=== PATIENT | male | born 1935 | race Caucasian/White ===

== ENCOUNTER 2020-06-03 07:11 | Outpatient (REF) | payer MEDICARE, OTHER, SELFPAY ==
[2020-06-03 08:22] LABS: MANUAL DIFF FLAG NO
[2020-06-03 08:35] LABS: Basophils Percent Auto 0.5 % (0-2); Eosinophils Absolute Auto 0.5 X10*3/uL (0.0-0.4); Eosinophils Percent Auto 6.8 % (0-4); Hematocrit 41.2 % (42-52); Hemoglobin 13.4 g/dl (14.0-18.0); Imm Gran Abs Auto 0.01 X10*3/uL (0.00-0.03); Imm Gran Pct Auto 0.1 % (0.0-0.4); Lymphocytes Absolute Auto 2.6 X10*3/uL (1.2-4.9); Mean Corpuscular HGB Conc 32.5 g/dl (31.0-36.0); Mean Corpuscular Hemoglobin 29.8 pg (27.0-33.0); Mean Corpuscular Volume 91.8 fL (80-98); Mean Platelet Volume 9.2 fL (9.4-12.4); Monocytes Absolute Auto 0.6 X10*3/uL (0.1-1.2); Monocytes Percent Auto 8.7 % (2-11); Neutrophils Absolute Auto 3.5 X10*3/uL (2.0-8.3); Neutrophils Percent Auto 47.9 % (45-73); Platelet Count 167 X10*3/uL (160-400); Red Blood Count 4.49 X10*6/uL (4.60-5.80); Red Cell Distribution Width 12.7 % (11.0-16.0); White Blood Count 7.3 X10*3/uL (4.8-10.8)
[2020-06-03 09:08] LABS: Alanine Aminotransferase 7 U/L (0-40); Albumin Level 3.3 g/dL (3.5-5.0); Alkaline Phosphatase 44 U/L (39-117); Anion Gap 12 (12-20); Aspartate Amino Transferase 10 U/L (5-37); Bilirubin Total 0.6 mg/dL (0.0-1.0); Blood Urea Nitrogen 14 mg/dL (9-16); Calcium 8.1 mg/dL (8.4-10.2); Carbon Dioxide 28 mmol/L (22-29); Chloride 106 mmol/L (96-108); Cholesterol 149 mg/dL; Estimated Glomerular Filt Rate > 60; Glucose Fasting 181 mg/dL (60-99); HDL Cholesterol 34 mg/dL; LDL Cholesterol Calculated 88 mg/dl; Potassium 4.2 mmol/l (3.3-5.1); Sodium 142 mmol/L (135-145); Total Protein 5.5 g/dL (6.5-8.0); Triglycerides 137 mg/dL
[2020-06-03 09:16] LABS: Prostate Specific Antigen 0.55 ng/mL (<0.05-4.0); Vitamin D 25-OH Total 19.9 ng/mL (>30)
== END 2020-06-03 07:12 | disposition home or self-care (01) ==
LOC: HO.HSH3E 07:11
PROVIDERS: Visit Provider Internal Medicine Medical Oncology
DX: E11.9 Type 2 diabetes mellitus without complications (principal); I50.9 Heart failure, unspecified; Z12.5 Encounter for screening for malignant neoplasm of prostate
CPT/HCPCS: 36415; 80053; 80061; 82306; 84153; 85025

== ENCOUNTER 2020-08-16 06:04 | Outpatient (REF) | payer MEDICARE, OTHER, SELFPAY ==
[2020-08-16 06:43] LABS: MANUAL DIFF FLAG NO
[2020-08-16 06:48] LABS: Basophils Percent Auto 0.6 % (0-2); Eosinophils Absolute Auto 0.4 X10*3/uL (0.0-0.4); Eosinophils Percent Auto 6.1 % (0-4); Hematocrit 39.3 % (42-52); Imm Gran Abs Auto 0.02 X10*3/uL (0.00-0.03); Imm Gran Pct Auto 0.3 % (0.0-0.4); Lymphocytes Absolute Auto 2.5 X10*3/uL (1.2-4.9); Lymphocytes Percent Auto 34.1 % (20-40); Mean Corpuscular HGB Conc 33.1 g/dl (31.0-36.0); Mean Corpuscular Hemoglobin 30.2 pg (27.0-33.0); Mean Corpuscular Volume 91.4 fL (80-98); Monocytes Absolute Auto 0.6 X10*3/uL (0.1-1.2); Monocytes Percent Auto 8.9 % (2-11); Neutrophils Absolute Auto 3.6 X10*3/uL (2.0-8.3); Platelet Count 153 X10*3/uL (160-400); Red Cell Distribution Width 13.2 % (11.0-16.0); White Blood Count 7.2 X10*3/uL (4.8-10.8)
[2020-08-16 06:55] LABS: Estimated Average Glucose 177 mg/dL; Hemoglobin A1c % 7.8 %
[2020-08-16 07:17] LABS: Alanine Aminotransferase 6 U/L (0-40); Albumin Level 3.3 g/dL (3.5-5.0); Alkaline Phosphatase 42 U/L (39-117); Anion Gap 10 (12-20); Aspartate Amino Transferase 11 U/L (5-37); Bilirubin Total 0.5 mg/dL (0.0-1.0); Blood Urea Nitrogen 10 mg/dL (9-16); Calcium 8.2 mg/dL (8.4-10.2); Carbon Dioxide 30 mmol/L (22-29); Chloride 104 mmol/L (96-108); Cholesterol 145 mg/dL; Estimated Glomerular Filt Rate > 60; Glucose Fasting 131 mg/dL (60-99); HDL Cholesterol 35 mg/dL; LDL Cholesterol Calculated 79 mg/dl; Sodium 140 mmol/L (135-145); Total Protein 5.2 g/dL (6.5-8.0); Triglycerides 158 mg/dL
[2020-08-16 07:37] LABS: Prostate Specific Antigen 0.41 ng/mL (<0.05-4.0)
== END 2020-08-16 06:05 | disposition home or self-care (01) ==
LOC: HO.HSH3E 06:04
PROVIDERS: Visit Provider Internal Medicine Medical Oncology
DX: E11.9 Type 2 diabetes mellitus without complications (principal); I21.9 Acute myocardial infarction, unspecified
CPT/HCPCS: 36415; 80053; 80061; 83036; 84153; 85025

== ENCOUNTER 2020-12-17 05:50 | Outpatient (REF) | payer MEDICARE, OTHER, SELFPAY ==
[2020-12-17 08:13] LABS: Estimated Average Glucose 192 mg/dL; Hemoglobin A1c % 8.3 %
[2020-12-17 08:15] LABS: Alanine Aminotransferase < 6 U/L (0-40); Albumin Level 3.5 g/dL (3.5-5.0); Alkaline Phosphatase 48 U/L (39-117); Anion Gap 9 (12-20); Aspartate Amino Transferase 12 U/L (5-37); Bilirubin Total 0.4 mg/dL (0.0-1.0); Blood Urea Nitrogen 12 mg/dL (9-16); Calcium 8.9 mg/dL (8.4-10.2); Carbon Dioxide 32 mmol/L (22-29); Chloride 103 mmol/L (96-108); Cholesterol 151 mg/dL; Estimated Glomerular Filt Rate > 60; Glucose Random 119 mg/dL (60-115); HDL Cholesterol 35 mg/dL; LDL Cholesterol Calculated 85 mg/dl; Potassium 4.4 mmol/L (3.3-5.1); Sodium 140 mmol/L (135-145); Total Protein 5.8 g/dL (6.5-8.0); Triglycerides 159 mg/dL
[2020-12-17 08:25] LABS: Prostate Specific Antigen Scr 0.44 ng/mL (<0.05-4.0)
== END 2020-12-17 05:51 | disposition home or self-care (01) ==
LOC: HO.HSH3E 05:50
PROVIDERS: Visit Provider Internal Medicine Medical Oncology
DX: E11.9 Type 2 diabetes mellitus without complications (principal); N40.0 Benign prostatic hyperplasia without lower urinary tract symptoms
CPT/HCPCS: 36415; 80053; 80061; 82306; 83036; 84153

== ENCOUNTER 2021-05-25 08:45 | Outpatient (REF) | payer MEDICARE, OTHER, SELFPAY | END 2021-05-25 08:46 | disposition home or self-care (01) | LOC: HO.HSH3E 08:45 | PROVIDERS: Visit Provider Internal Medicine Medical Oncology | DX: L98.8 Other specified disorders of the skin and subcutaneous tissue (principal) | CPT/HCPCS: 88305 ==

== ENCOUNTER 2021-06-01 10:51 | Outpatient (REF) | payer MEDICARE, OTHER, SELFPAY ==
[2021-06-01 11:20] LABS: Basophils Percent Auto 0.3 % (0-2); Eosinophils Absolute Auto 0.2 X10*3/uL (0.0-0.4); Eosinophils Percent Auto 1.3 % (0-4); Hematocrit 38.9 % (42.0-52.0); Hemoglobin 12.7 g/dl (14.0-18.0); Imm Gran Abs Auto 0.05 X10*3/uL (0.00-0.03); Imm Gran Pct Auto 0.4 % (0.0-0.4); Lymphocytes Absolute Auto 2.1 X10*3/uL (1.2-4.9); Lymphocytes Percent Auto 16.5 % (20-40); MANUAL DIFF FLAG NO; Mean Corpuscular HGB Conc 32.6 g/dl (31.0-36.0); Mean Corpuscular Hemoglobin 29.9 pg (27.0-33.0); Mean Corpuscular Volume 91.5 fL (80.0-98.0); Monocytes Percent Auto 7.9 % (2-11); Neutrophils Absolute Auto 9.4 x10*3/uL (2.0-8.3); Neutrophils Percent Auto 73.6 % (45-73); Platelet Count 158 X10*3/uL (160-400); Red Blood Count 4.25 X10*6/uL (4.60-5.80); Red Cell Distribution Width 13.5 % (11.0-16.0); White Blood Count 12.7 X10*3/uL (4.8-10.8)
[2021-06-01 11:58] LABS: Alanine Aminotransferase 9 U/L (0-40); Albumin Level 3.2 g/dL (3.5-5.0); Alkaline Phosphatase 53 U/L (39-117); Anion Gap 11 (12-20); Aspartate Amino Transferase 9 U/L (5-37); Bilirubin Total 0.5 mg/dL (0.0-1.0); Blood Urea Nitrogen 12 mg/dL (9-16); Calcium 8.7 mg/dL (8.4-10.2); Carbon Dioxide 28 mmol/L (22-29); Chloride 104 mmol/L (96-108); Estimated Glomerular Filt Rate > 60; Glucose Fasting 291 mg/dL (60-99); Potassium 4.3 mmol/L (3.3-5.1); Sodium 139 mmol/L (135-145); Total Protein 5.4 g/dL (6.5-8.0)
== END 2021-06-01 10:52 | disposition home or self-care (01) ==
LOC: HO.HSH3E 10:51
PROVIDERS: Visit Provider Internal Medicine Medical Oncology
DX: I95.9 Hypotension, unspecified (principal); R10.9 Unspecified abdominal pain
CPT/HCPCS: 36415; 80053; 85025

== ENCOUNTER 2021-06-16 09:51 | Outpatient (REF) | payer MEDICARE, OTHER, SELFPAY ==
[2021-06-16 10:07] LABS: MANUAL DIFF FLAG NO
[2021-06-16 10:15] LABS: Basophils Percent Auto 0.2 % (0-2); Eosinophils Percent Auto 0.2 % (0-4); Hematocrit 40.2 % (42.0-52.0); Hemoglobin 13.2 g/dl (14.0-18.0); Imm Gran Abs Auto 0.03 X10*3/uL (0.00-0.03); Imm Gran Pct Auto 0.3 % (0.0-0.4); Lymphocytes Absolute Auto 1.2 X10*3/uL (1.2-4.9); Lymphocytes Percent Auto 12.9 % (20-40); Mean Corpuscular HGB Conc 32.8 g/dl (31.0-36.0); Mean Corpuscular Hemoglobin 29.6 pg (27.0-33.0); Mean Corpuscular Volume 90.1 fL (80.0-98.0); Mean Platelet Volume 9.3 fL (9.4-12.4); Monocytes Absolute Auto 1.2 X10*3/uL (0.1-1.2); Monocytes Percent Auto 12.9 % (2-11); Neutrophils Absolute Auto 6.6 x10*3/uL (2.0-8.3); Neutrophils Percent Auto 73.5 % (45-73); Platelet Count 164 X10*3/uL (160-400); Red Blood Count 4.46 X10*6/uL (4.60-5.80); Red Cell Distribution Width 13.4 % (11.0-16.0)
[2021-06-16 11:07] LABS: Alanine Aminotransferase 8 U/L (0-40); Albumin Level 3.2 g/dL (3.5-5.0); Alkaline Phosphatase 51 U/L (39-117); Anion Gap 12 (12-20); Aspartate Amino Transferase 15 U/L (5-37); Bilirubin Total 0.6 mg/dL (0.0-1.0); Blood Urea Nitrogen 16 mg/dL (9-16); Calcium 8.6 mg/dL (8.4-10.2); Carbon Dioxide 28 mmol/L (22-29); Chloride 103 mmol/L (96-108); Estimated Glomerular Filt Rate > 60; Glucose Random 264 mg/dL (60-115); Potassium 4.5 mmol/L (3.3-5.1); Sodium 138 mmol/L (135-145); Total Protein 5.6 g/dL (6.5-8.0)
== END 2021-06-16 09:52 | disposition home or self-care (01) ==
LOC: HO.HSH2S 09:51
PROVIDERS: Visit Provider Internal Medicine Medical Oncology
DX: Z13.89 Encounter for screening for other disorder (principal)
CPT/HCPCS: 36415; 80053; 85025

== ENCOUNTER 2021-06-16 20:12 | Inpatient (IN) | payer MEDICARE, OTHER, SELFPAY ==
--- NOTE | ~2021-06-16 | MR_ITS ---
MRI OF THE BRAIN WITHOUT IV CONTRAST INDICATION: Weakness. COMPARISON: CT head 06/17/2021. TECHNIQUE: Multiplanar multisequence MR imaging of the brain was obtained without IV contrast. FINDINGS: There is no hydrocephalus, extra-axial surface collection, or herniation. 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 The major flow voids at the skull base are preserved. There is no acute infarct on diffusion-weighted imaging. There is no intracranial hemorrhage on the gradient recalled echo acquisition. Small focus of chronic hemosiderin staining within the posterior right putamen. Punctate focus of chronic hemosiderin staining within the left parietal lobe. Partially empty sella. The cerebellar tonsils are normally positioned. Chronic lacunar infarcts within the cerebellar hemispheres bilaterally and the deep sparks nuclei bilaterally. The craniocervical junction is normal. Osseous marrow signal intensity is homogenous. The visualized soft tissues are unremarkable. There are large bilateral mastoid effusions and the middle ear cavities are completely opacified bilaterally, unchanged. MR/MR head/brain wo con IMPRESSION: - No acute intracranial findings. No acute infarcts. 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 Chronic lacunar infarcts within the cerebellar hemispheres bilaterally and the deep sparks nuclei bilaterally. - There are large bilateral mastoid effusions and the middle ear cavities are completely opacified bilaterally, unchanged.
--- NOTE | ~2021-06-16 | XR_ITS ---
EXAMINATION: XR ABDOMEN KUB CLINICAL INDICATION: Pre-MRI. Altered mental status. COMPARISON: None TECHNIQUE: AP view of the abdomen. FINDINGS: There is a catheter projecting over the midline pelvis probably representing a Ibrahim catheter. There is a question of a small right pelvic vascular stent. No other soft tissue foreign body is seen. The bowel gas pattern is normal. No calcifications are seen. There are degenerative changes of the spine and hip joints. 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 There are old left posterior seventh rib fracture. XR/XR KUB IMPRESSION: Catheter in the pelvis probably representing a Ibrahim catheter. Question vascular stent in the right pelvis. Post-CABG changes.
--- NOTE | ~2021-06-16 | CT_ITS ---
EXAMINATION: CT HEAD WITHOUT CONTRAST CLINICAL INFORMATION: Acute mental status change COMPARISON: None TECHNIQUE: Contiguous axial imaging was performed from the skull base to vertex without intravenous administration of contrast. This CT examination was performed using dose optimization techniques as appropriate, variously including the following: *Automated exposure control *Adjustment of mA and/or kV according to patient size (this includes techniques or standardized protocols for targeted exams where dose is matched to indication/reason for exam; i.e. extremities or head) *Use of iterative reconstruction technique DLP: 739 mGy-cm FINDINGS: There is no evidence of an extra-axial collection. There is no evidence of intra-axial or extra-axial hemorrhage. Ventricles and extra-axial CSF spaces are prominent suggestive of generalized atrophy. There is nonspecific periventricular white matter disease. No mass, effect or acute infarct is seen. There is evidence of atherosclerotic disease. No skull fracture or bone lesion is seen. There is bilateral otomastoiditis. Visualized paranasal sinuses are clear. CT/CT head/brain wo con IMPRESSION: Generalized atrophy and nonspecific periventricular white matter disease. Bilateral otomastoiditis.
--- NOTE | ~2021-06-16 | XR_ITS ---
EXAMINATION: XR CHEST CLINICAL INFORMATION: Dyspnea COMPARISON: None TECHNIQUE: Frontal view of the chest was obtained. FINDINGS: Sternal wires and surgical clips overlie the chest. Cardiac and mediastinal contours are normal. Pulmonary vasculature is unremarkable. Borderline low lung volumes. Mild dependent atelectasis. No consolidation, pneumothorax, or pleural effusion. Old healed left-sided rib fractures. No acute osseous findings. XR/XR chest 1V IMPRESSION: No acute pulmonary findings.
--- NOTE | ~2021-06-16 | CT_ITS ---
EXAMINATION: CT ANGIOGRAM OF THE CHEST WITH AND WITHOUT CONTRAST (CT PULMONARY ANGIOGRAM FOR PE) CLINICAL INFORMATION: Reason for Exam acute sob covi d+ COMPARISON: Chest radiograph from 06/16/2021 TECHNIQUE: Prior to contrast administration, noncontrast localization images were obtained. Subsequently, multidetector volumetric imaging was performed from the thoracic inlet to below the diaphragms following the administration of 65 mL Omnipaque 350 intravenous contrast. No contrast reaction reported Sagittal, coronal, and MIP oblique sagittal reformatted images were obtained on the CT workstation, uploaded to PACS, and reviewed. This CT examination was performed using dose optimization techniques as appropriate, variously including the following: *Automated exposure control *Adjustment of mA and/or kV according to patient size (this includes techniques or standardized protocols for targeted exams where dose is matched to indication/reason for exam; i.e. extremities or head) *Use of iterative reconstruction technique Total exam dose-length product 457 mGy-cm FINDINGS: QUALITY OF STUDY/CONTRAST BOLUS: Satisfactory. PULMONARY ARTERIES: No central or segmental pulmonary emboli. THORACIC AORTA: No aneurysm or dissection. LUNG: Motion limits evaluation of the lung. The central airways are patent. Dependent right lung atelectasis. No consolidation otherwise. No definite pulmonary nodules. PLEURA: No pleural effusion or pneumothorax. MEDIASTINUM: Normal heart size. Coronary artery calcifications. No pericardial effusion. No hilar or mediastinal lymphadenopathy. No evidence of septal bowing or right heart strain. CHEST WALL/AXILLA: No axillary or internal mammary lymphadenopathy. OSSEOUS STRUCTURES: No acute or suspicious osseous abnormality. Degenerative change throughout the spine. Median sternotomy wires. UPPER ABDOMEN: High attenuation layering in the gallbladder suggestive of stones and sludge. No reflux of contrast into the hepatic veins to suggest elevated right heart pressures. CT/CT angio chest PE protocol IMPRESSION: No pulmonary embolism. Motion limits evaluation of the lungs with minimal atelectasis seen. They are otherwise grossly clear. Stones and sludge in the gallbladder. VTE: negative
[2021-06-16 20:29] VITALS: BP 149/88; PULSE 101; RESP 30; TEMP 39.3; O2SAT 94; BMI 24.4
--- NOTE | 2021-06-16 20:32 | ECG_ITS ---
Test Reason : SOB Blood Pressure : / mmHG Vent. Rate : 111 BPM Atrial Rate : 000 BPM P-R Int : 000 ms QRS Dur : 112 ms QT Int : 336 ms P-R-T Axes : 000 072 -13 degrees QTc Int : 456 ms Accelerated Junctional rhythm Right bundle branch block Inferior infarct , age undetermined Abnormal ECG No previous ECGs available Referred By: Generic ED Physician Electronically Signed By:Roosevelt Triplett
--- NOTE | 2021-06-16 20:44 | ED_ITS ---
HPI - SOB/Dyspnea General Chief Complaint: Dyspnea Stated Complaint: covid+ decreased o2 sat Time Seen by Provider: 06/16/21 20:44 Source: family and EMS History of Present Illness HPI Narrative: pt With history of coronary artery disease atrial fibrillation CHF vaccinated against COVID including the booster dose also had COVID last year was doing okay till morning insert and shortness of breath retested for COVID came out positive. Patient was saturating 70% on 2 L improved to 83% on 3 L a non-rebreather saturating 95%. Patient DNR DNI okay for CPAP patient is nonverbal with dementia Related Data Allergies Allergy/AdvReac Type Severity Reaction Status Date / Time No Known Allergies Allergy Verified 06/16/21 20:44 Review of Systems Review of Systems: Yes Unobtainable due to mental status PMFSH Social History Social History Advance Directives: No Advance Directives Information Provided: No Physical Exam Vital Signs: Vital Signs: Last Vital Signs Temp 99.6 F 06/16/21 22:17 Pulse 92 06/16/21 23:55 Resp 30 H 06/16/21 23:55 BP 106/53 L 06/16/21 23:55 Pulse Ox 99 06/16/21 23:55 BMI result Body Mass Index 24.4 Appearance: Lethargic aphasic in moderate respiratory distress Eyes: No pallor or icterus ENT: Pharynx normal. Oral Mucosa moist Neck: Normal inspection. Neck supple. CVS: Normal heart rate and rhythm. Pulses normal. Respiratory: No respiratory distress. Equal air entry bilateral, no wheezing/rales/rhonchi Abdomen: Soft and nontender. Bowel sounds are present, no mass palpable Skin: Skin warm and dry. Normal skin color. Normal skin turgor. Extremities: No lower extremity edema. No calf tenderness Neuro:lethargic, apahsic, residual motor weakness L side. MDM - SOB/Dyspnea MDM Narrative Medical decision making narrative: Patient COVID positive x-ray without any significant infiltrate workup showed elevated BNP to 305 patient responded to IV Lasix breathing better on 2 L 95% looks very comfortable patient's lactic acid level was 2.1 likely from hypoxia. Will admit patient for supportive treatment patient was given IV Rocephin for fever Lab Data Attestation: I reviewed the patient's lab results. Result diagrams: 06/16/21 20:41 06/16/21 20:41 Labs: Lab Results 06/16/21 06/16/21 06/16/21 Range/Units 20:41 20:41 20:41 WBC 10.9 H (4.8-10.8) X10*3/uL RBC 4.55 L (4.60-5.80) X10*6/uL Hgb 13.6 L (14.0-18.0) g/dl Hct 41.2 L (42.0-52.0) % MCV 90.5 (80.0-98.0) fL MCH 29.9 (27.0-33.0) pg MCHC 33.0 (31.0-36.0) g/dl RDW 13.7 (11.0-16.0) % Plt Count 166 (160-400) X10*3/uL MPV 9.0 L (9.4-12.4) fL Immature Gran % (Auto) 0.4 (0.0-0.4) % Neut % (Auto) 75.3 H (45-73) % Lymph % (Auto) 13.0 L (20-40) % [place] % (Auto) 10.9 (2-11) % Eos % (Auto) 0.1 (0-4) % Baso % (Auto) 0.3 (0-2) % Lymph # (Auto) 1.4 (1.2-4.9) X10*3/uL [place] # (Auto) 1.2 (0.1-1.2) X10*3/uL Eos # (Auto) 0.0 (0.0-0.4) X10*3/uL Baso # (Auto) 0.0 (0.0-0.2) X10*3/uL Abs Immat Gran (auto) 0.04 H (0.00-0.03) X10*3/uL Absolute Neuts (auto) 8.2 (2.0-8.3) x10*3/uL Absolute Nucleated RBC 0.000 (0.0-0.012) X10*3/uL Nucleated RBC % (auto) 0.0 (0.0-0.2) /100WBC VBG pH (7.32-7.43) VBG pCO2 mmHg VBG pO2 mmHg VBG HCO3 (22-26) mmol/L VBG O2 Saturation % VBG Base Excess mmol/L Sodium 139 (135-145) mmol/L Potassium 4.9 (3.3-5.1) mmol/L Chloride 104 (96-108) mmol/L Carbon Dioxide 27 (22-29) mmol/L Anion Gap 13 (12-20) BUN 16 (9-16) mg/dL Creatinine 0.69 (0.5-1.4) mg/dL Estim Creat Clear Calc 78.2 Estimated GFR > 60 Random Glucose 237 H (60-115) mg/dL Lactic Acid (0.5-2.0) mmol/L Calcium 8.7 (8.4-10.2) mg/dL Magnesium (1.6-2.6) mg/dL Troponin I High Sens 34.0 (<3.5-35.0) ng/L B-Natriuretic Peptide (<100) pg/mL Urine Color Urine Appearance Urine pH (5.0-8.0) Ur Specific [place] (1.005-1.025) Urine Protein (NEG-TRACE) MG/DL Urine Glucose (UA) (NEG) MG/DL Urine Ketones (NEG) MG/DL Urine Blood (NEG) Urine Nitrite (NEG) Ur Leukocyte Esterase (NEG) Urine RBC (0) /HPF Urine WBC (0-4) /HPF Ur Squamous Epith Cells /LPF Urine Bacteria /LPF Hyaline Casts /LPF Granular Casts /LPF Urine Mucus /LPF COVID-19 (JACQUI) (Negative) COVID-19 Clin Com 06/16/21 06/16/21 06/16/21 Range/Units 21:44 21:44 21:44 WBC (4.8-10.8) X10*3/uL RBC (4.60-5.80) X10*6/uL Hgb (14.0-18.0) g/dl Hct (42.0-52.0) % MCV (80.0-98.0) fL MCH (27.0-33.0) pg MCHC (31.0-36.0) g/dl RDW (11.0-16.0) % Plt Count (160-400) X10*3/uL MPV (9.4-12.4) fL Immature Gran % (Auto) (0.0-0.4) % Neut % (Auto) (45-73) % Lymph % (Auto) (20-40) % [place] % (Auto) (2-11) % Eos % (Auto) (0-4) % Baso % (Auto) (0-2) % Lymph # (Auto) (1.2-4.9) X10*3/uL [place] # (Auto) (0.1-1.2) X10*3/uL Eos # (Auto) (0.0-0.4) X10*3/uL Baso # (Auto) (0.0-0.2) X10*3/uL Abs Immat Gran (auto) (0.00-0.03) X10*3/uL Absolute Neuts (auto) (2.0-8.3) x10*3/uL Absolute Nucleated RBC (0.0-0.012) X10*3/uL Nucleated RBC % (auto) (0.0-0.2) /100WBC VBG pH (7.32-7.43) VBG pCO2 mmHg VBG pO2 mmHg VBG HCO3 (22-26) mmol/L VBG O2 Saturation % VBG Base Excess mmol/L Sodium (135-145) mmol/L Potassium (3.3-5.1) mmol/L Chloride (96-108) mmol/L Carbon Dioxide (22-29) mmol/L Anion Gap (12-20) BUN (9-16) mg/dL Creatinine (0.5-1.4) mg/dL Estim Creat Clear Calc Estimated GFR Random Glucose (60-115) mg/dL Lactic Acid 2.1 H* (0.5-2.0) mmol/L Calcium (8.4-10.2) mg/dL Magnesium (1.6-2.6) mg/dL Troponin I High Sens (<3.5-35.0) ng/L B-Natriuretic Peptide 305 H (<100) pg/mL Urine Color Urine Appearance Urine pH (5.0-8.0) Ur Specific [place] (1.005-1.025) Urine Protein (NEG-TRACE) MG/DL Urine Glucose (UA) (NEG) MG/DL Urine Ketones (NEG) MG/DL Urine Blood (NEG) Urine Nitrite (NEG) Ur Leukocyte Esterase (NEG) Urine RBC (0) /HPF Urine WBC (0-4) /HPF Ur Squamous Epith Cells /LPF Urine Bacteria /LPF Hyaline Casts /LPF Granular Casts /LPF Urine Mucus /LPF COVID-19 (JACQUI) Positive A (Negative) COVID-19 Clin Com See Note 06/16/21 06/16/21 06/16/21 Range/Units 21:44 21:51 22:01 WBC (4.8-10.8) X10*3/uL RBC (4.60-5.80) X10*6/uL Hgb (14.0-18.0) g/dl Hct (42.0-52.0) % MCV (80.0-98.0) fL MCH (27.0-33.0) pg MCHC (31.0-36.0) g/dl RDW (11.0-16.0) % Plt Count (160-400) X10*3/uL MPV (9.4-12.4) fL Immature Gran % (Auto) (0.0-0.4) % Neut % (Auto) (45-73) % Lymph % (Auto) (20-40) % [place] % (Auto) (2-11) % Eos % (Auto) (0-4) % Baso % (Auto) (0-2) % Lymph # (Auto) (1.2-4.9) X10*3/uL [place] # (Auto) (0.1-1.2) X10*3/uL Eos # (Auto) (0.0-0.4) X10*3/uL Baso # (Auto) (0.0-0.2) X10*3/uL Abs Immat Gran (auto) (0.00-0.03) X10*3/uL Absolute Neuts (auto) (2.0-8.3) x10*3/uL Absolute Nucleated RBC (0.0-0.012) X10*3/uL Nucleated RBC % (auto) (0.0-0.2) /100WBC VBG pH 7.42 (7.32-7.43) VBG pCO2 39 mmHg VBG pO2 115 mmHg VBG HCO3 25 (22-26) mmol/L VBG O2 Saturation 99.0 % VBG Base Excess 1.4 mmol/L Sodium (135-145) mmol/L Potassium (3.3-5.1) mmol/L Chloride (96-108) mmol/L Carbon Dioxide (22-29) mmol/L Anion Gap (12-20) BUN (9-16) mg/dL Creatinine (0.5-1.4) mg/dL Estim Creat Clear Calc Estimated GFR Random Glucose (60-115) mg/dL Lactic Acid (0.5-2.0) mmol/L Calcium (8.4-10.2) mg/dL Magnesium 1.7 (1.6-2.6) mg/dL Troponin I High Sens (<3.5-35.0) ng/L B-Natriuretic Peptide (<100) pg/mL Urine Color YELLOW Urine Appearance CLEAR Urine pH 5.5 (5.0-8.0) Ur Specific [place] >= 1.030 H (1.005-1.025) Urine Protein 1+ H (NEG-TRACE) MG/DL Urine Glucose (UA) 100 H (NEG) MG/DL Urine Ketones NEG (NEG) MG/DL Urine Blood TRACE (NEG) Urine Nitrite NEG (NEG) Ur Leukocyte Esterase NEG (NEG) Urine RBC 5-9 H (0) /HPF Urine WBC 1-4 (0-4) /HPF Ur Squamous Epith Cells 1+ /LPF Urine Bacteria 2+ /LPF Hyaline Casts 5-9 /LPF Granular Casts 0-2 /LPF Urine Mucus 2+ /LPF COVID-19 (JACQUI) (Negative) COVID-19 Clin Com Critical Care Time Critical Care Time Critical Care Time: Yes Total Critical Care Time: 45 Attestation: I spent 45 minutes of critical care, with interventions, assessments, speaking to patient, consultants, and family. Discharge Plan Discharge Clinical Impression: Acute respiratory disease due to COVID-19 virus Congestive heart failure Qualifiers: Heart failure type: systolic Heart failure chronicity: acute on chronic Qualified Code(s): I50.23 - Acute on chronic systolic (congestive) heart failure Patient Disposition: Admitted As Inpatient
[2021-06-16 20:46] LABS: MANUAL DIFF FLAG NO
[2021-06-16 20:47] LABS: Basophils Percent Auto 0.3 % (0-2); Eosinophils Percent Auto 0.1 % (0-4); Hematocrit 41.2 % (42.0-52.0); Hemoglobin 13.6 g/dl (14.0-18.0); Imm Gran Abs Auto 0.04 X10*3/uL (0.00-0.03); Imm Gran Pct Auto 0.4 % (0.0-0.4); Lymphocytes Absolute Auto 1.4 X10*3/uL (1.2-4.9); Mean Corpuscular Hemoglobin 29.9 pg (27.0-33.0); Mean Corpuscular Volume 90.5 fL (80.0-98.0); Monocytes Absolute Auto 1.2 X10*3/uL (0.1-1.2); Monocytes Percent Auto 10.9 % (2-11); Neutrophils Absolute Auto 8.2 x10*3/uL (2.0-8.3); Neutrophils Percent Auto 75.3 % (45-73); Platelet Count 166 X10*3/uL (160-400); Red Blood Count 4.55 X10*6/uL (4.60-5.80); Red Cell Distribution Width 13.7 % (11.0-16.0); White Blood Count 10.9 X10*3/uL (4.8-10.8)
[2021-06-16 21:01] LABS: Anion Gap 13 (12-20); Blood Urea Nitrogen 16 mg/dL (9-16); Calcium 8.7 mg/dL (8.4-10.2); Carbon Dioxide 27 mmol/L (22-29); Chloride 104 mmol/L (96-108); Creatinine Clr Calc Pharmacy 78.2; Estimated Glomerular Filt Rate > 60; Glucose Random 237 mg/dL (60-115); Potassium 4.9 mmol/L (3.3-5.1); Sodium 139 mmol/L (135-145)
[2021-06-16 22:00] LABS: Venous Blood Gas Refer to POC result
[2021-06-16 22:01] LABS: VBG Base Excess 1.4 mmol/L; VBG HCO3 25 mmol/L (22-26); VBG pCO2 39 mmHg; VBG pH 7.42 (7.32-7.43); VBG pO2 115 mmHg
[2021-06-16 22:07] LABS: COVID-19 Test Positive (Negative); IDNOW Serial# 55D5AD1C
[2021-06-16] MEDS: Furosemide 20 MG/2 ML VIAL IVPUSH (22:09)
[2021-06-16 22:10] LABS: Magnesium 1.7 mg/dL (1.6-2.6)
[2021-06-16] MEDS: Acetaminophen Supp 650 MG SUPP.RECT PR (22:11)
[2021-06-16] MEDS: cefTRIAXone sodium 1 GM in 0.9 % Sodium Chloride 50 ML IV (22:11)
[2021-06-16 22:16] LABS: Lactic Acid 2.1 mmol/L (0.5-2.0)
[2021-06-16 22:17] VITALS: BP 109/58; PULSE 104; RESP 31; TEMP 37.6; O2SAT 95
[2021-06-16 22:17] LABS: B Type Natriuretic Peptide 305 pg/mL (<100)
[2021-06-16 22:19] LABS: Appearance Urine CLEAR; Color Urine YELLOW; Glucose Urine UA 100 MG/DL (NEG); Leukocyte Esterase Urine NEG (NEG); Nitrite Urine NEG (NEG); PH 5.5 (5.0-8.0); Specific Gravity - Urine >= 1.030 (1.005-1.025); UACC Culture Trigger NO; Urine Blood TRACE (NEG); Urine Ketones NEG (NEG); Urine Protein 1+ MG/DL (NEG-TRACE)
[2021-06-16 22:28] LABS: Bacteria Urine 2+ /LPF; Mucus Urine 2+ /LPF; Squamous Epithelial Cell Urine 1+ /LPF
[2021-06-16 22:29] LABS: Granular Casts Urine 0-2 /LPF
--- NOTE | 2021-06-16 23:07 | P.HPHOSP_ITS ---
History of Present Illness Date of Service: 06/16/21 Chief Complaint: Altered mental status/hypoxia 85-year-old male with a past medical history of hypertension, hyperlipidemia, diabetes, CAD, CHF, AFib not on anticoagulation, prison resident, prior history of COVID-19 vaccination; presented to the hospital with a chief complaint of shortness of breath. Patient is altered; most of the history obtained from the records and ER staff. Reportedly patient has been not doing himself and oxygenation was noted to be 73% on 2 L of supplemental oxygen; increase patient's oxygen supplementation and subsequently sent him to the ER for further evaluation. Per ER team patient was noted to be drowsy, not responding to verbal commands; was hypoxic-placed on non-rebreather with improvement in oxygenation; coarse breath sounds. Blood pressure noted to be 106/53; also had low-grade temperature. Labs showed CBC within normal limits, chemistry normal except for lactate of 2.1 and proBNP slightly elevated; CTA chest showed no evidence of pulmonary embolism, limited evaluation but clear lungs. Patient was given Lasix 20 mg IV because of initial concerns for CHF. Admitted for further management PMFSH Pertinent family history: Patient unable to provide information Social History Advance Directives: No Advance Directives Information Provided: No Meds Allergies Allergy/AdvReac Type Severity Reaction Status Date / Time No Known Allergies Allergy Verified 06/16/21 20:44 Home Medications Medication Instructions Recorded Confirmed Last Taken Type apixaban 5 mg 5 mg PO BID 06/17/21 06/17/21 Unknown History tablet aspirin 81 mg 81 mg PO DAILY 06/17/21 06/17/21 Unknown History chewable tablet carvedilol 6.25 6.25 mg PO BID 06/17/21 06/17/21 Unknown History mg tablet cholecalciferol 50 mcg PO DAILY 06/17/21 06/17/21 Unknown History (vitamin D3) 50 mcg (2,000 unit) tablet insulin glargine 15 unit SUBCUT 06/17/21 06/17/21 Unknown History 100 unit/mL DAILY subcutaneous solution lisinopril 2.5 mg 2.5 mg PO DAILY 06/17/21 06/17/21 Unknown History tablet metformin 1,000 1,000 mg PO 06/17/21 06/17/21 Unknown History mg tablet DAILY metformin 500 mg 500 mg BEDTIME 06/17/21 06/17/21 Unknown History tablet sennosides 8.6 mg 17.2 mg PO 06/17/21 06/17/21 Unknown History tablet (senna) BEDTIME simvastatin 20 mg 20 mg PO BEDTIME 06/17/21 06/17/21 Unknown History tablet tamsulosin 0.4 mg 0.4 mg PO DAILY 06/17/21 06/17/21 Unknown History capsule Physical Exam Verdana 4l Vital Signs and Narrative: Verdana 4d Verdana 4d Vital Signs: Verdana 4d Verdana 4Bd Last Vital Signs Verdana 4d Resource Specialist New 4d Resource Specialist New 4d Temp 99.6 F 06/16/21 22:17 Resource Specialist New 4d Pulse 104 H 06/16/21 22:17 Resource Specialist NewNew 4d Resp 31 H 06/16/21 22:17 BP 109/58 L 06/16/21 22:17 Pulse Ox 95 06/16/21 22:17 BMI result Body Mass Index 24.4 Gen: Appears be in no acute distress HEENT: NCAT, Moist mucosa. Pulmonary: Coarse breath sounds. CVS: Normal S1-S2 Abdomen: BS+, Soft, Nontender Extremities: Warm well perfused Neuro: Drowsy, lethargic; moans to loud verbal commands. Results Labs CBC and Chem 7: 06/16/21 20:41 06/16/21 20:41 Labs: Laboratory Results - last 24 hr 06/16/21 06/16/21 06/16/21 20:41 20:41 20:41 MCV 90.5 MCH 29.9 MCHC 33.0 RDW 13.7 Plt Count 166 MPV 9.0 L Immature Gran % (Auto) 0.4 Neut % (Auto) 75.3 H Lymph % (Auto) 13.0 L [place] % (Auto) 10.9 Eos % (Auto) 0.1 Baso % (Auto) 0.3 Lymph # (Auto) 1.4 [place] # (Auto) 1.2 Eos # (Auto) 0.0 Baso # (Auto) 0.0 Abs Immat Gran (auto) 0.04 H Absolute Neuts (auto) 8.2 Absolute Nucleated RBC 0.000 Nucleated RBC % (auto) 0.0 VBG pH VBG pCO2 VBG pO2 VBG HCO3 VBG O2 Saturation VBG Base Excess Anion Gap 13 Estim Creat Clear Calc 78.2 Estimated GFR > 60 Random Glucose 237 H Lactic Acid Calcium 8.7 Magnesium Troponin I High Sens 34.0 B-Natriuretic Peptide Urine Color Urine Appearance Urine pH Ur Specific [place] Urine Protein Urine Glucose (UA) Urine Ketones Urine Blood Urine Nitrite Ur Leukocyte Esterase Urine RBC Urine WBC Ur Squamous Epith Cells Urine Bacteria Hyaline Casts Granular Casts Urine Mucus COVID-19 (JACQUI) COVID-19 Clin Com 06/16/21 06/16/21 06/16/21 21:44 21:44 21:44 MCV MCH MCHC RDW Plt Count MPV Immature Gran % (Auto) Neut % (Auto) Lymph % (Auto) [place] % (Auto) Eos % (Auto) Baso % (Auto) Lymph # (Auto) [place] # (Auto) Eos # (Auto) Baso # (Auto) Abs Immat Gran (auto) Absolute Neuts (auto) Absolute Nucleated RBC Nucleated RBC % (auto) VBG pH VBG pCO2 VBG pO2 VBG HCO3 VBG O2 Saturation VBG Base Excess Anion Gap Estim Creat Clear Calc Estimated GFR Random Glucose Lactic Acid 2.1 H* Calcium Magnesium Troponin I High Sens B-Natriuretic Peptide 305 H Urine Color Urine Appearance Urine pH Ur Specific [place] Urine Protein Urine Glucose (UA) Urine Ketones Urine Blood Urine Nitrite Ur Leukocyte Esterase Urine RBC Urine WBC Ur Squamous Epith Cells Urine Bacteria Hyaline Casts Granular Casts Urine Mucus COVID-19 (JACQUI) Positive A COVID-19 Clin Com See Note 06/16/21 06/16/21 06/16/21 21:44 21:51 22:01 MCV MCH MCHC RDW Plt Count MPV Immature Gran % (Auto) Neut % (Auto) Lymph % (Auto) [place] % (Auto) Eos % (Auto) Baso % (Auto) Lymph # (Auto) [place] # (Auto) Eos # (Auto) Baso # (Auto) Abs Immat Gran (auto) Absolute Neuts (auto) Absolute Nucleated RBC Nucleated RBC % (auto) VBG pH 7.42 VBG pCO2 39 VBG pO2 115 VBG HCO3 25 VBG O2 Saturation 99.0 VBG Base Excess 1.4 Anion Gap Estim Creat Clear Calc Estimated GFR Random Glucose Lactic Acid Calcium Magnesium 1.7 Troponin I High Sens B-Natriuretic Peptide Urine Color YELLOW Urine Appearance CLEAR Urine pH 5.5 Ur Specific [place] >= 1.030 H Urine Protein 1+ H Urine Glucose (UA) 100 H Urine Ketones NEG Urine Blood TRACE Urine Nitrite NEG Ur Leukocyte Esterase NEG Urine RBC 5-9 H Urine WBC 1-4 Ur Squamous Epith Cells 1+ Urine Bacteria 2+ Hyaline Casts 5-9 Granular Casts 0-2 Urine Mucus 2+ COVID-19 (JACQUI) COVID-19 Clin Com Imaging Radiologist's Impressions: Impressions Chest X-Ray 06/16/21 20:40 IMPRESSION: No acute pulmonary findings. Assessment and Plan (1) Acute respiratory disease due to COVID-19 virus: Status: Acute 85-year-old male with a past medical history of hypertension, hyperlipidemia, diabetes, CAD, CHF, AFib not on anticoagulation, prison resident, prior history of COVID-19 vaccination; presented to the hospital with a chief complaint of shortness of breath/hypoxia. Admitted for further management. Altered mental status: Likely toxic metabolic encephalopathy. Unable to do CT head as patient already received contrast in the ER. Supportive care. NPO Speech and swallow eval For patient's oxygenation improved patient become more alert. Acute hypoxic respiratory failure: Likely in the setting of COVID-19 infection. Initially on non-rebreather on presentation to the ER. Subsequently transitioned to nasal cannula 3 L. Will keep the patient on Decadron CT chest showed no evidence of pulmonary embolism and also noted to have clear lungs. Will hold of antibiotics. Id consult for further recommendations. History of hypertension: Hold home antihypertensives given blood pressure is currently on the soft side. History of CHF: Stable. Patient received Lasix IV x1 in the ER. History of AFib: Patient mildly tachycardic. Continue home metoprolol. Patient Eliquis on hold until CT head is done after 24 hours from the CTA chest to rule out any intracranial process. For all other chronic conditions, home medications will be continued, pending med rec. DVT prophylaxis: SCD boots for now; holding Eliquis,ASA is unable to do CT head for now. Code status: DNR/DNI Quality Stroke Does the patient have a stroke diagnosis?: No VTE Prior VTE?: No VTE Risk Level:: Medical - moderate - high VTE Device Contraindication: Treatment Not Indicated VTE Drug Contraindication: N/A - Med Ordered
[2021-06-16 23:51] LABS: Reflex Lactate? Lactic Acid Added
[2021-06-16 23:55] VITALS: BP 106/53; PULSE 92; RESP 30; O2SAT 99
[2021-06-17] VITALS (7 sets, daily range): BP systolic 115–145; BP diastolic 49–71; PULSE 64–112; RESP 20–32; TEMP 37.2–37.8; O2SAT 94–100
--- NOTE | 2021-06-17 02:41 | PC.NURSE ---
On arrival pt was lethargic, required NRB for adequate oxygenation. s/p lasix administration pt w/ decreased WOB, weaned to NC, increased LOC. Remains confused. Coude catheter placed, + urine output. Pt difficult stick, several attempts required in order to collect all bloodwork. Second IV placed w/ US for CTPE. Pt attached to monitor, vitals as charted. Satting 99% on 2.5L NC
[2021-06-17] MEDS: iohexoL 350 MG/ML 100 ML INFUS..BTL 65 ML IV (02:49)
[2021-06-17 03:40] LABS: ~Lactic Acid-LAB USE ONLY 1.7 mmol/L (0.5-2.0)
[2021-06-17 07:33] LABS: MANUAL DIFF FLAG NO
[2021-06-17 07:36] LABS: Basophils Percent Auto 0.2 % (0-2); Hematocrit 41.6 % (42.0-52.0); Hemoglobin 13.4 g/dl (14.0-18.0); Imm Gran Abs Auto 0.04 X10*3/uL (0.00-0.03); Imm Gran Pct Auto 0.3 % (0.0-0.4); Lymphocytes Absolute Auto 1.4 X10*3/uL (1.2-4.9); Mean Corpuscular HGB Conc 32.2 g/dl (31.0-36.0); Mean Corpuscular Hemoglobin 29.3 pg (27.0-33.0); Monocytes Absolute Auto 1.1 X10*3/uL (0.1-1.2); Monocytes Percent Auto 9.6 % (2-11); Neutrophils Percent Auto 77.9 % (45-73); Platelet Count 168 X10*3/uL (160-400); Red Blood Count 4.57 X10*6/uL (4.60-5.80); Red Cell Distribution Width 13.6 % (11.0-16.0); White Blood Count 11.5 X10*3/uL (4.8-10.8)
[2021-06-17 07:53] LABS: Anion Gap 13 (12-20); Blood Urea Nitrogen 15 mg/dL (9-16); Calcium 8.4 mg/dL (8.4-10.2); Carbon Dioxide 27 mmol/L (22-29); Chloride 102 mmol/L (96-108); Creatinine Clr Calc Pharmacy 93.1; Estimated Glomerular Filt Rate > 60; Glucose Random 187 mg/dL (60-115); Sodium 138 mmol/L (135-145)
[2021-06-17] MEDS: dexAMETHasone sod phosphate 4 MG/ML VIAL 6 MG IVPUSH (08:34)
--- NOTE | 2021-06-17 08:38 | PC.NURSE ---
Addendum entered by Raghu Mckeon 06/17/21 08:41: *mcdaniel cath. oral meds held secondary to level of consciousness Original Note: pt very drowsy. non responsive vocally but does open eyes, he remains tachypnic. O2 nc at 2l support. oley cath has approx 200ml urinary output in the mcdaniel cath.
[2021-06-17] MEDS: 0.9 % Sodium Chloride Flush 3 ML SYRINGE IVFLUSH (08:43)
--- NOTE | 2021-06-17 09:10 | PC.NURSE ---
SPOKE WITH DAUGHTER ARIELLE [phone], PROVIDED UPDATE
--- NOTE | 2021-06-17 12:16 | PC.NURSE ---
patient currently sleeping, gambling monitor intact, nsr on monitor, mcdaniel cath patient/draining vss, will continue to monitor
[2021-06-17 13:14] LABS: Glucose, Whole Blood 194 mg/dL (60-115)
--- NOTE | 2021-06-17 13:40 | P.PNIM_ITS ---
Subjective Subjective Date of Service: 06/17/21 Interval History: pt seen and examined at bedside. has been sleeping per nurse, all morning. opens eyes and grimaces to painful stimuli but does not stay awake. unable to obtain any hx or ROS Review of Systems Review of Systems: Yes Unobtainable due to mental condition and Unobtainable due to mental status Physical Exam Vital Signs: Vital Signs: Last Vital Signs Temp 98.9 F 06/17/21 08:30 Pulse 71 06/17/21 12:00 Resp 21 H 06/17/21 12:00 BP 138/70 06/17/21 12:00 Pulse Ox 99 06/17/21 12:00 BMI result Body Mass Index 24.4 Const: Other: obtunded, responds to painful stimuli Resp: Effort & Inspection: normal respiratory effort Cardio: Rate: regular rate Rhythm: regular rhythm GI: Palpation (GI): Soft to palpation Auscultation: normal bowel sounds Objective Data Active Medications Acetaminophen (Acetaminophen 325 Mg Tablet) 650 mg PO Q6H PRN PRN Reason: Pain, Mild (Pain Scale 1-3) Apixaban (Apixaban 5 Mg Tablet) 5 mg PO BID [facility] Aspirin (Aspirin 81 Mg Tab.Chew) 81 mg PO DAILY [facility] Atorvastatin Calcium (Atorvastatin Calcium 10 Mg Tablet) 10 mg PO BEDTIME [facility] Carvedilol (Carvedilol 3.125 Mg Tablet) 3.125 mg PO BID [facility]; Protocol Last Admin: 06/17/21 08:34 Dose: Not Given Documented by: JONATHAN Non-Admin Reason: NPO Dexamethasone Sodium Phosphate (Dexamethasone Sod Phosphate 4 Mg/Ml Vial) 6 mg IVPUSH DAILY [facility] Last Admin: 06/17/21 08:34 Dose: 6 mg Documented by: JONATHAN Dextrose (Dextrose 50 % 25 Gm/50 Ml Syringe) 25 gm IVPUSH Q15M PRN; Protocol PRN Reason: per Hypoglycemia Standing Ord. Glucose (Glucose Gel 15 Gm Gel..Gram.) 15 gm PO Q15M PRN; Protocol PRN Reason: per Hypoglycemia Standing Ord. Insulin Human Lispro (Insulin Lispro 100 Unit/Ml 3 Ml Vial) 0 unit SUBCUT QIDACHS [facility]; Protocol Last Admin: 06/17/21 08:35 Dose: Not Given Documented by: JONATHAN Non-Admin Reason: NPO Melatonin (Melatonin 3 Mg Tablet) 6 mg PO BEDTIME PRN PRN Reason: Insomnia Morphine Sulfate (Morphine Sulfate 4 Mg/Ml Cartridge) 1 mg IVPUSH Q4H PRN; Protocol PRN Reason: Pain, SOB Senna (Sennosides 8.6 Mg Tablet) 17.2 mg PO BEDTIME PRN PRN Reason: Constipation Senna (Sennosides 8.6 Mg Tablet) 17.2 mg PO BEDTIME [facility] Sodium Chloride (0.9 % Sodium Chloride Flush 3 Ml Syringe) 3 ml IVFLUSH QSHIFT [facility] Last Admin: 06/17/21 08:43 Dose: 3 ml Documented by: JONATHAN Tamsulosin HCl (Tamsulosin Hcl 0.4 Mg Capsule) 0.4 mg PO DAILY [facility] Last Admin: 06/17/21 08:34 Dose: Not Given Documented by: JONATHAN Non-Admin Reason: NPO Labs CBC & Chem 7: 06/17/21 07:11 06/17/21 07:11 Labs: Laboratory Results - last 24 hr 06/16/21 06/16/21 06/16/21 20:41 20:41 20:41 MCV 90.5 MCH 29.9 MCHC 33.0 RDW 13.7 Plt Count 166 MPV 9.0 L Immature Gran % (Auto) 0.4 Neut % (Auto) 75.3 H Lymph % (Auto) 13.0 L [place] % (Auto) 10.9 Eos % (Auto) 0.1 Baso % (Auto) 0.3 Lymph # (Auto) 1.4 [place] # (Auto) 1.2 Eos # (Auto) 0.0 Baso # (Auto) 0.0 Abs Immat Gran (auto) 0.04 H Absolute Neuts (auto) 8.2 Absolute Nucleated RBC 0.000 Nucleated RBC % (auto) 0.0 VBG pH VBG pCO2 VBG pO2 VBG HCO3 VBG O2 Saturation VBG Base Excess Anion Gap 13 Estim Creat Clear Calc 78.2 Estimated GFR > 60 POC Glucose Random Glucose 237 H Lactic Acid Lactic Acid F/U @ 2Hr Calcium 8.7 Magnesium Troponin I High Sens 34.0 B-Natriuretic Peptide Urine Color Urine Appearance Urine pH Ur Specific [place] Urine Protein Urine Glucose (UA) Urine Ketones Urine Blood Urine Nitrite Ur Leukocyte Esterase Urine RBC Urine WBC Ur Squamous Epith Cells Urine Bacteria Hyaline Casts Granular Casts Urine Mucus COVID-19 (JACQUI) COVID-19 Clin Com 06/16/21 06/16/21 06/16/21 21:44 21:44 21:44 MCV MCH MCHC RDW Plt Count MPV Immature Gran % (Auto) Neut % (Auto) Lymph % (Auto) [place] % (Auto) Eos % (Auto) Baso % (Auto) Lymph # (Auto) [place] # (Auto) Eos # (Auto) Baso # (Auto) Abs Immat Gran (auto) Absolute Neuts (auto) Absolute Nucleated RBC Nucleated RBC % (auto) VBG pH VBG pCO2 VBG pO2 VBG HCO3 VBG O2 Saturation VBG Base Excess Anion Gap Estim Creat Clear Calc Estimated GFR POC Glucose Random Glucose Lactic Acid 2.1 H* Lactic Acid F/U @ 2Hr Calcium Magnesium Troponin I High Sens B-Natriuretic Peptide 305 H Urine Color Urine Appearance Urine pH Ur Specific [place] Urine Protein Urine Glucose (UA) Urine Ketones Urine Blood Urine Nitrite Ur Leukocyte Esterase Urine RBC Urine WBC Ur Squamous Epith Cells Urine Bacteria Hyaline Casts Granular Casts Urine Mucus COVID-19 (JACQUI) Positive A COVID-19 rapt[employer] See Note 06/16/21 06/16/21 06/16/21 21:44 21:51 22:01 MCV MCH MCHC RDW Plt Count MPV Immature Gran % (Auto) Neut % (Auto) Lymph % (Auto) [place] % (Auto) Eos % (Auto) Baso % (Auto) Lymph # (Auto) [place] # (Auto) Eos # (Auto) Baso # (Auto) Abs Immat Gran (auto) Absolute Neuts (auto) Absolute Nucleated RBC Nucleated RBC % (auto) VBG pH 7.42 VBG pCO2 39 VBG pO2 115 VBG HCO3 25 VBG O2 Saturation 99.0 VBG Base Excess 1.4 Anion Gap Estim Creat Clear Calc Estimated GFR POC Glucose Random Glucose Lactic Acid Lactic Acid F/U @ 2Hr Calcium Magnesium 1.7 Troponin I High Sens B-Natriuretic Peptide Urine Color YELLOW Urine Appearance CLEAR Urine pH 5.5 Ur Specific [place] >= 1.030 H Urine Protein 1+ H Urine Glucose (UA) 100 H Urine Ketones NEG Urine Blood TRACE Urine Nitrite NEG Ur Leukocyte Esterase NEG Urine RBC 5-9 H Urine WBC 1-4 Ur Squamous Epith Cells 1+ Urine Bacteria 2+ Hyaline Casts 5-9 Granular Casts 0-2 Urine Mucus 2+ COVID-19 (JACQUI) COVID-19 Clin Com 06/17/21 06/17/21 06/17/21 03:21 07:11 07:11 MCV 91.0 MCH 29.3 MCHC 32.2 RDW 13.6 Plt Count 168 MPV 9.0 L Immature Gran % (Auto) 0.3 Neut % (Auto) 77.9 H Lymph % (Auto) 12.0 L [place] % (Auto) 9.6 Eos % (Auto) 0.0 Baso % (Auto) 0.2 Lymph # (Auto) 1.4 [place] # (Auto) 1.1 Eos # (Auto) 0.0 Baso # (Auto) 0.0 Abs Immat Gran (auto) 0.04 H Absolute Neuts (auto) 9.0 H Absolute Nucleated RBC 0.000 Nucleated RBC % (auto) 0.0 VBG pH VBG pCO2 VBG pO2 VBG HCO3 VBG O2 Saturation VBG Base Excess Anion Gap 13 Estim Creat Clear Calc 93.1 Estimated GFR > 60 POC Glucose Random Glucose 187 H Lactic Acid Lactic Acid F/U @ 2Hr 1.7 Calcium 8.4 Magnesium Troponin I High Sens B-Natriuretic Peptide Urine Color Urine Appearance Urine pH Ur Specific [place] Urine Protein Urine Glucose (UA) Urine Ketones Urine Blood Urine Nitrite Ur Leukocyte Esterase Urine RBC Urine WBC Ur Squamous Epith Cells Urine Bacteria Hyaline Casts Granular Casts Urine Mucus COVID-19 (JACQUI) COVID-19 Clin Com 06/17/21 13:09 MCV MCH MCHC RDW Plt Count MPV Immature Gran % (Auto) Neut % (Auto) Lymph % (Auto) [place] % (Auto) Eos % (Auto) Baso % (Auto) Lymph # (Auto) [place] # (Auto) Eos # (Auto) Baso # (Auto) Abs Immat Gran (auto) Absolute Neuts (auto) Absolute Nucleated RBC Nucleated RBC % (auto) VBG pH VBG pCO2 VBG pO2 VBG HCO3 VBG O2 Saturation VBG Base Excess Anion Gap Estim Creat Clear Calc Estimated GFR POC Glucose 194 H Random Glucose Lactic Acid Lactic Acid F/U @ 2Hr Calcium Magnesium Troponin I High Sens B-Natriuretic Peptide Urine Color Urine Appearance Urine pH Ur Specific [place] Urine Protein Urine Glucose (UA) Urine Ketones Urine Blood Urine Nitrite Ur Leukocyte Esterase Urine RBC Urine WBC Ur Squamous Epith Cells Urine Bacteria Hyaline Casts Granular Casts Urine Mucus COVID-19 (JACQUI) COVID-19 Clin Com Assessment and Plan (1) Acute respiratory disease due to COVID-19 virus: Status: Acute (2) Encephalopathy: Status: Acute Assessment and Plan: 85-year-old male with a past medical history of hypertension, hyperlipidemia, diabetes, CAD, CHF, AFib not on anticoagulation, halfway resident, prior hi story of COVID-19 vaccination; presented to the hospital with a chief complaint of shortness of breath/hypoxia found to have covid 19 and AMS. # Acute hypoxic respiratory failure - likely secondary to COVID-19 infection - was noted to be hypoxic in the 70s at halfway - CT chest showed no evidence of pulmonary embolism and also noted to have clear lungs.? - will continue Decadron - no antibiotics at this time - Infectious Disease consulted # encephalopathy - most likely secondary to COVID-19 as well as hypoxia - has CT showed nonspecific changes with no acute infarct or mass effect - will treat COVID as above - continue to monitor mental status - if patient continues to be altered consider MRI History of hypertension: resume home antihypertensives History of CHF:? Stable.? Patient received Lasix IV x1 in the ER. no evidence of CHF exacerbation- History of chronic AFib:? stable, Continue home metoprolol.? will continue eliquis dvt ppx: eliquis Quality Stroke Does the patient have a stroke diagnosis?: No VTE Prior VTE?: No VTE Risk Level:: Medical - moderate - high VTE Device Contraindication: Treatment Not Indicated VTE Drug Contraindication: N/A - Med Ordered
[2021-06-17] MEDS: Insulin Lispro 100 UNIT/ML 3 ML VIAL SUBCUT (14:04)
--- NOTE | 2021-06-17 14:37 | PC.NURSE ---
Pt received from main ER: Pt alert but unable to assess orientation as pt is non-verbal. Sinus arrythmia noted on monitor with type I heart block. Lungs dimished with mild exp wheeze. Pt remains on 3L N/C. Pt abd round, soft and non-tender. Ibrahim catheter noted and draining yellow, clear fluid.
--- NOTE | 2021-06-17 16:12 | MHC.CM.PN ---
PT IS A LTC RESIDENT OF THE [facility] CM CONTACTED PTS DAUGHTER, DEANNA ([phone]) VIA T/C AND REVIEWED PTS MEDICARE RIGHTS. DEANNA ASKS THAT THEY BE EMAILED TO HER AT [email or web address] EMAIL SENT CURRENT DC PLAN IS RETURN TO [facility] VIA BLS
--- NOTE | 2021-06-17 16:18 | P.CNID_ITS ---
History of Present Illness Data of Consult Service Date: 06/17/21 Requesting physician: Maryann Parker Primary Care Provider: Unknown Physician HPI Reason for consult: shortness of breath,COVID He presents with shortness of breath day of admission He has fatigue as well He is on 2 liters oxygen He has been vaccinated and had booster Review of Systems Verdana 4l Review of Systems: Yes Unobtainable due to mental Verdana 4d condition PMFSH Past Medical History Medical History (Updated 06/24/21 @ 00:02 by Mitul Singh) Acute respiratory disease due to COVID-19 virus Congestive heart failure Family History Family history: reviewed and not pertinent Social History Social History service: Yes Current occupational status: retired [employer] Allergies Allergy/AdvReac Type Severity Reaction Status Date / Time No Known Allergies Allergy Verified 06/16/21 20:44 Active Medications: Current Medications Acetaminophen (Acetaminophen 325 Mg Tablet) 650 mg PO Q6H PRN PRN Reason: Pain, Mild (Pain Scale 1-3) Apixaban (Apixaban 5 Mg Tablet) 5 mg PO BID [facility] Aspirin (Aspirin 81 Mg Tab.Chew) 81 mg PO DAILY [facility] Atorvastatin Calcium (Atorvastatin Calcium 10 Mg Tablet) 10 mg PO BEDTIME [facility] Carvedilol (Carvedilol 3.125 Mg Tablet) 3.125 mg PO BID [facility]; Protocol Last Admin: 06/17/21 08:34 Dose: Not Given Documented by: Dexamethasone Sodium Phosphate (Dexamethasone Sod Phosphate 4 Mg/Ml Vial) 6 mg IVPUSH DAILY [facility] Last Admin: 06/17/21 08:34 Dose: 6 mg Documented by: Dextrose (Dextrose 50 % 25 Gm/50 Ml Syringe) 25 gm IVPUSH Q15M PRN; Protocol PRN Reason: per Hypoglycemia Standing Ord. Glucose (Glucose Gel 15 Gm Gel..Gram.) 15 gm PO Q15M PRN; Protocol PRN Reason: per Hypoglycemia Standing Ord. Insulin Glargine (Insulin Glargine,Hum.Rec.Anlog 100 Unit/Ml 10 Ml Vial) 15 unit SUBCUT DAILY [facility] Insulin Human Lispro (Insulin Lispro 100 Unit/Ml 3 Ml Vial) 0 unit SUBCUT QIDACHS [facility]; Protocol Last Admin: 06/17/21 14:04 Dose: 2 unit Documented by: Melatonin (Melatonin 3 Mg Tablet) 6 mg PO BEDTIME PRN PRN Reason: Insomnia Morphine Sulfate (Morphine Sulfate 4 Mg/Ml Cartridge) 1 mg IVPUSH Q4H PRN; Protocol PRN Reason: Pain, SOB Senna (Sennosides 8.6 Mg Tablet) 17.2 mg PO BEDTIME PRN PRN Reason: Constipation Senna (Sennosides 8.6 Mg Tablet) 17.2 mg PO BEDTIME [facility] Sodium Chloride (0.9 % Sodium Chloride Flush 3 Ml Syringe) 3 ml IVFLUSH QSHIFT [facility] Last Admin: 06/17/21 14:42 Dose: Not Given Documented by: Tamsulosin HCl (Tamsulosin Hcl 0.4 Mg Capsule) 0.4 mg PO DAILY [facility] Last Admin: 06/17/21 08:34 Dose: Not Given Documented by: Home Medications Medication Instructions Recorded Confirmed Last Taken Type apixaban 5 mg 5 mg PO BID 06/17/21 06/17/21 Unknown History tablet aspirin 81 mg 81 mg PO DAILY 06/17/21 06/17/21 Unknown History chewable tablet carvedilol 6.25 6.25 mg PO BID 06/17/21 06/17/21 Unknown History mg tablet cholecalciferol 50 mcg PO DAILY 06/17/21 06/17/21 Unknown History (vitamin D3) 50 mcg (2,000 unit) tablet insulin glargine 15 unit SUBCUT 06/17/21 06/17/21 Unknown History 100 unit/mL DAILY subcutaneous solution lisinopril 2.5 mg 2.5 mg PO DAILY 06/17/21 06/17/21 Unknown History tablet metformin 1,000 1,000 mg PO 06/17/21 06/17/21 Unknown History mg tablet DAILY metformin 500 mg 500 mg BEDTIME 06/17/21 06/17/21 Unknown History tablet sennosides 8.6 mg 17.2 mg PO 06/17/21 06/17/21 Unknown History tablet (senna) BEDTIME simvastatin 20 mg 20 mg PO BEDTIME 06/17/21 06/17/21 Unknown History tablet tamsulosin 0.4 mg 0.4 mg PO DAILY 06/17/21 06/17/21 Unknown History capsule Physical Exam Verdana 4l Vital Signs: Verdana 4d Verdana 4d Vital Signs: Verdana 4d Verdana 4Bd Last Vital Signs Verdana 4d Correction Officer Head New 4d Correction Officer Head New 4d Temp 98.9 F 06/17/21 08:30 Correction Officer Head New 4d Pulse 76 06/17/21 14:36 Correction Officer Head New 4d Resp 24 H 06/17/21 14:36 BP 145/67 H 06/17/21 14:36 Pulse Ox 100 06/17/21 14:36 BMI result Body Mass Index 24.4 Const: General: cooperative Eyes: General: appearance normal, both eyes and all related structures Resp: Effort & Inspection: normal respiratory effort Cardio: Rate: regular rate Rhythm: regular rhythm GI: Palpation (GI): nontender Results Labs CBC & Chem 7: 06/18/21 11:08 06/17/21 07:11 Labs: Short CBC 06/16/21 06/17/21 Range/Units 20:41 07:11 WBC 10.9 H 11.5 H (4.8-10.8) X10*3/uL Hgb 13.6 L 13.4 L (14.0-18.0) g/dl Hct 41.2 L 41.6 L (42.0-52.0) % Plt Count 166 168 (160-400) X10*3/uL BMP 06/16/21 06/17/21 20:41 07:11 Sodium 139 138 Potassium 4.9 4.0 Chloride 104 102 Carbon Dioxide 27 27 BUN 16 15 Creatinine 0.69 0.58 Calcium 8.7 8.4 Urine 06/16/21 Range/Units 22:01 Urine Color YELLOW Urine Appearance CLEAR Urine pH 5.5 (5.0-8.0) Ur Specific [place] >= 1.030 H (1.005-1.025) Urine Protein 1+ H (NEG-TRACE) MG/DL Urine Glucose (UA) 100 H (NEG) MG/DL Assessment and Plan (1) Encephalopathy: Status: Resolved (2) Acute respiratory disease due to COVID-19 virus: COVID with low level oxygen dependency He has symptoms two days He has been vaccinated and boosted Plan Would give Remdesivir Dexamethasone Oxygen as needed
--- NOTE | 2021-06-17 16:18 | W.PM.IDCN ---
History of Present Illness Data of Consult Service Date: 06/17/21 Requesting physician: Maraynn Parker Primary Care Provider: Unknown Physician HPI Reason for consult: shortness of breath,COVID He presents with shortness of breath day of admission He has fatigue as well He is on 2 liters oxygen He has been vaccinated and had booster Review of Systems Review of Systems: Yes Unobtainable due to mental condition [facility] Past Medical History Medical History (Updated 06/24/21 @ 00:02 by Mitul Singh) Acute respiratory disease due to COVID-19 virus Congestive heart failure Family History Family history: reviewed and not pertinent Social History Social History service: Yes Current occupational status: retired [employer] Allergies Allergy/AdvReac Type Severity Reaction Status Date / Time No Known Allergies Allergy Verified 06/16/21 20:44 Active Medications: Current Medications Acetaminophen (Acetaminophen 325 Mg Tablet) 650 mg PO Q6H PRN PRN Reason: Pain, Mild (Pain Scale 1-3) Apixaban (Apixaban 5 Mg Tablet) 5 mg PO BID [facility] Aspirin (Aspirin 81 Mg Tab.Chew) 81 mg PO DAILY [facility] Atorvastatin Calcium (Atorvastatin Calcium 10 Mg Tablet) 10 mg PO BEDTIME [facility] Carvedilol (Carvedilol 3.125 Mg Tablet) 3.125 mg PO BID [facility]; Protocol Last Admin: 06/17/21 08:34 Dose: Not Given Documented by: Dexamethasone Sodium Phosphate (Dexamethasone Sod Phosphate 4 Mg/Ml Vial) 6 mg IVPUSH DAILY [facility] Last Admin: 06/17/21 08:34 Dose: 6 mg Documented by: Dextrose (Dextrose 50 % 25 Gm/50 Ml Syringe) 25 gm IVPUSH Q15M PRN; Protocol PRN Reason: per Hypoglycemia Standing Ord. Glucose (Glucose Gel 15 Gm Gel..Gram.) 15 gm PO Q15M PRN; Protocol PRN Reason: per Hypoglycemia Standing Ord. Insulin Glargine (Insulin Glargine,Hum.Rec.Anlog 100 Unit/Ml 10 Ml Vial) 15 unit SUBCUT DAILY [facility] Insulin Human Lispro (Insulin Lispro 100 Unit/Ml 3 Ml Vial) 0 unit SUBCUT QIDACHS [facility]; Protocol Last Admin: 06/17/21 14:04 Dose: 2 unit Documented by: Melatonin (Melatonin 3 Mg Tablet) 6 mg PO BEDTIME PRN PRN Reason: Insomnia Morphine Sulfate (Morphine Sulfate 4 Mg/Ml Cartridge) 1 mg IVPUSH Q4H PRN; Protocol PRN Reason: Pain, SOB Senna (Sennosides 8.6 Mg Tablet) 17.2 mg PO BEDTIME PRN PRN Reason: Constipation Senna (Sennosides 8.6 Mg Tablet) 17.2 mg PO BEDTIME [facility] Sodium Chloride (0.9 % Sodium Chloride Flush 3 Ml Syringe) 3 ml IVFLUSH QSHIFT [facility] Last Admin: 06/17/21 14:42 Dose: Not Given Documented by: Tamsulosin HCl (Tamsulosin Hcl 0.4 Mg Capsule) 0.4 mg PO DAILY [facility] Last Admin: 06/17/21 08:34 Dose: Not Given Documented by: Home Medications Medication Instructions Recorded Confirmed Last Taken Type apixaban 5 mg tablet 5 mg PO BID 06/17/21 06/17/21 Unknown History aspirin 81 mg chewable tablet 81 mg PO DAILY 06/17/21 06/17/21 Unknown History carvedilol 6.25 mg tablet 6.25 mg PO BID 06/17/21 06/17/21 Unknown History cholecalciferol (vitamin D3) 50 50 mcg PO DAILY 06/17/21 06/17/21 Unknown History mcg (2,000 unit) tablet insulin glargine 100 unit/mL 15 unit SUBCUT DAILY 06/17/21 06/17/21 Unknown History subcutaneous solution lisinopril 2.5 mg tablet 2.5 mg PO DAILY 06/17/21 06/17/21 Unknown History metformin 1,000 mg tablet 1,000 mg PO DAILY 06/17/21 06/17/21 Unknown History metformin 500 mg tablet 500 mg BEDTIME 06/17/21 06/17/21 Unknown History sennosides 8.6 mg tablet (senna) 17.2 mg PO BEDTIME 06/17/21 06/17/21 Unknown History simvastatin 20 mg tablet 20 mg PO BEDTIME 06/17/21 06/17/21 Unknown History tamsulosin 0.4 mg capsule 0.4 mg PO DAILY 06/17/21 06/17/21 Unknown History Physical Exam Vital Signs: Vital Signs: Last Vital Signs Temp 98.9 F 06/17/21 08:30 Pulse 76 06/17/21 14:36 Resp 24 H 06/17/21 14:36 BP 145/67 H 06/17/21 14:36 Pulse Ox 100 06/17/21 14:36 BMI result Body Mass Index 24.4 Const: General: cooperative Eyes: General: appearance normal, both eyes and all related structures Resp: Effort & Inspection: normal respiratory effort Cardio: Rate: regular rate Rhythm: regular rhythm GI: Palpation (GI): nontender Results Labs CBC & Chem 7: 06/18/21 11:08 06/17/21 07:11 Labs: Short CBC 06/16/21 06/17/21 Range/Units 20:41 07:11 WBC 10.9 H 11.5 H (4.8-10.8) X10*3/uL Hgb 13.6 L 13.4 L (14.0-18.0) g/dl Hct 41.2 L 41.6 L (42.0-52.0) % Plt Count 166 168 (160-400) X10*3/uL BMP 06/16/21 06/17/21 20:41 07:11 Sodium 139 138 Potassium 4.9 4.0 Chloride 104 102 Carbon Dioxide 27 27 BUN 16 15 Creatinine 0.69 0.58 Calcium 8.7 8.4 Urine 06/16/21 Range/Units 22:01 Urine Color YELLOW Urine Appearance CLEAR Urine pH 5.5 (5.0-8.0) Ur Specific [place] >= 1.030 H (1.005-1.025) Urine Protein 1+ H (NEG-TRACE) MG/DL Urine Glucose (UA) 100 H (NEG) MG/DL Assessment and Plan (1) Encephalopathy: Status: Resolved (2) Acute respiratory disease due to COVID-19 virus: COVID with low level oxygen dependency He has symptoms two days He has been vaccinated and boosted Plan Would give Remdesivir Dexamethasone Oxygen as needed
[2021-06-17 18:11] LABS: Glucose, Whole Blood 202 mg/dL (60-115)
--- NOTE | 2021-06-17 20:00 | PC.NURSE ---
Assumed care of pt Pt resting on stretcher with eyes closed Arousable by verbal and tactile stimuli Pt tracks with eyes but does not follow commands Non-verbal Will continue to monitor
[2021-06-17] MEDS: Remdesivir 200 MG in 0.9 % Sodium Chloride 210 ML 105 MG IV (20:40)
[2021-06-17 21:56] LABS: Glucose, Whole Blood 197 mg/dL (60-115)
[2021-06-18 00:13] VITALS: PULSE 56; RESP 17; O2SAT 100
[2021-06-18 05:30] VITALS: BP 149/48; PULSE 67; RESP 18; TEMP 37; O2SAT 97
--- NOTE | 2021-06-18 05:31 | PC.NURSE ---
Pt turned to RT side Pt tolerated well Pt arouses to verbal and tactile stimuli Pt tracks with eyes Pt non-verbal 95% O2 on 3L NC Will continue to monitor
[2021-06-18 07:32] LABS: Glucose, Whole Blood 180 mg/dL (60-115)
[2021-06-18 09:25] VITALS: BP 131/62; PULSE 62; RESP 17; O2SAT 100
[2021-06-18] MEDS: dexAMETHasone sod phosphate 4 MG/ML VIAL 6 MG IVPUSH (09:56)
[2021-06-18] MEDS: 0.9 % Sodium Chloride Flush 3 ML SYRINGE IVFLUSH ×2 (09:57→16:32)
[2021-06-18 11:16] LABS: MANUAL DIFF FLAG NO
[2021-06-18 11:20] LABS: Basophils Percent Auto 0.1 % (0-2); Hematocrit 42.2 % (42.0-52.0); Hemoglobin 13.7 g/dl (14.0-18.0); Imm Gran Abs Auto 0.03 X10*3/uL (0.00-0.03); Imm Gran Pct Auto 0.4 % (0.0-0.4); Lymphocytes Absolute Auto 1.7 X10*3/uL (1.2-4.9); Mean Corpuscular HGB Conc 32.5 g/dl (31.0-36.0); Mean Corpuscular Hemoglobin 29.9 pg (27.0-33.0); Mean Corpuscular Volume 92.1 fL (80.0-98.0); Mean Platelet Volume 8.8 fL (9.4-12.4); Monocytes Absolute Auto 0.7 X10*3/uL (0.1-1.2); Monocytes Percent Auto 10.2 % (2-11); Neutrophils Absolute Auto 4.7 x10*3/uL (2.0-8.3); Neutrophils Percent Auto 66.3 % (45-73); Platelet Count 176 X10*3/uL (160-400); Red Blood Count 4.58 X10*6/uL (4.60-5.80); Red Cell Distribution Width 13.5 % (11.0-16.0); White Blood Count 7.2 X10*3/uL (4.8-10.8)
--- NOTE | 2021-06-18 13:37 | P.PNIM_ITS ---
Subjective Subjective Date of Service: 06/18/21 Interval History: pt is sleeping but woke up on calling his name. he is more alert, and awake. difficult to asses orientation as pt not answering questions. spoke to his daughter, who reported that pt is almost deaf and only communicates if you are literally in his ear or writing on a white board. he uses few words but is not conversive. he does have baseline dementia. Review of Systems Review of Systems: Yes Unobtainable due to mental condition Physical Exam Vital Signs: Vital Signs: Last Vital Signs Temp 98.6 F 06/18/21 05:30 Pulse 62 06/18/21 09:25 Resp 17 06/18/21 09:25 BP 131/62 06/18/21 09:25 Pulse Ox 100 06/18/21 09:25 BMI result Body Mass Index 24.4 Const: Other: wakes up and remains alert, General: cooperative and no acute distress HENMT: Other: deaf Resp: Effort & Inspection: normal respiratory effort Cardio: Rate: regular rate Rhythm: regular rhythm GI: Palpation (GI): Soft to palpation Auscultation: normal bowel sounds Neuro: Other: unable to assess neurological function. when ask to squeeze hand- appears to have weak spent grain dryer. pt appears to attempt to talk but unable? Extrem: General: Yes normal to inspection and Yes no pedal edema Objective Data Active Medications Acetaminophen (Acetaminophen 325 Mg Tablet) 650 mg PO Q6H PRN PRN Reason: Pain, Mild (Pain Scale 1-3) Apixaban (Apixaban 5 Mg Tablet) 5 mg PO BID [facility] Aspirin (Aspirin 81 Mg Tab.Chew) 81 mg PO DAILY [facility] Atorvastatin Calcium (Atorvastatin Calcium 10 Mg Tablet) 10 mg PO BEDTIME [facility] Last Admin: 06/17/21 21:53 Dose: Not Given Documented by: NIC Non-Admin Reason: NPO Carvedilol (Carvedilol 3.125 Mg Tablet) 3.125 mg PO BID [facility]; Protocol Last Admin: 06/18/21 09:51 Dose: Not Given Documented by: DANIEL Non-Admin Reason: NPO Dexamethasone Sodium Phosphate (Dexamethasone Sod Phosphate 4 Mg/Ml Vial) 6 mg IVPUSH DAILY [facility] Last Admin: 06/18/21 09:56 Dose: 6 mg Documented by: DANIEL Dextrose (Dextrose 50 % 25 Gm/50 Ml Syringe) 25 gm IVPUSH Q15M PRN; Protocol PRN Reason: per Hypoglycemia Standing Ord. Glucose (Glucose Gel 15 Gm Gel..Gram.) 15 gm PO Q15M PRN; Protocol PRN Reason: per Hypoglycemia Standing Ord. Remdesivir 100 mg/ Sodium (Chloride) 230 mls @ 115 mls/hr IV Q24H [facility] Stop: 06/21/21 21:59 Insulin Glargine (Insulin Glargine,Hum.Rec.Anlog 100 Unit/Ml 10 Ml Vial) 15 unit SUBCUT DAILY [facility] Last Admin: 06/18/21 09:51 Dose: Not Given Documented by: DANIEL Non-Admin Reason: NPO Insulin Human Lispro (Insulin Lispro 100 Unit/Ml 3 Ml Vial) 0 unit SUBCUT QIDACHS [facility]; Protocol Last Admin: 06/18/21 11:58 Dose: Not Given Documented by: DANIEL Non-Admin Reason: NPO Melatonin (Melatonin 3 Mg Tablet) 6 mg PO BEDTIME PRN PRN Reason: Insomnia Morphine Sulfate (Morphine Sulfate 4 Mg/Ml Cartridge) 1 mg IVPUSH Q4H PRN; Protocol PRN Reason: Pain, SOB Senna (Sennosides 8.6 Mg Tablet) 17.2 mg PO BEDTIME PRN PRN Reason: Constipation Senna (Sennosides 8.6 Mg Tablet) 17.2 mg PO BEDTIME [facility] Last Admin: 06/17/21 21:53 Dose: Not Given Documented by: NIC Non-Admin Reason: NPO Sodium Chloride (0.9 % Sodium Chloride Flush 3 Ml Syringe) 3 ml IVFLUSH QSHIFT [facility] Last Admin: 06/18/21 09:57 Dose: 3 ml Documented by: DANIEL Tamsulosin HCl (Tamsulosin Hcl 0.4 Mg Capsule) 0.4 mg PO DAILY [facility] Last Admin: 06/18/21 09:51 Dose: Not Given Documented by: DANIEL Non-Admin Reason: NPO Labs CBC & Chem 7: 06/18/21 11:08 06/17/21 07:11 Labs: Laboratory Results - last 24 hr 06/17/21 06/17/21 06/18/21 18:01 21:50 07:21 MCV MCH MCHC RDW Plt Count MPV Immature Gran % (Auto) Neut % (Auto) Lymph % (Auto) [place] % (Auto) Eos % (Auto) Baso % (Auto) Lymph # (Auto) [place] # (Auto) Eos # (Auto) Baso # (Auto) Abs Immat Gran (auto) Absolute Neuts (auto) Absolute Nucleated RBC Nucleated RBC % (auto) POC Glucose 202 H 197 H 180 H 06/18/21 11:08 MCV 92.1 MCH 29.9 MCHC 32.5 RDW 13.5 Plt Count 176 MPV 8.8 L Immature Gran % (Auto) 0.4 Neut % (Auto) 66.3 Lymph % (Auto) 23.0 [place] % (Auto) 10.2 Eos % (Auto) 0.0 Baso % (Auto) 0.1 Lymph # (Auto) 1.7 [place] # (Auto) 0.7 Eos # (Auto) 0.0 Baso # (Auto) 0.0 Abs Immat Gran (auto) 0.03 Absolute Neuts (auto) 4.7 Absolute Nucleated RBC 0.000 Nucleated RBC % (auto) 0.0 POC Glucose Microbiology Microbiology Results: Microbiology 06/16/21 21:44 Blood Culture - Preliminary Blood - Venous No growth after 24 hours. 06/16/21 21:44 Blood Culture - Preliminary Blood - Venous No growth after 24 hours. Assessment and Plan (1) Encephalopathy: Status: Acute (2) Acute respiratory disease due to COVID-19 virus: Status: Acute Assessment and Plan: 85-year-old male with a past medical history of hypertension, hyperlipidemia, diabetes, CAD, CHF, AFib not on anticoagulation, care home resident, prior history of COVID-19 vaccination; presented to the hospital with a chief complaint of shortness of breath/hypoxia found to have covid 19 and AMS. # Acute hypoxic respiratory failure - likely secondary to COVID-19 infection - was noted to be hypoxic in the 70s at care home - CT chest showed no evidence of pulmonary embolism and also noted to have clear lungs.? - Decadron day 2 - no antibiotics at this time - seen by ID- started on remdesivir d1 # encephalopathy - apears to be resolving - pt is awake, alert, unable to assess neurological fx - spoke to daughter who states pt is deaf and may be contributing to him not being able to cooperate with exam - has CT showed nonspecific changes with no acute infarct or mass effect - given his inability to talk and weak hand spent grain dryer witll obtain MRI of head - continue to monitor mental status History of hypertension: resume home antihypertensives History of CHF:? Stable.? Patient received Lasix IV x1 in the ER. no evidence of CHF exacerbation- History of chronic AFib:? stable, Continue home metoprolol.? will continue eliquis dvt ppx: eliquis Quality Stroke Does the patient have a stroke diagnosis?: No VTE Prior VTE?: No VTE Risk Level:: Medical - moderate - high VTE Device Contraindication: Treatment Not Indicated VTE Drug Contraindication: N/A - Med Ordered
[2021-06-18 16:00] VITALS: BP 146/72; PULSE 61; RESP 16; TEMP 36.6; O2SAT 99
[2021-06-18 18:04] LABS: Glucose, Whole Blood 193 mg/dL (60-115)
--- NOTE | 2021-06-18 20:07 | PC.NURSE ---
Assumed care of pt at 1900. Pt resting in bed, awake, not responding to questions or following commands. Ibrahim intact and draining effectively. Attached to cardiac monitor technician and pulse ox. 3L O2 via NC, respirations non-labored. Awaiting inpatient bed assignment
[2021-06-18] MEDS: Remdesivir 100 MG in 0.9 % Sodium Chloride 230 ML 115 MG IV (20:43)
[2021-06-18 20:46] VITALS: BP 149/48; PULSE 93; RESP 19; O2SAT 98
[2021-06-19 00:22] VITALS: BP 151/69; PULSE 61; RESP 17; O2SAT 99
[2021-06-19 06:30] VITALS: BP 148/70; PULSE 78; RESP 14; TEMP 36.6; O2SAT 99
[2021-06-19 07:03] VITALS: BP 168/69; PULSE 61; RESP 18; O2SAT 97
[2021-06-19 08:01] LABS: Glucose, Whole Blood 201 mg/dL (60-115)
[2021-06-19 08:01] LABS: Glucose, Whole Blood 174 mg/dL (60-115)
[2021-06-19 08:40] VITALS: BP 175/70; PULSE 62; RESP 12; TEMP 36.3; O2SAT 96
[2021-06-19] MEDS: Insulin Glargine,Hum.rec.anlog 100 UNIT/ML 10 ML VIAL 15 UNIT SUBCUT (09:26)
[2021-06-19] MEDS: carvediloL 3.125 MG TABLET PO (09:27)
[2021-06-19] MEDS: Insulin Lispro 100 UNIT/ML 3 ML VIAL SUBCUT (09:27)
[2021-06-19] MEDS: dexAMETHasone sod phosphate 4 MG/ML VIAL 6 MG IVPUSH (09:28)
[2021-06-19] MEDS: Tamsulosin HCL 0.4 MG CAPSULE PO (09:28)
[2021-06-19] MEDS: 0.9 % Sodium Chloride Flush 3 ML SYRINGE IVFLUSH (09:29)
--- NOTE | 2021-06-19 10:06 | P.DS_ITS ---
DS: Providers Provider Date of Service: 06/19/21 Date of admission: 06/16/21 23:04 Primary care physician: Unknown Physician Consults: 06/16/21 23:04 Consult to Infectious Diseases Routine Consulting Provider: Bella Woods Reason for consultation: covid positive DS: Diagnosis Discharge Diagnosis (1) Encephalopathy: Status: Acute (2) Acute respiratory disease due to COVID-19 virus: Status: Acute DS: Summary Hospital Course Hospital Course: This is an 85-year-old male with past medical history of hypertension, hyperlipidemia, diabetes, CAD, CHF, AFib not on anticoagulation, [facility] with [facility]. At the [facility] patient was found to be 73% on 2 L of supplemental oxygen. Patient was found to have encephalopathy possibly secondary to hypoxia which resolved completely. 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 Patient's hypoxia also resolved and is now on room air satting 95%. Patient was treated with 2 days of remdesivir as well as IV dexamethasone. Patient is being discharged back to [facility] with Solu-Medrol x7 days. Family was updated. Patient is now back to baseline. 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 Attention stable, encephalopathy resolved, hypoxia resolved, discharged to [facility]. Time Spent with Patient Time attestation: Total time spent providing and/or coordinating discharge services: Discharge coordination time: Greater than 30 minutes Quality: Stroke Does the patient have a stroke diagnosis?: No Physical Exam Vital Signs: Vital Signs: Last Vital Signs Temp 97.4 F 06/19/21 08:40 Pulse 62 06/19/21 08:40 Resp 12 06/19/21 08:40 BP 175/70 H 06/19/21 08:40 Pulse Ox 96 06/19/21 08:40 BMI result Body Mass Index 24.4 Const: General: cooperative and no acute distress Resp: Effort & Inspection: normal respiratory effort Auscultation: clear to auscultation bilaterally Cardio: Rate: regular rate Rhythm: regular rhythm GI: Palpation (GI): Soft to palpation Auscultation: normal bowel sounds Extrem: General: Yes normal to inspection and Yes no pedal edema DS: Data Data Completed and Pending Labs on day of discharge: Laboratory Results - last 24 hr 01/06/18/21 06/18/21 11:08 17:57 21:30 WBC 7.2 RBC 4.58 L Hgb 13.7 L Hct 42.2 MCV 92.1 MCH 29.9 MCHC 32.5 RDW 13.5 Plt Count 176 MPV 8.8 L Immature Gran % (Auto) 0.4 Neut % (Auto) 66.3 Lymph % (Auto) 23.0 [place] % (Auto) 10.2 Eos % (Auto) 0.0 Baso % (Auto) 0.1 Lymph # (Auto) 1.7 [place] # (Auto) 0.7 Eos # (Auto) 0.0 Baso # (Auto) 0.0 Abs Immat Gran (auto) 0.03 Absolute Neuts (auto) 4.7 Absolute Nucleated RBC 0.000 Nucleated RBC % (auto) 0.0 POC Glucose 193 H 201 H 06/19/21 07:28 WBC RBC Hgb Hct MCV MCH MCHC RDW Plt Count MPV Immature Gran % (Auto) Neut % (Auto) Lymph % (Auto) [place] % (Auto) Eos % (Auto) Baso % (Auto) Lymph # (Auto) [place] # (Auto) Eos # (Auto) Baso # (Auto) Abs Immat Gran (auto) Absolute Neuts (auto) Absolute Nucleated RBC Nucleated RBC % (auto) POC Glucose 174 H Preliminary micro results at discharge 06/16/21 21:44 Blood Culture - Preliminary Blood - Venous No growth after 48 hours. 06/16/21 21:44 Blood Culture - Preliminary Blood - Venous No growth after 48 hours. Discharge Plan Discharge Patient Disposition: [facility] Discharge Diagnosis: Hypoxic resp failure 2/2 COVID 19 Referrals: Physician,Unknown J [Primary Care Provider] - 1 Week Discharge Medications: New dexamethasone 6 mg tablet 6 mg PO DAILY Qty: 7 RF: 0 Continued tamsulosin 0.4 mg Capsule 0.4 mg PO DAILY RF: 0 apixaban 5 mg Tablet 5 mg PO BID RF: 0 aspirin 81 mg Tablet,Chewable 81 mg PO DAILY RF: 0 carvedilol 6.25 mg Tablet 6.25 mg PO BID RF: 0 cholecalciferol (vitamin D3) 50 mcg (2,000 unit) Tablet 50 mcg PO DAILY RF: 0 lisinopril 2.5 mg Tablet 2.5 mg PO DAILY RF: 0 simvastatin 20 mg Tablet 20 mg PO BEDTIME RF: 0 sennosides [senna] 8.6 mg Tablet 17.2 mg PO BEDTIME RF: 0 metformin 500 mg Tablet 500 mg BEDTIME RF: 0 metformin 1,000 mg Tablet 1,000 mg PO DAILY RF: 0 insulin glargine 100 unit/mL Solution 15 unit SUBCUT DAILY RF: 0 Discharge Orders: Discharge Order (Routine); Ordered 06/19/21 Ordered By: Maryann Parker Diet: diabetic diet Activity on Discharge: As tolerated Stand Alone Forms: Patient Portal Discharge page Care Plan Goals: You were admitted to the hospital for treatment of low oxygen due to covid 19. You were treated with dexamethasone and Remdesivir and have improved significantly. you are now have resolution of the hypoxia. [facility] 7 more days Health Concerns: hypoxia Plan of Treatment: continue dexamethasone for more 7 days Assessment: see above
--- NOTE | 2021-06-19 11:09 | PC.NURSE ---
telephone report given to yovany at [facility]
[2021-06-19 11:22] VITALS: BP 146/59; PULSE 63; RESP 16; TEMP 36.4; O2SAT 95
--- NOTE | 2021-06-19 11:50 | MHC.CM.PN ---
PT WILL DC BACK TO THE [facility] TODAY VIA BLS CM CALLED THE SLUDGE MILL OPERATOR AT [facility] WHO REPORTED THEY HAD ALREADY BEEN ALERTED BY PTS FLOOR NURSE THAT HE WOULD BE RETURNING ONCE AN AMBULANCE WAS AVAILABLE SHE ALSO REPORTED THE NURSE HAD FAXED THE DC SUMMARY TO THEM CM WILL ENSURE FAMILY HAS BEEN NOTIFIED OF DC
== END 2021-06-19 15:37 | disposition skilled nursing facility (03) | DRG 177 ==
LOC: HO.ED 23:54 → HO.EDOVER 06-17 06:20
PROVIDERS: Admitting Provider Hospitalist; Emergency Provider Internal Medicine; Visit Provider Internal Medicine
DX: U07.1 COVID-19 (principal); J96.01 Acute respiratory failure with hypoxia; G93.49 Other encephalopathy; I48.20 Chronic atrial fibrillation, unspecified; F03.90 Unspecified dementia, unspecified severity, without behavioral disturbance, psychotic disturbance, mood disturbance, and anxiety; E78.5 Hyperlipidemia, unspecified; I11.0 Hypertensive heart disease with heart failure; I50.9 Heart failure, unspecified; I25.10 Atherosclerotic heart disease of native coronary artery without angina pectoris; Z79.4 Long term (current) use of insulin; Z79.84 Long term (current) use of oral hypoglycemic drugs; Z79.01 Long term (current) use of anticoagulants; Z79.899 Other long term (current) drug therapy; Z66 Do not resuscitate
CPT/HCPCS: 36415; 70450; 70551; 71045; 71275; 74018; 80048; 80053; 81001; 82803; 82947; 83605; 83735; 83880; 84484; 85025; 87040; 87635; 93005; 96365; 96375; 99285; 99291; J0248; J0696; J1100; J1940; Q9967

== ENCOUNTER 2021-11-07 05:42 | Outpatient (REF) | payer MEDICARE, SELFPAY ==
[2021-11-07 07:48] LABS: MANUAL DIFF FLAG NO
[2021-11-07 07:55] LABS: Basophils Percent Auto 0.5 % (0-2); Eosinophils Absolute Auto 0.4 X10*3/uL (0.0-0.4); Eosinophils Percent Auto 4.9 % (0-4); Hematocrit 35.6 % (42.0-52.0); Hemoglobin 11.2 g/dl (14.0-18.0); Imm Gran Abs Auto 0.01 X10*3/uL (0.00-0.03); Imm Gran Pct Auto 0.1 % (0.0-0.4); Lymphocytes Absolute Auto 2.6 X10*3/uL (1.2-4.9); Lymphocytes Percent Auto 34.8 % (20-40); Mean Corpuscular HGB Conc 31.5 g/dl (31.0-36.0); Mean Corpuscular Hemoglobin 27.7 pg (27.0-33.0); Mean Corpuscular Volume 88.1 fL (80.0-98.0); Mean Platelet Volume 9.3 fL (9.4-12.4); Monocytes Absolute Auto 0.9 X10*3/uL (0.1-1.2); Monocytes Percent Auto 12.7 % (2-11); Neutrophils Absolute Auto 3.5 x10*3/uL (2.0-8.3); Platelet Count 189 X10*3/uL (160-400); Red Blood Count 4.04 X10*6/uL (4.60-5.80); Red Cell Distribution Width 13.2 % (11.0-16.0); White Blood Count 7.4 X10*3/uL (4.8-10.8)
[2021-11-07 08:13] LABS: Alanine Aminotransferase 7 U/L (0-40); Albumin Level 3.2 g/dL (3.5-5.0); Alkaline Phosphatase 48 U/L (39-117); Anion Gap 10 (12-20); Aspartate Amino Transferase 10 U/L (5-37); Bilirubin Total 0.5 mg/dL (0.0-1.0); Blood Urea Nitrogen 12 mg/dL (9-16); Calcium 8.4 mg/dL (8.4-10.2); Carbon Dioxide 29 mmol/L (22-29); Chloride 102 mmol/L (96-108); Estimated Glomerular Filt Rate > 60; Glucose Fasting 180 mg/dL (60-99); Potassium 4.3 mmol/L (3.3-5.1); Sodium 137 mmol/L (135-145); Total Protein 5.2 g/dL (6.5-8.0)
[2021-11-07 08:32] LABS: Estimated Average Glucose 197 mg/dL; Hemoglobin A1c % 8.5 %
== END 2021-11-07 05:43 | disposition home or self-care (01) ==
LOC: HO.HSH3E 05:42
PROVIDERS: Visit Provider Internal Medicine Medical Oncology
DX: E11.9 Type 2 diabetes mellitus without complications (principal)
CPT/HCPCS: 36415; 80053; 83036; 85025

== ENCOUNTER 2022-07-10 06:23 | Outpatient (REF) | payer MEDICARE, SELFPAY ==
[2022-07-10 06:31] LABS: MANUAL DIFF FLAG NO
[2022-07-10 06:49] LABS: Basophils Percent Auto 0.5 % (0-2); Eosinophils Absolute Auto 0.4 X10*3/uL (0.0-0.4); Hematocrit 38.4 % (42.0-52.0); Hemoglobin 12.4 g/dl (14.0-18.0); Imm Gran Abs Auto 0.03 X10*3/uL (0.00-0.03); Imm Gran Pct Auto 0.3 % (0.0-0.4); Lymphocytes Absolute Auto 2.7 X10*3/uL (1.2-4.9); Lymphocytes Percent Auto 31.2 % (20-40); Mean Corpuscular HGB Conc 32.3 g/dl (31.0-36.0); Mean Corpuscular Hemoglobin 28.2 pg (27.0-33.0); Mean Corpuscular Volume 87.5 fL (80.0-98.0); Mean Platelet Volume 9.4 fL (9.4-12.4); Monocytes Absolute Auto 0.9 X10*3/uL (0.1-1.2); Monocytes Percent Auto 10.8 % (2-11); Neutrophils Absolute Auto 4.6 x10*3/uL (2.0-8.3); Neutrophils Percent Auto 52.2 % (45-73); Platelet Count 203 X10*3/uL (160-400); Red Blood Count 4.39 X10*6/uL (4.60-5.80); Red Cell Distribution Width 15.2 % (11.0-16.0); White Blood Count 8.7 X10*3/uL (4.8-10.8)
[2022-07-10 07:10] LABS: Anion Gap 12 (12-20); Blood Urea Nitrogen 19 mg/dL (9-16); Carbon Dioxide 28 mmol/L (22-29); Chloride 103 mmol/L (96-108); Estimated Glomerular Filt Rate > 60; Potassium 4.1 mmol/L (3.3-5.1); Sodium 139 mmol/L (135-145)
== END 2022-07-10 06:24 | disposition home or self-care (01) ==
LOC: HO.HSH3E 06:23
PROVIDERS: Visit Provider Internal Medicine Endocrinology, Diabetes & Metabolism
DX: R06.02 Shortness of breath (principal)
CPT/HCPCS: 36415; 80051; 82565; 84520; 85025

== ENCOUNTER 2022-08-08 10:54 | Outpatient (REF) | payer MEDICARE, SELFPAY | END 2022-08-08 10:55 | disposition home or self-care (01) | LOC: HO.HSH3E 10:54 | PROVIDERS: Visit Provider Internal Medicine Medical Oncology | DX: H10.9 Unspecified conjunctivitis (principal) | CPT/HCPCS: 87070; 87205 ==

== ENCOUNTER 2022-09-12 06:48 | Outpatient (REF) | payer MEDICARE, SELFPAY ==
[2022-09-12 07:19] LABS: MANUAL DIFF FLAG NO
[2022-09-12 07:29] LABS: Basophils Absolute Auto 0.1 X10*3/uL (0.0-0.2); Basophils Percent Auto 0.8 % (0-2); Eosinophils Absolute Auto 0.3 X10*3/uL (0.0-0.4); Eosinophils Percent Auto 4.7 % (0-4); Hematocrit 41.5 % (42.0-52.0); Hemoglobin 13.4 g/dl (14.0-18.0); Imm Gran Abs Auto 0.02 X10*3/uL (0.00-0.03); Imm Gran Pct Auto 0.3 % (0.0-0.4); Lymphocytes Absolute Auto 2.3 X10*3/uL (1.2-4.9); Lymphocytes Percent Auto 31.1 % (20-40); Mean Corpuscular HGB Conc 32.3 g/dl (31.0-36.0); Mean Corpuscular Hemoglobin 28.9 pg (27.0-33.0); Mean Corpuscular Volume 89.4 fL (80.0-98.0); Monocytes Absolute Auto 0.7 X10*3/uL (0.1-1.2); Neutrophils Absolute Auto 3.9 x10*3/uL (2.0-8.3); Neutrophils Percent Auto 53.1 % (45-73); Platelet Count 205 X10*3/uL (160-400); Red Blood Count 4.64 X10*6/uL (4.60-5.80); White Blood Count 7.3 X10*3/uL (4.8-10.8)
[2022-09-12 07:56] LABS: Alanine Aminotransferase 8 U/L (0-40); Albumin Level 3.4 g/dL (3.5-5.0); Alkaline Phosphatase 54 U/L (39-117); Anion Gap 11 (12-20); Aspartate Amino Transferase 12 U/L (5-37); Bilirubin Total 0.6 mg/dL (0.0-1.0); Blood Urea Nitrogen 9 mg/dL (9-16); Calcium 8.5 mg/dL (8.4-10.2); Carbon Dioxide 28 mmol/L (22-29); Chloride 106 mmol/L (96-108); Cholesterol 149 mg/dL; Estimated Glomerular Filt Rate > 60; Glucose Fasting 124 mg/dL (60-99); HDL Cholesterol 32 mg/dL; LDL Cholesterol Calculated 92 mg/dl; Potassium 4.1 mmol/L (3.3-5.1); Sodium 141 mmol/L (135-145); Total Protein 5.4 g/dL (6.5-8.0); Triglycerides 125 mg/dL
[2022-09-12 08:14] LABS: Prostate Specific Antigen 0.58 ng/mL (<0.05-4.0)
[2022-09-12 08:24] LABS: Estimated Average Glucose 146 mg/dL; Hemoglobin A1c % 6.7 %
== END 2022-09-12 06:49 | disposition home or self-care (01) ==
LOC: HO.HSH3E 06:48
PROVIDERS: Visit Provider Internal Medicine Medical Oncology
DX: Z12.5 Encounter for screening for malignant neoplasm of prostate (principal); E11.9 Type 2 diabetes mellitus without complications; I50.9 Heart failure, unspecified; I48.91 Unspecified atrial fibrillation
CPT/HCPCS: 36415; 80053; 80061; 83036; 84153; 85025

== ENCOUNTER 2022-12-24 15:18 | Outpatient (REF) | payer MEDICARE, SELFPAY | END 2022-12-24 15:19 | disposition home or self-care (01) | LOC: HO.LNP 15:18 | PROVIDERS: PCP Internal Medicine Medical Oncology; Visit Provider Internal Medicine Medical Oncology | DX: Z13.89 Encounter for screening for other disorder (principal) ==

== ENCOUNTER 2022-12-24 15:54 | Outpatient (REF) | payer MEDICARE, SELFPAY | END 2022-12-24 15:55 | disposition home or self-care (01) | LOC: HO.HSH3W 15:54 | PROVIDERS: Visit Provider Internal Medicine Medical Oncology | DX: H57.9 Unspecified disorder of eye and adnexa (principal) | CPT/HCPCS: 87070; 87205 ==

== ENCOUNTER 2023-02-22 22:25 | Inpatient (IN) | payer MEDICARE, OTHER, SELFPAY ==
--- NOTE | ~2023-02-22 | CT_ITS ---
EXAMINATION: CT ANGIOGRAM OF THE CHEST WITH AND WITHOUT CONTRAST (CT PULMONARY ANGIOGRAM FOR PE) CLINICAL INFORMATION: Reason for Exam hypoxia, history of PE COMPARISON: 06/17/2021 TECHNIQUE: Prior to contrast administration, noncontrast localization images were obtained. Subsequently, multidetector volumetric imaging was performed from the thoracic inlet to below the diaphragms following the administration of 65 mL Omnipaque 350 intravenous contrast. No contrast reaction reported Sagittal, coronal, and MIP oblique sagittal reformatted images were obtained on the CT workstation, uploaded to PACS, and reviewed. This CT examination was performed using dose optimization techniques as appropriate, variously including the following: *Automated exposure control *Adjustment of mA and/or kV according to patient size (this includes techniques or standardized protocols for targeted exams where dose is matched to indication/reason for exam; i.e. extremities or head) *Use of iterative reconstruction technique Total exam dose-length product 363 mGy-cm FINDINGS: QUALITY OF STUDY/CONTRAST BOLUS: Suboptimal in some regions PULMONARY ARTERIES: Limited evaluation of the segmental and subsegmental vessels in the mid to lower lungs due to respiratory motion artifact. No pulmonary embolus is seen elsewhere. THORACIC AORTA: No evidence of aortic aneurysm or dissection. There is atherosclerotic calcification along the aorta. LUNG: Limited detailed evaluation due to respiratory motion artifact. There is collapse of the posterior wall the trachea, raising suspicion for tracheomalacia. Mild subsegmental atelectasis towards the lung bases. PLEURA: No pleural effusion or pneumothorax. MEDIASTINUM: Thyroid gland is not adequately assessed due to streak artifact. There are subcentimeter mediastinal lymph nodes within the range of normal variation. Borderline cardiomegaly without pericardial effusion. No evidence of septal bowing or right heart strain. CORONARY ARTERY CALCIFICATION: Present. 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 CHEST WALL/AXILLA: No axillary or internal mammary lymphadenopathy. OSSEOUS STRUCTURES: Multilevel degenerative changes in the spine. Status post sternotomy. UPPER ABDOMEN: Cholelithiasis is noted. CT/CT angio chest PE protocol IMPRESSION: 1. Inadequate assessment of the segmental and subsegmental vessels in the mid to lower lungs due to to extensive respiratory motion artifact. No evidence of pulmonary embolus elsewhere. 2. Collapse of the posterior wall of the trachea, suspicious for tracheomalacia. 3. Cholelithiasis. VTE: Indeterminate
--- NOTE | ~2023-02-22 | XR_ITS ---
EXAMINATION: XR CHEST CLINICAL INFORMATION: Shortness of breath. COMPARISON: Chest radiograph 06/16/2021. TECHNIQUE: Frontal view of the chest was obtained. FINDINGS: Stable prominence of the cardiomediastinal silhouette with redemonstration of sternal wires and multiple mediastinal surgical clips. Unchanged central bronchial wall thickening as well as mild diffuse interstitial prominence. No new focal airspace density. No pleural effusion or pneumothorax. Chronic left-sided rib deformities. No acute osseous findings. Nonspecific gaseous distention of the stomach. XR/XR chest 1V IMPRESSION: 1. No acute cardiopulmonary findings. 2. Nonspecific gaseous distention of the stomach.
[2023-02-22 22:31] VITALS: BP 99/66; PULSE 115; O2SAT 97
--- NOTE | 2023-02-22 22:34 | ECG_ITS ---
Test Reason : sepsis Blood Pressure : / mmHG Vent. Rate : 090 BPM Atrial Rate : 000 BPM P-R Int : 000 ms QRS Dur : 124 ms QT Int : 390 ms P-R-T Axes : 000 023 -17 degrees QTc Int : 477 ms Junctional Rhythm Right bundle branch block Inferior infarct , age undetermined Abnormal ECG When compared with ECG of 16-JUN-2021 20:31, Heart rate has decreased Referred By: Generic ED Physician Electronically Signed By:NANETTE BRUNNER
[2023-02-22 22:45] VITALS: BP 116/53; PULSE 90; RESP 22; TEMP 38.3; O2SAT 99; BMI 26.5
--- NOTE | 2023-02-22 22:58 | ED.GENADULT ---
HPI - General Adult General Chief complaint: Altered Mental Status Stated complaint: sob,coughing,bilateral wheezing per ems Time Seen by Provider: 02/22/23 22:55 Source: EMS Mode of arrival: EMS Limitations: altered mental status History of Present Illness HPI narrative: 87-year-old male [facility]. Has past history of type 2 diabetes, atherosclerotic heart disease, peripheral vascular disease, history of thromboembolism, Alzheimer's disease since, BPH, atrial fibrillation, hypertension, depression, CVA. Patient is a DNR DNI. Patient is on blood thinning medications. Patient is typically nonverbal. He tested recently negative for COVID.. He has had a change in his respiratory status this evening with reportedly low oxygen saturation. Is recommended that he be transferred for further evaluation his oxygen saturation earlier was 88% on room air. He refused to eat. His blood pressure was stable. Heart rate was 94. He was afebrile his fingerstick was 270 in that was at 9:00 p.m.. Related Data Home Medications Medication Instructions Recorded Confirmed apixaban 5 mg tablet 5 mg PO BID 06/17/21 06/17/21 aspirin 81 mg chewable tablet 81 mg PO DAILY 06/17/21 06/17/21 carvedilol 6.25 mg tablet 6.25 mg PO BID 06/17/21 06/17/21 cholecalciferol (vitamin D3) 50 50 mcg PO DAILY 06/17/21 06/17/21 mcg (2,000 unit) tablet insulin glargine 100 unit/mL 15 unit subcut DAILY 06/17/21 06/17/21 subcutaneous solution lisinopril 2.5 mg tablet 2.5 mg PO DAILY 06/17/21 06/17/21 metformin 1,000 mg tablet 1,000 mg PO DAILY 06/17/21 06/17/21 metformin 500 mg tablet 500 mg BEDTIME 06/17/21 06/17/21 sennosides 8.6 mg tablet (senna) 17.2 mg PO BEDTIME 06/17/21 06/17/21 simvastatin 20 mg tablet 20 mg PO BEDTIME 06/17/21 06/17/21 tamsulosin 0.4 mg capsule 0.4 mg PO DAILY 06/17/21 06/17/21 Previous Rx's Medication Instructions Recorded dexamethasone 6 mg tablet 6 mg PO DAILY #7 tabs 06/19/21 Allergies Allergy/AdvReac Type Severity Reaction Status Date / Time No Known Allergies Allergy Verified 06/16/21 20:44 Review of Systems Review of Systems: Yes Unobtainable due to mental status [facility] Past Medical History Medical History (Updated 02/22/23 @ 23:06 by Ventura Bah MD) Congestive heart failure Acute respiratory disease due to COVID-19 virus Social History Social History Advance Directives: No Advance Directives Information Provided: Yes service: Yes Current occupational status: retired Physical Exam ED Vital Signs: Vital Signs - 24 hr 02/22/23 22:45 Temperature 100.9 F H Pulse Rate 90 Respiratory Rate 22 H Blood Pressure 116/53 L Pulse Oximetry 99 Oxygen Delivery Method Nasal Cannula BMI result Body Mass Index 26.5 GEN: Well developed, no acute distress, alert, nonverbal HEENT: Normocephalic, atraumatic, normal external ears, nose appears normal, no oropharyngeal edema or exudates Eyes: Normal to appearance Neck: Supple, no lymphadenopathy Respiratory: Coarse breath sounds bilaterally, coughing Cardiovascular: Regular rate and rhythm, no murmurs rubs or gallops Abdomen: Soft, nontender, nondistended, no guarding, no rebound Back: No CVA tenderness Extremities: No clubbing cyanosis or edema Neurologic: No focal neurologic deficits, cranial nerves 2-12 intact, strength is 5/5 bilaterally Skin: No rash Course Reevaluation(s) Reevaluation #1: Patient likely meet sepsis criteria. Broad-spectrum antibiotics been ordered. At 30 cc/kilogram IV fluid boluses also been ordered. Patient will be admitted to the hospital following the completion of his workup. Time: 23:24 Reevaluation #2: Patient has elevated troponin. The presence of sepsis, this is likely demand ischemia as opposed to acute unstable plaque. EKG shows no acute ST elevations. Patient is already on oral anticoagulation. There is no indication at this point to consider acute coronary syndrome given the current clinical scenario. Time: 23:37 Reevaluation #3: Focused sepsis examination at this time reveals, improved heart rate, blood pressure remained stable. He remains on oxygen supplementation. Patient is apparently at his baseline mental status. Medications Administered Generic Name Dose Route Start Last Admin Trade Name Freq PRN Reason Stop Dose Admin Vancomycin HCl 2,000 mg in 500 mls @ 250 mls/hr 02/22/23 23:30 02/23/23 00:46 Vancomycin/Ns IV 02/23/23 01:29 250 mls/hr ONCE ONE Administration Discontinued Medications Generic Name Dose Route Start Last Admin Trade Name Jerilyn PRN Reason Stop Dose Admin Acetaminophen 650 mg 02/23/23 00:42 02/23/23 00:51 Acetaminophen Supp 650 Mg Supp.Rect DC 02/23/23 00:43 650 mg ONCE ONE Administration Ceftriaxone Sodium 1 gm/ 50 mls @ 100 mls/hr 02/22/23 23:07 02/22/23 23:50 Sodium Chloride IV 02/22/23 23:36 100 mls/hr ONCE ONE Administration Vancomycin HCl 1,000 mg/ 270 mls @ 270 mls/hr 02/22/23 23:07 02/23/23 00:37 Sodium Chloride IV 02/23/23 00:06 Not Given ONCE ONE Iohexol 65 ml 02/23/23 00:22 02/23/23 00:23 Iohexol 350 Mg/Ml 100 Ml Infus..Btl IV 02/23/23 00:23 65 ml ONCE ONE Administration Medical Decision Making Medical Decision Making MDM Narrative: Patient presents with cough, change in mental status, hypoxia. He has a fever. Patient is unable to participate in history and physical. His belly is benign. Suspect pneumonia. He does come from an extended care facility. Will treat with broad-spectrum antibiotics and anticipate hospitalization. He is on blood thinning medications doubt PE. Differential diagnosis includes pneumonia, bronchitis, COVID, influenza, CHF. Plan will be to obtain chest x-ray, blood cultures, CBC, chemistry. Will order lactic acid. Differential Diagnosis Differential Diagnoses: The differential diagnosis associated with the presentation includes (See above) Consult Healthcare Provider Management of the patient was discussed with: Hospitalist Lab Data [facility] Lab Attestation statement: I reviewed the patient's lab results. 02/22/23 22:55 02/22/23 22:55 Labs: Lab Results 02/22/23 02/23/23 Range/Units 22:55 00:47 WBC 16.5 H (4.8-10.8) X10*3/uL RBC 4.41 L (4.60-5.80) X10*6/uL Hgb 12.5 L (14.0-18.0) g/dl Hct 39.1 L (42.0-52.0) % MCV 88.7 (80.0-98.0) fL MCH 28.3 (27.0-33.0) pg MCHC 32.0 (31.0-36.0) g/dl RDW 14.6 (11.0-16.0) % Plt Count 191 (160-400) X10*3/uL MPV 9.2 L (9.4-12.4) fL Immature Gran % (Auto) 0.6 H (0.0-0.4) % Neut % (Auto) 87.6 H (45-73) % Lymph % (Auto) 4.8 L (20-40) % [place] % (Auto) 6.5 (2-11) % Eos % (Auto) 0.1 (0-4) % Baso % (Auto) 0.4 (0-2) % Lymph # (Auto) 0.8 L (1.2-4.9) X10*3/uL [place] # (Auto) 1.1 (0.1-1.2) X10*3/uL Eos # (Auto) 0.0 (0.0-0.4) X10*3/uL Baso # (Auto) 0.1 (0.0-0.2) X10*3/uL Abs Immat Gran (auto) 0.10 H (0.00-0.03) X10*3/uL Absolute Neuts (auto) 14.5 H (2.0-8.3) x10*3/uL Absolute Nucleated RBC 0.000 (0.0-0.012) X10*3/uL Nucleated RBC % (auto) 0.0 (0.0-0.2) /100WBC VBG pH 7.41 (7.32-7.43) VBG pCO2 39 mmHg VBG pO2 51 mmHg VBG HCO3 25 (22-26) mmol/L VBG O2 Saturation 82.0 % VBG Base Excess 1.5 mmol/L Sodium 137 (135-145) mmol/L Potassium 5.1 D (3.3-5.1) mmol/L Chloride 101 (96-108) mmol/L Carbon Dioxide 22 (22-29) mmol/L Anion Gap 19 (12-20) BUN 21 H (9-16) mg/dL Creatinine 0.65 (0.5-1.4) mg/dL Estim Creat Clear Calc 72.2 Estimated GFR > 60 Random Glucose 229 H (60-115) mg/dL Lactic Acid 3.5 H* (0.5-2.0) mmol/L Calcium 8.9 (8.4-10.2) mg/dL Troponin I High Sens 47.1 H (<3.5-35.0) ng/L B-Natriuretic Peptide 899 H (<100) pg/mL COVID-19 (JACQUI) Negative (Negative) COVID-19 Clin Com See Note Influenza Type A (DON) Negative (Negative) Influenza Type B (DON) Negative (Negative) Influenza A & B Note See Note Independent Interpretation I performed an independent interpretation of an: EKG (Normal sinus rhythm heart rate 90, right bundle-branch block, no acute ST elevations depressions.), Plain X-Ray (Chest: No discrete infiltrates) and CT Scan (Angio of the chest: No definite pulmonary embolus) Radiology Impression Discussion of test interpretation with radiology: I have reviewed the radiologist's reading. Radiologist Impression: No PE Independent Historian Clinical information obtained from an independent historian. History obtained from or confirmed by: EMS Prescription Management I considered prescription management with: Antiviral and Antibiotic Chronic Conditions Patient?s care impacted by: Diabetes Discharge Plan Discharge Clinical Impression: Hypoxia Patient Disposition: Admitted As Inpatient
[2023-02-22 23:09] LABS: MANUAL DIFF FLAG NO
[2023-02-22 23:11] LABS: Basophils Absolute Auto 0.1 X10*3/uL (0.0-0.2); Basophils Percent Auto 0.4 % (0-2); Eosinophils Percent Auto 0.1 % (0-4); Hematocrit 39.1 % (42.0-52.0); Hemoglobin 12.5 g/dl (14.0-18.0); Imm Gran Pct Auto 0.6 % (0.0-0.4); Lymphocytes Absolute Auto 0.8 X10*3/uL (1.2-4.9); Lymphocytes Percent Auto 4.8 % (20-40); Mean Corpuscular Hemoglobin 28.3 pg (27.0-33.0); Mean Corpuscular Volume 88.7 fL (80.0-98.0); Mean Platelet Volume 9.2 fL (9.4-12.4); Monocytes Absolute Auto 1.1 X10*3/uL (0.1-1.2); Monocytes Percent Auto 6.5 % (2-11); Neutrophils Absolute Auto 14.5 x10*3/uL (2.0-8.3); Neutrophils Percent Auto 87.6 % (45-73); Platelet Count 191 X10*3/uL (160-400); Red Blood Count 4.41 X10*6/uL (4.60-5.80); Red Cell Distribution Width 14.6 % (11.0-16.0); White Blood Count 16.5 X10*3/uL (4.8-10.8)
[2023-02-22 23:21] LABS: COVID-19 Test Negative (Negative); IDNOW Serial# 08D9AD1C; IDNOW Serial# BCCEAD1C; Influenza A Negative (Negative); Influenza B2 Negative (Negative); Lactic Acid 3.5 mmol/L (0.5-2.0)
[2023-02-22 23:26] LABS: Anion Gap 19 (12-20); Blood Urea Nitrogen 21 mg/dL (9-16); Calcium 8.9 mg/dL (8.4-10.2); Carbon Dioxide 22 mmol/L (22-29); Chloride 101 mmol/L (96-108); Creatinine Clr Calc Pharmacy 72.2; Estimated Glomerular Filt Rate > 60; Glucose Random 229 mg/dL (60-115); Potassium 5.1 mmol/L (3.3-5.1); Sodium 137 mmol/L (135-145)
[2023-02-22 23:30] LABS: Troponin-I High Sensitivity 47.1 ng/L (<3.5-35.0)
[2023-02-22] MEDS: cefTRIAXone sodium 1 GM in 0.9 % Sodium Chloride 50 ML IV (23:50)
[2023-02-23] VITALS (7 sets, daily range): BP systolic 94–141; BP diastolic 41–69; PULSE 69–88; RESP 18–26; TEMP 36.3–37.1; O2SAT 91–100
[2023-02-23 00:20] LABS: B Type Natriuretic Peptide 899 pg/mL (<100)
[2023-02-23] MEDS: iohexoL 350 MG/ML 100 ML INFUS..BTL 65 ML IV (00:23)
[2023-02-23] MEDS: vancomycin/NS 2,000 MG/500 ML PLAST..BAG 250 MG IV (00:46)
[2023-02-23] MEDS: Acetaminophen Supp 650 MG SUPP.RECT PR (00:51)
[2023-02-23 00:52] LABS: Venous Blood Gas Refer to POC result
[2023-02-23 00:53] LABS: VBG Base Excess 1.5 mmol/L; VBG HCO3 25 mmol/L (22-26); VBG pCO2 39 mmHg; VBG pH 7.41 (7.32-7.43); VBG pO2 51 mmHg
[2023-02-23 01:02] LABS: Reflex Lactate? Lactic Acid Added
[2023-02-23 04:45] LABS: Reflex Lactate? 2 Y
[2023-02-23 06:17] LABS: ~Lactic Acid-LAB USE ONLY 2.3 mmol/L (0.5-2.0)
[2023-02-23 06:19] LABS: Alanine Aminotransferase 10 U/L (0-40); Albumin Level 3.2 g/dL (3.5-5.0); Alkaline Phosphatase 49 U/L (39-117); Anion Gap 15 (12-20); Aspartate Amino Transferase 18 U/L (5-37); Bilirubin Total 0.4 mg/dL (0.0-1.0); Blood Urea Nitrogen 18 mg/dL (9-16); Calcium 8.6 mg/dL (8.4-10.2); Carbon Dioxide 22 mmol/L (22-29); Chloride 105 mmol/L (96-108); Creatinine Clr Calc Pharmacy 88.6; Estimated Glomerular Filt Rate > 60; Glucose Random 165 mg/dL (60-115); Potassium 4.7 mmol/L (3.3-5.1); Sodium 137 mmol/L (135-145); Total Protein 5.7 g/dL (6.5-8.0)
[2023-02-23 06:21] LABS: Basophils Absolute Auto 0.1 X10*3/uL (0.0-0.2); Basophils Percent Auto 0.4 % (0-2); Eosinophils Absolute Auto 0.1 X10*3/uL (0.0-0.4); Eosinophils Percent Auto 0.4 % (0-4); Hematocrit 36.9 % (42.0-52.0); Hemoglobin 11.8 g/dl (14.0-18.0); Imm Gran Abs Auto 0.08 X10*3/uL (0.00-0.03); Imm Gran Pct Auto 0.5 % (0.0-0.4); Lymphocytes Absolute Auto 1.6 X10*3/uL (1.2-4.9); Lymphocytes Percent Auto 9.3 % (20-40); MANUAL DIFF FLAG SCAN; Mean Corpuscular Hemoglobin 28.2 pg (27.0-33.0); Mean Corpuscular Volume 88.1 fL (80.0-98.0); Mean Platelet Volume 9.6 fL (9.4-12.4); Monocytes Absolute Auto 1.6 X10*3/uL (0.1-1.2); Monocytes Percent Auto 9.1 % (2-11); Neutrophils Absolute Auto 13.7 x10*3/uL (2.0-8.3); Neutrophils Percent Auto 80.3 % (45-73); Platelet Count 165 X10*3/uL (160-400); Red Blood Count 4.19 X10*6/uL (4.60-5.80); Red Cell Distribution Width 14.8 % (11.0-16.0); SCAN SMEAR FLAG 1; White Blood Count 17.1 X10*3/uL (4.8-10.8)
--- NOTE | 2023-02-23 06:42 | P.HPHOSP_ITS ---
History of Present Illness Date of Service: 02/23/23 Chief Complaint: hypoxic 87-year-old male with past medical history of type 2 diabetes, CAD, peripheral vascular disease, history of thromboembolism, Alzheimer's disease, BPH, AFib, HTN, depression, CVA, nonverbal at baseline, a custodial resident comes into the hospital after patient found to be hypoxic and having low oxygen saturation. He was noted to be short of breath, they checked his O2 and was 80% on room air. He also has had low appetite and has not been eating. Unable to get his other review of systems as patient is nonverbal and has dementia at baseline and not able to communicate. On arrival to the ED patient has a temp of a 100.9 degrees, heart rate of 90, respiratory of 22, blood pressure 116/53 . Placed on 4 L of oxygen Labs are significant for WBC count of 16.5, hemoglobin of 12.5, hematocrit 39.1, BUN of 21, lactic acid of 3.5, BNP of 899 with previously 300. VBG showed a pH of 7.4, troponin of 47 COVID, influenza, negative CTA inadequate in assessment of the lungs due to motion Patient will be admitted for further management PMHX hx obtained from chart Review of Systems 2 Review of Systems: Yes Unobtainable due to mental condition and Unobtainable due to mental status [facility] Medical History (Updated 02/23/23 @ 07:05 by Maryann Parker MD) CVA (cerebral vascular accident) Depression HTN (hypertension), benign BPH (benign prostatic hyperplasia) A-fib CAD (coronary artery disease) Peripheral vascular disease AD (Alzheimer's disease) Congestive heart failure Social History Patient Tobacco Use Status: Tobacco use Unknown Advance Directives: No Advance Directives Information Provided: Yes service: Yes Current occupational status: retired Meds Allergies Allergy/AdvReac Type Severity Reaction Status Date / Time No Known Allergies Allergy Verified 06/16/21 20:44 Active Medications: Current Medications Acetaminophen (Acetaminophen 325 Mg Tablet) 650 mg PO Q6H PRN PRN Reason: Pain, Mild (Pain Scale 1-3) Docusate Sodium (Docusate Sodium 100 Mg Capsule) 100 mg PO DAILY PRN PRN Reason: Constipation Furosemide (Furosemide 40 Mg/4 Ml Vial) 40 mg IVPUSH BID@0900,1800 QUINCY; Protocol Ondansetron HCl (Ondansetron Hcl 4 Mg/2 Ml Vial) 4 mg IVPUSH Q8H PRN PRN Reason: Nausea and Vomiting Pharmacy Consult (Consult Rx Vancomycin Dosing) 1 each MISCELLANE DAILY PRN PRN Reason: Consult order Home Medications Medication Instructions Recorded Confirmed Last Taken Type apixaban 5 mg tablet 5 mg PO BID 06/17/21 02/23/23 Unknown History aspirin 81 mg chewable tablet 81 mg PO DAILY 06/17/21 02/23/23 Unknown History carvedilol 6.25 mg tablet 6.25 mg PO BID 06/17/21 02/23/23 Unknown History cholecalciferol (vitamin D3) 50 50 mcg PO DAILY 06/17/21 02/23/23 Unknown History mcg (2,000 unit) tablet insulin glargine 100 unit/mL 18 unit subcut DAILY 06/17/21 02/23/23 Unknown History subcutaneous solution lisinopril 2.5 mg tablet 2.5 mg PO DAILY 06/17/21 02/23/23 Unknown History metformin 1,000 mg tablet 1,000 mg PO DAILY 06/17/21 02/23/23 Unknown History metformin 500 mg tablet 500 mg BEDTIME 06/17/21 02/23/23 Unknown History sennosides 8.6 mg tablet (senna) 17.2 mg PO BEDTIME 06/17/21 02/23/23 Unknown History simvastatin 20 mg tablet 20 mg PO BEDTIME 06/17/21 02/23/23 Unknown History tamsulosin 0.4 mg capsule 0.4 mg PO DAILY 06/17/21 02/23/23 Unknown History Physical Exam 2 Vital Signs and Narrative: Vital Signs: Last Vital Signs Temp 98.8 F 02/23/23 02:34 Pulse 85 02/23/23 02:34 Resp 26 H 02/23/23 02:34 BP 94/49 L 02/23/23 02:34 Pulse Ox 98 02/23/23 02:34 O2 Del Method Nasal Cannula 02/23/23 02:34 O2 Flow Rate 1.5 02/23/23 02:34 Oxygen Flow Rate 4 02/22/23 22:45 BMI result Body Mass Index 26.5 Const: Other: Unable to obtain accurate physical exam as patient is noncooperative, nonverbal General: no acute distress Eyes: General: appearance normal, both eyes and all related structures Resp: Other: Crackles bilaterally Effort & Inspection: normal respiratory effort Cardio: Rate: regular rate Rhythm: regular rhythm GI: Palpation (GI): Soft to palpation Auscultation: normal bowel sounds Skin: General skin exam: no rashes or lesions noted Extrem: Other: 2+ lower extremity edema Results Labs 02/23/23 05:58 02/23/23 05:58 Labs: Laboratory Results - last 24 hr 02/22/23 02/23/23 02/23/23 22:55 00:47 02:24 MCV 88.7 MCH 28.3 MCHC 32.0 RDW 14.6 Plt Count 191 MPV 9.2 L Immature Gran % (Auto) 0.6 H Neut % (Auto) 87.6 H Lymph % (Auto) 4.8 L Hamblen % (Auto) 6.5 Eos % (Auto) 0.1 Baso % (Auto) 0.4 Lymph # (Auto) 0.8 L Hamblen # (Auto) 1.1 Eos # (Auto) 0.0 Baso # (Auto) 0.1 Abs Immat Gran (auto) 0.10 H Absolute Neuts (auto) 14.5 H Absolute Nucleated RBC 0.000 Nucleated RBC % (auto) 0.0 Hold Purple Top SEE NOTE VBG pH 7.41 VBG pCO2 39 VBG pO2 51 VBG HCO3 25 VBG O2 Saturation 82.0 VBG Base Excess 1.5 Anion Gap 19 Estim Creat Clear Calc 72.2 Estimated GFR > 60 Random Glucose 229 H Lactic Acid 3.5 H* Lactic Acid F/U @ 2Hr 3.0 H* Lactic Acid F/U @ 4Hr Calcium 8.9 Total Bilirubin AST ALT Alkaline Phosphatase B-Natriuretic Peptide 899 H Total Protein Albumin Hold Green Top See Note COVID-19 (JACQUI) Negative COVID-19 Clin Com See Note Influenza Type A (DON) Negative Influenza Type B (DON) Negative Influenza A & B Note See Note 02/23/23 05:58 MCV MCH MCHC RDW Plt Count MPV Immature Gran % (Auto) Neut % (Auto) Lymph % (Auto) Hamblen % (Auto) Eos % (Auto) Baso % (Auto) Lymph # (Auto) Hamblen # (Auto) Eos # (Auto) Baso # (Auto) Abs Immat Gran (auto) Absolute Neuts (auto) Absolute Nucleated RBC Nucleated RBC % (auto) Hold Purple Top VBG pH VBG pCO2 VBG pO2 VBG HCO3 VBG O2 Saturation VBG Base Excess Anion Gap 15 Estim Creat Clear Calc 88.6 Estimated GFR > 60 Random Glucose 165 H Lactic Acid Lactic Acid F/U @ 2Hr Lactic Acid F/U @ 4Hr 2.3 H* Calcium 8.6 Total Bilirubin 0.4 AST 18 ALT 10 Alkaline Phosphatase 49 B-Natriuretic Peptide Total Protein 5.7 L Albumin 3.2 L Hold Green Top COVID-19 (JACQUI) COVID-19 Clin Com Influenza Type A (DON) Influenza Type B (DON) Influenza A & B Note Imaging Radiologist's Impressions: Impressions Chest X-Ray 02/22/23 22:41 IMPRESSION: 1. No acute cardiopulmonary findings. 2. Nonspecific gaseous distention of the stomach. Chest CTA 02/23/23 00:33 IMPRESSION: 1. Inadequate assessment of the segmental and subsegmental vessels in the mid to lower lungs due to to extensive respiratory motion artifact. No evidence of pulmonary embolus elsewhere. 2. Collapse of the posterior wall of the trachea, suspicious for tracheomalacia. 3. Cholelithiasis. VTE: Indeterminate Assessment and Plan (1) Acute respiratory failure with hypoxia: Status: Acute (2) Acute exacerbation of CHF (congestive heart failure): Qualifiers: Heart failure type: systolic Qualified Code(s): I50.23 - Acute on chronic systolic (congestive) heart failure Status: Acute (3) HAP (hospital-acquired pneumonia): Status: Acute Plan 87-year-old male who comes into the hospital from custodial with hypoxia # acute hypoxic respiratory failure - secondary to CHF versus pneumonia - has elevated BNP, leukocytosis, hypoxia - will treat with IV antibiotics, IV Lasix - chest x-ray shows no acute pulmonary findings, CT of the chest nondiagnostic due to motion - follow procalcitonin, follow cultures - will evaluate patient for aspiration - speech eval consulted # CHF exacerbation - has elevated BNP, lower extremity edema - patient will be treated with IV Lasix - daily weight, strict I&O, low-sodium diet - echocardiogram # Healthcare acquired pneumonia versus aspiration - has leukocytosis, hypoxia, evidence of infiltrate on imaging - will treat with IV antibiotics - Procalcitonin pending - respiratory pathogen, Legionella, strep antigen pending - follow respiratory status # hypertension - stable - continue antihypertensives # diabetes - hold metformin - start low-dose sliding scale insulin # Afib - continue Eliquis, and carvedilol DVT ppx: Eliquis Given patient's hypoxia, for needing oxygen patient require minimum 2 nights inpatient hospital stay for further management and monitoring Time Spent With Patient Time: Total time managing care of this patient today ____ minutes. Quality Stroke Does the patient have a stroke diagnosis?: No VTE Prior VTE?: No VTE Risk Level:: Medical - moderate - high VTE Device Contraindication: Treatment Not Indicated VTE Drug Contraindication: N/A - Med Ordered
[2023-02-23 06:55] LABS: SLIDE REVIEW VERIFIED
--- NOTE | 2023-02-23 07:00 | CA_ITS ---
Transthoracic Echocardiogram Patient (Last, First, Middle): Enmanuel Stephenson K Gender: Male Date of : 1935 Age: 87 Procedure Date: 02/23/2023 Procedure Type: Transthoracic Echocardiogram Location: [facility] [place] Height: 167.64 cm Weight: 74.39 kg BSA: 1.84 m2 Heart Rate: 72 bpm BP: 94 / 49 mmHg Core Blower: SB Referring MD: Maryann Parker MD Symptoms: CHF? Study Quality: Adequate w contrast ECG Rhythm: Sinus Conclusions: - 1. Normal LV ejection fraction with LVEF of 60- 65% with mild LVH with grade 2 diastolic dysfunction 2. Severe valvular calcific aortic stenosis 3. Calcific mitral valve disease with mild mitral regurgitation 4. Upper limits of normal ascending aortic size 5. Normal RV systolic pressure 6. No gross pericardial effusion Findings Procedure Information Contrast agent, definity, is being given per protocol without apparent complications. Left Ventricle Normal left ventricular size and systolic function. There is mildly increased left ventricular wall thickness. The visually estimated ejection fraction is between 60-65%. Spectral Doppler is indicative of a pseudonormal filling pattern. Elevated filling pressures. E/E prime ratio is >15, consistent with elevated filling pressures. Evidence suggests grade II (moderate) diastolic dysfunction. Right Ventricle Normal right ventricular cavity size. There is moderately decreased right ventricular systolic function. Atria The left atrium is mildly dilated. Interatrial shunt cannot be excluded. The right atrium was not well visualized. Aortic Valve There is moderate calcification of the aortic valve. There is severe aortic valve stenosis. The peak aortic gradient is 74 mmHg.The mean gradient is 46 mmHg. There is no aortic valve regurgitation. Mitral Valve There is mild anterior and posterior mitral leaflet thickening. There is mild anterior and moderate posterior mitral annular calcification. There is moderate mitral annular calcification. There is mild mitral valve regurgitation. There is no mitral valve stenosis. Pulmonic Valve The pulmonic valve is likely normal. There is trace pulmonic valve regurgitation. Tricuspid Valve Normal tricuspid valve structure. There is mild tricuspid valve regurgitation. The right ventricular systolic pressure is normal. The right ventricular systolic pressure is 26 mmHg. Normal right atrial pressure. There is no evidence of pulmonary hypertension. Great Vessels The pulmonary artery was not well visualized. Venous The inferior vena cava is normal in size and collapses greater than 50% with inspiration. Pericardium/Pleural There is no evidence of pericardial effusion. Prior Study Comparison No prior study available for comparison. Measurements 2D Linear Measurements IVSd: 1.42 0.6-0.9/0.6-1.0 cm LVIDd: 4.24 3.9-5.3/4.2-5.9 cm LVIDd Index: 2.30 2.4-3.2/2.2-3.1 cm/m2 LVIDs: 3.20 2.0-3.6 cm LVPWd: 1.29 0.7-1.1 cm LA Diam: 4.10 2.7-3.8/3.0-4.0 cm LAIDs Index: 2.23 1.5-2.3 cm/m2 LVOT Diam: 2.20 3.0+(-)1.3 cm 2D Systolic Function EF 4C: 57.50 >55% EF 2C: 64.50 >55% EF BiP: 60.70 >55% Mitral Valve MV VTI: 0.26 MV Pk Fredi: 1.11 MV Mn Fredi: 0.91 MV Pk Grad: 5.00 MV Mn Grad: 3.00 MV Pk E: 1.06 MV PK A: 1.04 MV Decel Time: 199.00 E/A: 1.00 E'Lateral: 6.00 E'Medial: 4.20 E/E' Med: 25.20 E/E' Lat: 17.70 PHT: 58.00 MVA PHT: 3.79 MVA Continuity: 2.06 Decel Hernando: 5.35 Aortic Valve AoV Pk Fredi: 4.29 AoV Mn Fredi: 3.26 AoV VTI: 1.01 AoV Pk Grad: 74.00 Aov Mn Grad: 46.00 THU Cont.VTI: 0.53 LVOT LVOT Pk Fredi: 0.66 LVOT Mn Fredi: 0.47 LVOT VTI: 0.14 LVOT Pk Grad: 2.00 LVOT Mn Grad: 1.00 LVOT Diam: 2.20 LVOT Area: 3.80 Diastolic Function MV Pk E: 1.06 MV Pk A: 1.04 E/A: 1.00 E'Medial: 4.20 E/E' Med: 25.20 E' Laterial: 6.00 E/E' Lat: 17.70 Right Ventricle TAPSE (mm): 11.70 TVS' Fredi: 5.56 Tricuspid Valve TR Pk Fredi: 2.38 TR Pk Grad: 23.00 RA Press: 3.00 RVSP: 26.00 Great Vessels Aorta Sinus of Valsalva: 3.30 2.0-3.5 cm Ao Asc: 3.60 2.1-3.4 cm Pulmonary Valve PV Pk Fredi: 0.93 Peak PV Grad: 3.00 Updated in Other Vendor System with Status of Final Jacques Henry MD electronically signed on 02/23/2023 3:41:42 PM with status of Final
[2023-02-23 07:28] LABS: Cancel Lactic Acid Canceled
--- NOTE | 2023-02-23 07:46 | PC.NURSE ---
Assumed care of pt at 0700. Pt is resting quietly in bed. Pt was incontinent and a total bed change was completed. Pt was cleaned up and a [place] cath was placed. Currently on 2L NC, wheezing in bilat lungs w/ auscultation. Sats remain at 100% w/ oxygen. VSS. Abd soft/non tender.
[2023-02-23 08:19] LABS: Glucose, Whole Blood 125 mg/dL (60-115)
--- NOTE | 2023-02-23 08:28 | PC.NURSE ---
complete bed change and incontinent care done, pt repositioned. remains on 2L n/c satting 99-100%.
--- NOTE | 2023-02-23 09:15 | PHA.MEDREC ---
Pharmacy Consult ? Medication Reconciliation MED REC REVIEW W FACILITY LIST Pharmacy has completed the medication reconciliation.
--- NOTE | 2023-02-23 09:18 | MHC.CM.PN ---
IMM 02/23, addressed with pts daughter Zulema Cavazos [phone]. Pt admitted with dx CHF. Pt with Alzheimer's disease and non-verbal at baseline. Pt resides at [facility], D/C plan is for him to return there when medically cleared. Transport via [email or web address]. Copy of HCP requested.
--- NOTE | 2023-02-23 09:29 | PM.EVENT ---
Event Note Date of Service: 02/23/23 Event Note: Pt seen and exameined, labs, meds, imaging reviewed. A/P per h and p from this morning and continue to follow clinically Time Spent With Patient Time: Total time managing care of this patient today ____ minutes.
[2023-02-23] MEDS: Furosemide 40 MG/4 ML VIAL IVPUSH ×2 (10:19→17:59)
[2023-02-23] MEDS: Insulin Glargine,Hum.rec.anlog 100 UNIT/ML 10 ML VIAL 18 UNIT SUBCUT (10:19)
[2023-02-23] MEDS: Tamsulosin HCL 0.4 MG CAPSULE PO (10:20)
[2023-02-23] MEDS: Cholecalciferol (Vitamin D3) 25 MCG TABLET 50 MCG PO (10:20)
[2023-02-23] MEDS: Apixaban 5 MG TABLET PO (10:20)
[2023-02-23] MEDS: carvediloL 6.25 MG TABLET PO (10:20)
[2023-02-23] MEDS: Aspirin 81 MG TAB.CHEW PO (10:21)
[2023-02-23 11:00] LABS: Glucose, Whole Blood 123 mg/dL (60-115)
[2023-02-23 11:12] LABS: Procalcitonin 0.03 ng/mL
[2023-02-23 12:11] LABS: Adenovirus PCR Not Detected (Not Detect.); Bordetella parapertussis PCR Not Detected (Not Detect.); Bordetella pertussis PCR Not Detected (Not Detect.); Chlamydia pneumoniae PCR Not Detected (Not Detect.); Coronavirus 229E PCR Not Detected (Not Detect.); Coronavirus HKU1 PCR Not Detected (Not Detect.); Coronavirus NL63 PCR Not Detected (Not Detect.); Coronavirus OC43 PCR Not Detected (Not Detect.); Human metapneumovirus PCR Not Detected (Not Detect.); Influenza A PCR Not Detected (Not Detect.); Influenza B PCR Not Detected (Not Detect.); Mycoplasma pneumoniae PCR Not Detected (Not Detect.); Parainfluenza 1 PCR Not Detected (Not Detect.); Parainfluenza 2 PCR Not Detected (Not Detect.); Parainfluenza 3 PCR Not Detected (Not Detect.); Parainfluenza 4 PCR Not Detected (Not Detect.); RSV PCR Not Detected (Not Detect.); Rhino/Enterovirus PCR Detected (Not Detect.)
--- NOTE | 2023-02-23 12:20 | MHC.SLORD ---
Speech Language Pathology Order Status: Order received for bedside swallow eval. ADA ACCOMMODATION CONSULTANT attempted @ 10:41am. Pt not waking to sternal rub. Not appropriate for PO trials d/t lethargic state. Will re-attempt later. MD & RN notified.
[2023-02-23] MEDS: vancomycin HCL 1,000 MG in 0.9 % Sodium Chloride 250 ML 270 MG IV (12:38)
[2023-02-23 12:40] LABS: SARS-CoV-2 PCR Not Detected (Not Detect.)
[2023-02-23 15:47] LABS: Glucose, Whole Blood 112 mg/dL (60-115)
--- NOTE | 2023-02-23 18:19 | MHC.SL.SWA ---
Speech Pathologist Impression: Risk of aspiration, oropharyngeal dysphagia Risk of Aspiration Due to: Lethargy Neurological Condition History of Pneumonia Reduced Cognition Dysphasia Diet Status: No change at this time Liquid Consistency and Strategies for Safe Swallow: Liquid Intake Recommendation: NPO Solid Food Consistency: Dietary Recommendations: NPO Additional Modifications to Solid Foods: Pt seen for bedside dysphagia evaluation. Pt trialed puree, thin liquid, honey thick liquid. He demonstrated overt clinical signs of aspiration throughout trials (wet, gurgly cough; increased work of breathing). Recommend continue NPO status at this time. Recommend precautions to reduce risk of microaspiration- elevate head of bed at least 30 degrees and ensure frequent oral care. PLATE GLASS GRINDER to re-evaluate when appropriate. Oral Medication Intake: NPO Please contact the pharmacy regarding appropriate crushable or liquid drug formulations that are available whenever modified delivery is recommended. Supervision While Eating and Drinking for Safe Swallow: PO with PLATE GLASS GRINDER Recommendation for Speech: Inpatient Speech Therapy Journeyman Carpenter Clinican/Clinical Fellow: No Supervisory Statement: I have reviewed and agree with the student/clinical fellow's documentation: N/A Speech Language Pathologist: Ericka Marie M.A., CCC-PLATE GLASS GRINDER
[2023-02-23 19:55] LABS: Glucose, Whole Blood 112 mg/dL (60-115)
[2023-02-24] VITALS: BP 144/73; PULSE 87; RESP 15; TEMP 36.6; O2SAT 93
[2023-02-24] MEDS: vancomycin HCL 1,000 MG in 0.9 % Sodium Chloride 250 ML 270 MG IV ×2 (00:18→12:55)
[2023-02-24 04:00] VITALS: BP 148/71; PULSE 83; RESP 17; TEMP 36.9; O2SAT 99
[2023-02-24 06:40] LABS: Creatinine Clr Calc Pharmacy 95.8; Estimated Glomerular Filt Rate > 60
[2023-02-24 07:53] VITALS: BP 122/66; PULSE 84; RESP 18; TEMP 36.8; O2SAT 98
[2023-02-24 08:31] LABS: Glucose, Whole Blood 68 mg/dL (60-115)
[2023-02-24] MEDS: Dextrose 50 % 25 GM/50 ML SYRINGE IVPUSH (09:27)
[2023-02-24] MEDS: Furosemide 40 MG/4 ML VIAL IVPUSH ×2 (09:39→17:35)
[2023-02-24 09:55] LABS: Glucose, Whole Blood 165 mg/dL (60-115)
[2023-02-24] MEDS: Dextrose 5 % and 0.45 % NaCl 1,000 ML 100 ML IVCONT ×2 (10:48→21:35)
[2023-02-24 11:28] LABS: Vancomycin Random 16.3 mcg/mL (15-20)
--- NOTE | 2023-02-24 11:34 | HO.PM.IMPN ---
Subjective Subjective Date of Service: 02/24/23 Interval History: f/u on respiratory failure likely pneumonia overall better, more awake, alert, no hypoxia Physical Exam Vital Signs: Vital Signs: Last Vital Signs Temp 98.2 F 02/24/23 07:53 Pulse 84 02/24/23 07:53 Resp 18 02/24/23 07:53 BP 122/66 02/24/23 07:53 Pulse Ox 98 02/24/23 07:53 O2 Del Method Nasal Cannula 02/24/23 07:53 O2 Flow Rate 2 02/24/23 07:53 Oxygen Flow Rate 4 02/22/23 22:45 BMI result Body Mass Index 26.5 Const: Other: General: Alert, not oriented Resp: No rhonchi, no wheeze, no rales CVS: S1,S2,RRR GI: +BS, NT, no distention Skin: No rash Neuro: motor grossly intact Psych: appropriate affect Objective Data Active Medications Acetaminophen (Acetaminophen 325 Mg Tablet) 650 mg PO Q6H PRN PRN Reason: Pain, Mild (Pain Scale 1-3) Acetaminophen (Acetaminophen 325 Mg Tablet) 650 mg PO Q4H PRN PRN Reason: Fever Or Pain Apixaban (Apixaban 5 Mg Tablet) 5 mg PO BID [facility] Last Admin: 02/24/23 09:33 Dose: Not Given Documented By: HEIDE Non-Admin Reason: NPO Aspirin (Aspirin 81 Mg Tab.Chew) 81 mg PO DAILY [facility] Last Admin: 02/24/23 09:33 Dose: Not Given Documented By: HEIDE Non-Admin Reason: NPO Atorvastatin Calcium (Atorvastatin Calcium 10 Mg Tablet) 10 mg PO DAILY [facility] Last Admin: 02/24/23 09:33 Dose: Not Given Documented By: HEIDE Non-Admin Reason: NPO Bisacodyl (Bisacodyl 10 Mg Supp.Rect) 10 mg [place] DAILY PRN PRN Reason: FOR NO BM IN 3 DAYS Carvedilol (Carvedilol 6.25 Mg Tablet) 6.25 mg PO BID [facility]; Protocol Last Admin: 02/24/23 09:33 Dose: Not Given Documented By: HEIDE Non-Admin Reason: NPO Dextrose (Dextrose 50 % 25 Gm/50 Ml Syringe) 25 gm IVPUSH Q15M PRN; Protocol PRN Reason: per Hypoglycemia Standing Ord. Last Admin: 02/24/23 09:27 Dose: 25 gm Documented By: HEIDE Docusate Sodium (Docusate Sodium 100 Mg Capsule) 100 mg PO DAILY PRN PRN Reason: Constipation Furosemide (Furosemide 40 Mg/4 Ml Vial) 40 mg IVPUSH BID@0900,1800 [facility]; Protocol Last Admin: 02/24/23 09:39 Dose: 40 mg Documented By: HEIDE Glucose (Glucose Gel 15 Gm Gel..Gram.) 15 gm PO Q15M PRN; Protocol PRN Reason: per Hypoglycemia Standing Ord. Vancomycin HCl 1,000 mg/ (Sodium Chloride) 270 mls @ 270 mls/hr IV Q12H [facility] Last Infusion: 02/24/23 01:34 Dose: Infused Documented By: PIETER Dextrose/Sodium Chloride (D51/2ns) 1,000 mls @ 100 mls/hr IVCONT .Q10H [facility] Last Admin: 02/24/23 10:48 Dose: 100 mls/hr Documented By: FRANKIE Insulin Glargine (Insulin Glargine,Hum.Rec.Anlog 100 Unit/Ml 10 Ml Vial) 18 unit SUBCUT DAILY [facility] Last Admin: 02/24/23 09:33 Dose: Not Given Documented By: HEIDE Non-Admin Reason: NPO Insulin Human Lispro (Insulin Lispro 100 Unit/Ml 3 Ml Vial) 0 unit SUBCUT QIDACHS [facility]; Protocol Last Admin: 02/24/23 09:03 Dose: Not Given Documented By: FRANKIE Non-Admin Reason: No Insulin Coverage Loperamide HCl (Loperamide Hcl 2 Mg Capsule) 2 mg PO Q3H PRN PRN Reason: Loose Stool Magnesium Hydroxide (Milk Of Magnesia 30 Ml Oral.Susp) 30 ml PO BEDTIME PRN PRN Reason: FOR NO BM IN 3 DAYS Multivitamins/Vitamin C (Multivitamin Tablet) 1 tab PO DAILY [facility] Last Admin: 02/24/23 09:33 Dose: Not Given Documented By: HEIDE Non-Admin Reason: NPO Ondansetron HCl (Ondansetron Hcl 4 Mg/2 Ml Vial) 4 mg IVPUSH Q8H PRN PRN Reason: Nausea and Vomiting Pharmacy Consult (Consult Rx Vancomycin Dosing) 1 each MISCELLANE DAILY PRN PRN Reason: Consult order Polyethylene Glycol (Polyethylene Glycol 3350 17 Gm Powd.Pack) 17 gm PO Q2D [facility] Last Admin: 02/23/23 10:21 Dose: Not Given Documented By: MICHAEL Non-Admin Reason: NPO Senna (Sennosides 8.6 Mg Tablet) 17.2 mg PO BEDTIME [facility] Last Admin: 02/23/23 20:27 Dose: Not Given Documented By: VICK Non-Admin Reason: NPO Sodium Biphosphate/Sodium Phosphate (Sodium Phosphate,[place]-Dibasic 133 Ml Enema) 118 ml [place] BEDTIME PRN PRN Reason: FOR NO BM IN 3 DAYS Tamsulosin HCl (Tamsulosin Hcl 0.4 Mg Capsule) 0.4 mg PO DAILY [facility] Last Admin: 02/24/23 09:33 Dose: Not Given Documented By: HEIDE Non-Admin Reason: NPO Vitamin D (Cholecalciferol (Vitamin D3) 25 Mcg Tablet) 50 mcg PO DAILY [facility] Last Admin: 02/24/23 09:33 Dose: Not Given Documented By: HEIDE Non-Admin Reason: NPO Labs 02/23/23 05:58 02/24/23 06:04 Labs: Laboratory Results - last 24 hr 02/23/23 02/23/23 02/23/23 07:45 15:39 19:50 Hold Purple Top Estim Creat Clear Calc Estimated GFR POC Glucose 112 112 Random Vancomycin Respiratory Panel [place] See Note Adenovirus (Rapid PCR) Not Detected B.pert (TEM-PCR) Not Detected B.parapertussis DNA PCR Not Detected C. pneumoniae DNA (PCR) Not Detected Coronavirus OC43 (PCR) Not Detected Coronavirus HKU1 (PCR) Not Detected Coronavirus 229E (PCR) Not Detected Coronavirus NL63 (PCR) Not Detected Human Metapneumovir PCR Not Detected Influenza A (RT-PCR) Not Detected Influenza B (RT-PCR) Not Detected M. pneumoniae (PCR) Not Detected Parainfluenza 1 (PCR) Not Detected Parainfluenza 2 (PCR) Not Detected Parainfluenza 3 (PCR) Not Detected Parainfluenza 4 (PCR) Not Detected RSV (PCR) Not Detected Entero/Rhino (PCR) Detected A SARS-CoV-2 RNA (RT-PCR) Not Detected 02/24/23 02/24/23 02/24/23 06:04 07:51 09:48 Hold Purple Top SEE NOTE Estim Creat Clear Calc 95.8 Estimated GFR > 60 POC Glucose 68 165 H Random Vancomycin Respiratory Panel [place] Adenovirus (Rapid PCR) B.pert (TEM-PCR) B.parapertussis DNA PCR C. pneumoniae DNA (PCR) Coronavirus OC43 (PCR) Coronavirus HKU1 (PCR) Coronavirus 229E (PCR) Coronavirus NL63 (PCR) Human Metapneumovir PCR Influenza A (RT-PCR) Influenza B (RT-PCR) M. pneumoniae (PCR) Parainfluenza 1 (PCR) Parainfluenza 2 (PCR) Parainfluenza 3 (PCR) Parainfluenza 4 (PCR) RSV (PCR) Entero/Rhino (PCR) SARS-CoV-2 RNA (RT-PCR) 02/24/23 10:53 Hold Purple Top Estim Creat Clear Calc Estimated GFR POC Glucose Random Vancomycin 16.3 Respiratory Panel [place] Adenovirus (Rapid PCR) B.pert (TEM-PCR) B.parapertussis DNA PCR C. pneumoniae DNA (PCR) Coronavirus OC43 (PCR) Coronavirus HKU1 (PCR) Coronavirus 229E (PCR) Coronavirus NL63 (PCR) Human Metapneumovir PCR Influenza A (RT-PCR) Influenza B (RT-PCR) M. pneumoniae (PCR) Parainfluenza 1 (PCR) Parainfluenza 2 (PCR) Parainfluenza 3 (PCR) Parainfluenza 4 (PCR) RSV (PCR) Entero/Rhino (PCR) SARS-CoV-2 RNA (RT-PCR) Microbiology Microbiology Results: Microbiology 02/22/23 22:55 Blood Culture - Preliminary Blood - Venous No growth after 24 hours. 02/22/23 22:55 Blood Culture - Preliminary Blood - Venous No growth after 24 hours. Assessment and Plan (1) HAP (hospital-acquired pneumonia): Status: Acute Plan 87-year-old male who comes into the hospital from long term with hypoxia # acute hypoxic respiratory failure d/t and pna, treat underlying issues # acute diastolic CHF exacerbation, treated with IV diuretics, imrpved, echo EF 60%, clinically compensated, stop Lasix. # Healthcare acquired pneumonia, likely aspiration type, continue IV Abx (Ceftriaxone + Vancomycin), follow culture, repeat WBC in the morning. NPO until passes swallow eval # hypertension, BP normal without meds # diabetes - hold metformin - start low-dose sliding scale insulin # Chronic Afib - continue Eliquis, and carvedilol DVT ppx: Eliquis need for inpatient: PNA on IV Abx Time Spent With Patient Time: Total time managing care of this patient today ____ minutes. Quality Stroke Does the patient have a stroke diagnosis?: No VTE Prior VTE?: No VTE Risk Level:: Medical - moderate - high VTE Device Contraindication: Treatment Not Indicated VTE Drug Contraindication: N/A - Med Ordered
[2023-02-24 11:48] VITALS: BP 133/60; PULSE 77; RESP 18; TEMP 36.3; O2SAT 99
[2023-02-24 12:03] LABS: Glucose, Whole Blood 153 mg/dL (60-115)
[2023-02-24] MEDS: cefTRIAXone sodium 1 GM in 0.9 % Sodium Chloride 50 ML IV (12:17)
[2023-02-24 15:52] VITALS: BP 159/63; PULSE 84; RESP 17; TEMP 36.5; O2SAT 99
[2023-02-24 16:41] LABS: Glucose, Whole Blood 127 mg/dL (60-115)
[2023-02-24 19:13] VITALS: BP 140/65; PULSE 73; RESP 17; TEMP 36.2; O2SAT 98
[2023-02-24 20:48] LABS: Glucose, Whole Blood 147 mg/dL (60-115)
[2023-02-25] VITALS (7 sets, daily range): BP systolic 116–141; BP diastolic 56–80; PULSE 75–89; RESP 18–20; TEMP 36.1–36.4; O2SAT 93–100
[2023-02-25] MEDS: vancomycin HCL 1,000 MG in 0.9 % Sodium Chloride 250 ML 270 MG IV (01:21)
[2023-02-25] MEDS: Dextrose 5 % and 0.45 % NaCl 1,000 ML 100 ML IVCONT (05:39)
[2023-02-25 07:38] LABS: Creatinine Clr Calc Pharmacy 60.2; Estimated Glomerular Filt Rate > 60
[2023-02-25 07:53] LABS: Glucose, Whole Blood 147 mg/dL (60-115)
[2023-02-25] MEDS: Furosemide 40 MG/4 ML VIAL IVPUSH (08:14)
--- NOTE | 2023-02-25 09:05 | HO.PM.IMPN ---
Subjective Subjective Date of Service: 02/25/23 Interval History: f/u on respiratory failure likely entero/rhino virus better, hypoxia resolved. Physical Exam Vital Signs: Vital Signs: Last Vital Signs Temp 97.3 F 02/25/23 07:41 Pulse 75 02/25/23 07:41 Resp 18 02/25/23 07:41 BP 129/65 02/25/23 07:41 Pulse Ox 100 02/25/23 07:41 O2 Del Method Nasal Cannula 02/25/23 07:41 O2 Flow Rate 2 02/25/23 07:41 Oxygen Flow Rate 4 02/22/23 22:45 BMI result Body Mass Index 26.5 Const: Other: General: Alert, not oriented Resp: No rhonchi, no wheeze, no rales CVS: S1,S2,RRR GI: +BS, NT, no distention Skin: No rash Neuro: motor grossly intact Psych: appropriate affect Objective Data Active Medications Acetaminophen (Acetaminophen 325 Mg Tablet) 650 mg PO Q6H PRN PRN Reason: Pain, Mild (Pain Scale 1-3) Acetaminophen (Acetaminophen 325 Mg Tablet) 650 mg PO Q4H PRN PRN Reason: Fever Or Pain Apixaban (Apixaban 5 Mg Tablet) 5 mg PO BID [facility] Last Admin: 02/25/23 08:09 Dose: Not Given Documented By: HEIDE Non-Admin Reason: NPO Aspirin (Aspirin 81 Mg Tab.Chew) 81 mg PO DAILY [facility] Last Admin: 02/25/23 08:09 Dose: Not Given Documented By: HEIDE Non-Admin Reason: NPO Atorvastatin Calcium (Atorvastatin Calcium 10 Mg Tablet) 10 mg PO DAILY [facility] Last Admin: 02/25/23 08:09 Dose: Not Given Documented By: HEIDE Non-Admin Reason: NPO Bisacodyl (Bisacodyl 10 Mg Supp.Rect) 10 mg [place] DAILY PRN PRN Reason: FOR NO BM IN 3 DAYS Carvedilol (Carvedilol 6.25 Mg Tablet) 6.25 mg PO BID [facility]; Protocol Last Admin: 02/25/23 08:09 Dose: Not Given Documented By: HEIDE Non-Admin Reason: NPO Dextrose (Dextrose 50 % 25 Gm/50 Ml Syringe) 25 gm IVPUSH Q15M PRN; Protocol PRN Reason: per Hypoglycemia Standing Ord. Last Admin: 02/24/23 09:27 Dose: 25 gm Documented By: HEIDE Docusate Sodium (Docusate Sodium 100 Mg Capsule) 100 mg PO DAILY PRN PRN Reason: Constipation Furosemide (Furosemide 40 Mg/4 Ml Vial) 40 mg IVPUSH BID@0900,1800 [facility]; Protocol Last Admin: 02/25/23 08:14 Dose: 40 mg Documented By: HEIDE Glucose (Glucose Gel 15 Gm Gel..Gram.) 15 gm PO Q15M PRN; Protocol PRN Reason: per Hypoglycemia Standing Ord. Vancomycin HCl 1,000 mg/ (Sodium Chloride) 270 mls @ 270 mls/hr IV Q12H [facility] Last Infusion: 02/25/23 02:36 Dose: Infused Documented By: MISTY Dextrose/Sodium Chloride (D51/2ns) 1,000 mls @ 100 mls/hr IVCONT .Q10H [facility] Last Admin: 02/25/23 05:39 Dose: 100 mls/hr Documented By: MISTY Ceftriaxone Sodium 1 gm/ (Sodium Chloride) 50 mls @ 100 mls/hr IV Q24H [facility] Last Infusion: 02/24/23 12:47 Dose: Infused Documented By: FRANKIE Insulin Glargine (Insulin Glargine,Hum.Rec.Anlog 100 Unit/Ml 10 Ml Vial) 18 unit SUBCUT DAILY [facility] Last Admin: 02/25/23 08:09 Dose: Not Given Documented By: HEIDE Non-Admin Reason: NPO Insulin Human Lispro (Insulin Lispro 100 Unit/Ml 3 Ml Vial) 0 unit SUBCUT QIDACHS [facility]; Protocol Last Admin: 02/25/23 08:08 Dose: Not Given Documented By: HEIDE Non-Admin Reason: NPO Loperamide HCl (Loperamide Hcl 2 Mg Capsule) 2 mg PO Q3H PRN PRN Reason: Loose Stool Magnesium Hydroxide (Milk Of Magnesia 30 Ml Oral.Susp) 30 ml PO BEDTIME PRN PRN Reason: FOR NO BM IN 3 DAYS Multivitamins/Vitamin C (Multivitamin Tablet) 1 tab PO DAILY [facility] Last Admin: 02/25/23 08:09 Dose: Not Given Documented By: HEIDE Non-Admin Reason: NPO Ondansetron HCl (Ondansetron Hcl 4 Mg/2 Ml Vial) 4 mg IVPUSH Q8H PRN PRN Reason: Nausea and Vomiting Pharmacy Consult (Consult Rx Vancomycin Dosing) 1 each MISCELLANE DAILY PRN PRN Reason: Consult order Polyethylene Glycol (Polyethylene Glycol 3350 17 Gm Powd.Pack) 17 gm PO Q2D [facility] Last Admin: 02/25/23 08:09 Dose: Not Given Documented By: HEIDE Non-Admin Reason: NPO Senna (Sennosides 8.6 Mg Tablet) 17.2 mg PO BEDTIME [facility] Last Admin: 02/24/23 21:29 Dose: Not Given Documented By: MISTY Non-Admin Reason: NPO Sodium Biphosphate/Sodium Phosphate (Sodium Phosphate,[place]-Dibasic 133 Ml Enema) 118 ml [place] BEDTIME PRN PRN Reason: FOR NO BM IN 3 DAYS Tamsulosin HCl (Tamsulosin Hcl 0.4 Mg Capsule) 0.4 mg PO DAILY [facility] Last Admin: 02/25/23 08:09 Dose: Not Given Documented By: HEIDE Non-Admin Reason: NPO Vitamin D (Cholecalciferol (Vitamin D3) 25 Mcg Tablet) 50 mcg PO DAILY [facility] Last Admin: 02/25/23 08:09 Dose: Not Given Documented By: HEIDE Non-Admin Reason: NPO Labs 02/23/23 05:58 02/25/23 06:01 Labs: Laboratory Results - last 24 hr 02/24/23 02/24/23 02/24/23 09:48 10:53 11:50 Hold Purple Top Estim Creat Clear Calc Estimated GFR POC Glucose 165 H 153 H Random Vancomycin 16.3 02/24/23 02/24/23 02/25/23 16:28 20:22 06:01 Hold Purple Top SEE NOTE Estim Creat Clear Calc 60.2 Estimated GFR > 60 POC Glucose 127 H 147 H Random Vancomycin 02/25/23 07:40 Hold Purple Top Estim Creat Clear Calc Estimated GFR POC Glucose 147 H Random Vancomycin Microbiology Microbiology Results: Microbiology 02/22/23 22:55 Blood Culture - Preliminary Blood - Venous No growth after 48 hours. 02/22/23 22:55 Blood Culture - Preliminary Blood - Venous No growth after 48 hours. Assessment and Plan (1) HAP (hospital-acquired pneumonia): Status: Acute Plan 87-year-old male who comes into the hospital from [place] with hypoxia # acute hypoxic respiratory failure d/t and pna, from likely entero/rhino virus, hypoxia resovled, wean off O2 # acute diastolic CHF exacerbation, treated with IV diuretics, imrpved, echo EF 60%, clinically compensated, stop Lasix. # Healthcare acquired pneumonia, likely aspiration type on top of rhino/entero virus continue IV Abx (Ceftriaxone + Vancomycin), negative cultures. Stop Vanco, continue Ceftriaxone. # hypertension, BP normal without meds # diabetes - hold metformin - start low-dose sliding scale insulin # Chronic Afib--lovenox while off eliquis DVT ppx: Lovenox while off eliquis need for inpatient: PNA on IV Abx Time Spent With Patient Time: Total time managing care of this patient today ____ minutes. Quality Stroke Does the patient have a stroke diagnosis?: No VTE Prior VTE?: No VTE Risk Level:: Medical - moderate - high VTE Device Contraindication: Treatment Not Indicated VTE Drug Contraindication: N/A - Med Ordered
[2023-02-25] MEDS: Enoxaparin Sodium 80 MG/0.8 ML SYRINGE 70 MG SUBCUT (09:50)
--- NOTE | 2023-02-25 11:43 | MHC.SL.SWA ---
Speech Pathologist Impression: Risk of Aspiration Due to: Lethargy Neurological Condition History of Pneumonia Reduced Cognition Dysphasia Diet Status: Recommend START diet of Puree (NDD1) with HONEY THICK liquid by tsp only, pills Crushed in Puree. Liquid Consistency and Strategies for Safe Swallow: Liquid Intake Recommendation: Honey Thick Liquid Intake Strategies: Small Sips No Straws Liquids by Teaspoon Only Solid Food Consistency: Dietary Recommendations: Pureed (NDD1) Additional Modifications to Solid Foods: Patient must have head of bed at 90 degrees during all PO administration. Patient will need to be carefully positioned for meals as he currently lists to one side (R). DO NOT ATTEMPT if patient is lethargic or not engaged in meal. Liquids by TSP only, NO STRAWS. Discontinue if patient evidences clinical signs of aspiration (coughing, throat clearing, wet voice, increased upper airway noise, drop in 02 sats without rebound). Oral Medication Intake: NPO Please contact the pharmacy regarding appropriate crushable or liquid drug formulations that are available whenever modified delivery is recommended. Compensatory Strategies and Precautions to be Taken for Safe Swallow: Sitting Upright (90 deg) No Straw Liquids from Spoon Small Bites and Sips Alternate Liquids/Solids Rate of Ingestion Change Supervision While Eating and Drinking for Safe Swallow: Total Assistance (1:1) Foods to Avoid: Mixed consistencies Swallowing Recommended Treatments: Compens. Strategy Educat. Recommendation for Speech: Inpatient Speech Therapy Comment: Called in to do repeat assessment on patient who did not pass swallow evaluation 02/23, has been NPO for multiple days. Patient during assessment had waxing/waning alertness, did not follow directions or cooperate with oral [facility] assessment ( Get away from me! and swatted at [employer]), but accepted trials of liquid and food. Patient took tsp amount of water by tsp, with water deposited in mouth as patient did not close/strip spoon, but then managed to contain bolus orally, produced a timely oral phase and mild delay initiating swallow with decreased laryngeal elevation palpated, no clinical signs of aspiration. Patient then given tsp of thickened apple juice by spoon, with mild delay of oral phase, mild delay of swallow, no clinical signs of aspiration. Patient given pudding, with disorganized lingual pattern noted, mildly prolonged oral phase, mild delay of swallow, good oral clearance. Puree is reportedly patient's baseline, with Thin Liquids. Given noted delay of swallow, maladaptive oral pattern, likely aspiration, recommend START diet of Puree (NDD1) with HONEY THICK liquid by tsp only, pills Crushed in Puree. Patient will need to be carefully positioned for meals as he currently lists to one side (R). DO NOT ATTEMPT if patient is lethargic, not engaged in meal, strict aspiration precautions apply. SULMA ALFONSO notified of recommendations by secure text, RN in person. [employer] will continue to follow. Frequency/Duration: Date Range for Service Req: Timeline to reassess: Tobacco Grader Clinican/Clinical Fellow: No Supervisory Statement: I have reviewed and agree with the student/clinical fellow's documentation: N/A Speech Language Pathologist: Fior Mays M.A., CCC-[employer]
[2023-02-25 11:46] LABS: Glucose, Whole Blood 179 mg/dL (60-115)
[2023-02-25] MEDS: Insulin Lispro 100 UNIT/ML 3 ML VIAL SUBCUT ×2 (12:09→17:15)
[2023-02-25] MEDS: cefTRIAXone sodium 1 GM in 0.9 % Sodium Chloride 50 ML IV (12:10)
[2023-02-25 13:00] LABS: Vancomycin Random 19.3 mcg/mL (15-20)
[2023-02-25 16:50] LABS: Glucose, Whole Blood 195 mg/dL (60-115)
[2023-02-25 20:35] LABS: Glucose, Whole Blood 132 mg/dL (60-115)
[2023-02-25] MEDS: carvediloL 6.25 MG TABLET PO (21:58)
[2023-02-25] MEDS: Apixaban 5 MG TABLET PO (21:58)
[2023-02-25] MEDS: Sennosides 8.6 MG TABLET 17.2 MG PO (21:58)
[2023-02-26 03:50] VITALS: BP 119/55; PULSE 79; RESP 18; TEMP 36.6; O2SAT 95
[2023-02-26 07:24] VITALS: BP 122/56; PULSE 81; RESP 20; TEMP 36.6; O2SAT 98
[2023-02-26 07:37] LABS: Glucose, Whole Blood 132 mg/dL (60-115)
[2023-02-26] MEDS: Cholecalciferol (Vitamin D3) 25 MCG TABLET 50 MCG PO (09:14)
[2023-02-26] MEDS: carvediloL 6.25 MG TABLET PO (09:14)
[2023-02-26] MEDS: Insulin Glargine,Hum.rec.anlog 100 UNIT/ML 10 ML VIAL 18 UNIT SUBCUT (09:14)
[2023-02-26] MEDS: Apixaban 5 MG TABLET PO (09:15)
[2023-02-26] MEDS: Tamsulosin HCL 0.4 MG CAPSULE PO (09:15)
[2023-02-26] MEDS: Atorvastatin Calcium 10 MG TABLET PO (09:15)
[2023-02-26] MEDS: Aspirin 81 MG TAB.CHEW PO (09:15)
[2023-02-26] MEDS: Multivitamin TABLET 1 TAB PO (09:15)
[2023-02-26 10:05] LABS: Hematocrit 41.9 % (42.0-52.0); Hemoglobin 12.9 g/dl (14.0-18.0); Mean Corpuscular HGB Conc 30.8 g/dl (31.0-36.0); Mean Corpuscular Hemoglobin 27.7 pg (27.0-33.0); Mean Corpuscular Volume 89.9 fL (80.0-98.0); Platelet Count 188 X10*3/uL (160-400); Red Blood Count 4.66 X10*6/uL (4.60-5.80); Red Cell Distribution Width 14.3 % (11.0-16.0); White Blood Count 7.2 X10*3/uL (4.8-10.8)
[2023-02-26 10:16] LABS: Creatinine Clr Calc Pharmacy 83.8; Estimated Glomerular Filt Rate > 60
[2023-02-26 10:17] LABS: Anion Gap 16 (12-20); Blood Urea Nitrogen 12 mg/dL (9-16); Calcium 8.3 mg/dL (8.4-10.2); Carbon Dioxide 27 mmol/L (22-29); Chloride 99 mmol/L (96-108); Creatinine Clr Calc Pharmacy 86.9; Estimated Glomerular Filt Rate > 60; Glucose Random 193 mg/dL (60-115); Potassium 3.6 mmol/L (3.3-5.1); Sodium 138 mmol/L (135-145)
--- NOTE | 2023-02-26 10:34 | MHC.CM.PN ---
EMR reviewed and per MD rounds, pt is medically cleared for D/C due to needing a speech therapy follow up, and continued treatment for pneumonia requiring IV abx. Pt will likely D/C back to [facility] in the next day or 2. CM will continue to follow.
[2023-02-26 11:32] LABS: Glucose, Whole Blood 229 mg/dL (60-115)
[2023-02-26 12:00] VITALS: BP 106/51; PULSE 69; RESP 20; TEMP 36.5; O2SAT 100
--- NOTE | 2023-02-26 12:29 | MHC.SL.SWA ---
Speech Pathologist Impression: Risk of aspiration, oropharyngeal dysphagia Risk of Aspiration Due to: Lethargy Neurological Condition History of Pneumonia Reduced Cognition Dysphasia Diet Status: Recommend continue diet of Puree (NDD1) with HONEY THICK liquid by tsp only, pills Crushed in Puree. Liquid Consistency and Strategies for Safe Swallow: Liquid Intake Recommendation: Honey Thick Liquid Intake Strategies: Small Sips No Straws Liquids by Teaspoon Only Solid Food Consistency: Dietary Recommendations: Pureed (NDD1) Additional Modifications to Solid Foods: Patient must have head of bed at 90 degrees during all PO administration. Patient will need to be carefully positioned for meals as he currently lists to one side (R). DO NOT ATTEMPT if patient is lethargic or not engaged in meal. Liquids by TSP only, NO STRAWS. Discontinue if patient evidences clinical signs of aspiration (coughing, throat clearing, wet voice, increased upper airway noise, drop in 02 sats without rebound). HOUSEMAN will continue to follow to monitor tolerance and re-assess potential for upgrade (liquid consistency) if appropriate. Oral Medication Intake: Crushed with Puree Please contact the pharmacy regarding appropriate crushable or liquid drug formulations that are available whenever modified delivery is recommended. Compensatory Strategies and Precautions to be Taken for Safe Swallow: Sitting Upright (90 deg) No Straw Liquids from Spoon Small Bites and Sips Alternate Liquids/Solids Rate of Ingestion Change Supervision While Eating and Drinking for Safe Swallow: Total Assistance (1:1) Foods to Avoid: Mixed consistencies Swallowing Recommended Treatments: Compens. Strategy Educat. Recommendation for Speech: Inpatient Speech Therapy Signs And Displays Salesperson Clinican/Clinical Fellow: No Supervisory Statement: I have reviewed and agree with the student/clinical fellow's documentation: N/A Speech Language Pathologist: Ericka Marie M.A., [facility]
[2023-02-26] MEDS: cefTRIAXone sodium 1 GM in 0.9 % Sodium Chloride 50 ML IV (12:50)
[2023-02-26] MEDS: Insulin Lispro 100 UNIT/ML 3 ML VIAL SUBCUT (12:50)
--- NOTE | 2023-02-26 13:32 | PM.DS ---
DS: Providers Provider Date of Service: 02/26/23 Date of admission: 02/23/23 01:19 Primary care physician: David Mckeon MD DS: Diagnosis Discharge Diagnosis (1) HAP (hospital-acquired pneumonia): Status: Acute DS: Summary Hospital Course Hospital Course: Chief Complaint: hypoxic 87-year-old male with past medical history of type 2 diabetes, CAD, peripheral vascular disease, history of thromboembolism, Alzheimer's disease, BPH, AFib, HTN, depression, CVA, nonverbal at baseline, a long term resident comes into the hospital after patient found to be hypoxic and having low oxygen saturation. He was noted to be short of breath, they checked his O2 and was 80% on room air. He also has had low appetite and has not been eating. Unable to get his other review of systems as patient is nonverbal and has dementia at baseline and not able to communicate. On arrival to the ED patient has a temp of a 100.9 degrees, heart rate of 90, respiratory of 22, blood pressure 116/53 . Placed on 4 L of oxygen Labs are significant for WBC count of 16.5, hemoglobin of 12.5, hematocrit 39.1, BUN of 21, lactic acid of 3.5, BNP of 899 with previously 300. VBG showed a pH of 7.4, troponin of 47 COVID, influenza, negative CTA inadequate in assessment of the lungs due to motion Patient will be admitted for further management Hospital course: Patient presented with acute hypoxic respiratory failure and was failure and work up revealed pneumonia, and question of heart failure. He was intiated on broad spectrum antibiotics for the pneumonia, oxgyen was use to treat hypoxia. His initial WBC was 17 and has since come down to 7 as of today. His oxygen level has improved marked and presently satting 100 on 2 liters, he is brething comfortably. It is of note that respiratory panel was positive Rhino/enterovirus which likely contributed to hypoxia and at this point doesn't need any specific treatment. As for possibility of heart failure, he likely has chronic diastolic heart failure, he was treated briefly with IV Lasix, which he doesn't need at this time. Echocardiogram showed EF of 60 to 65. Patient will retunr to the [facility]. He will be prescribed Ceftin 500 mg twice daily for 3 more days to complete treatment for pneumonia. Also patient has some dysphagia and was evaluated by Speech pathology with recommendation as follow: Recommend continue diet of Puree (NDD1) with HONEY THICK liquid by tsp only, pills Crushed in Puree. Liquid Consistency and Strategies for Safe Swallow: Liquid Intake Recommendation: Honey Thick Liquid Intake Strategies: Small SipsNo Straws Liquids by Teaspoon Only Solid Food Consistency: Dietary Recommendations: Pureed (NDD1) Additional Modifications to Solid Foods: Patient must have head of bed at 90 degrees during all PO administration. Patient will need to be carefully positioned for meals as he currently lists to one side (R). DO NOT ATTEMPT if patient is lethargic or not engaged in meal. Liquids by TSP only, NO STRAWS. Discontinue if patient evidences clinical signs of aspiration (coughing, throat clearing, wet voice, increased upper airway noise, drop in 02 sats without rebound). Time Spent with Patient Time attestation: Total time managing care of this patient today ____ minutes. Discharge coordination time: Greater than 30 minutes Quality: Safe Use of Opioids Does Pt have an Active Cancer Diagnosis on the Problem List?: No Quality: Stroke Does the patient have a stroke diagnosis?: No Physical Exam Vital Signs: Vital Signs: Last Vital Signs Temp 97.7 F 02/26/23 12:00 Pulse 69 02/26/23 12:00 Resp 20 02/26/23 12:00 BP 106/51 L 02/26/23 12:00 Pulse Ox 100 02/26/23 12:00 O2 Del Method Nasal Cannula 02/26/23 12:00 O2 Flow Rate 2 02/26/23 12:00 Oxygen Flow Rate 4 02/22/23 22:45 BMI result Body Mass Index 26.5 DS: Data Data Completed and Pending Completed studies during hospitalization [Text1]: Procedures Introduction of Remdesivir Anti-infective into Peripheral Vein, Percutaneous Approach, [employer] 5 (06/16/21) Labs on day of discharge: Laboratory Results - last 24 hr 02/25/23 02/25/23 02/26/23 16:42 20:29 07:30 WBC RBC Hgb Hct MCV MCH MCHC RDW Plt Count MPV Absolute Nucleated RBC Nucleated RBC % (auto) Sodium Potassium Chloride Carbon Dioxide Anion Gap BUN Creatinine Estim Creat Clear Calc Estimated GFR POC Glucose 195 H 132 H 132 H Random Glucose Calcium 02/26/23 02/26/23 02/26/23 09:28 09:29 11:28 WBC 7.2 RBC 4.66 Hgb 12.9 L Hct 41.9 L MCV 89.9 MCH 27.7 MCHC 30.8 L RDW 14.3 Plt Count 188 MPV 9.0 L Absolute Nucleated RBC 0.000 Nucleated RBC % (auto) 0.0 Sodium 138 Potassium 3.6 D Chloride 99 Carbon Dioxide 27 Anion Gap 16 BUN 12 Creatinine 0.54 0.56 Estim Creat Clear Calc 86.9 83.8 Estimated GFR > 60 > 60 POC Glucose 229 H Random Glucose 193 H Calcium 8.3 L Preliminary micro results at discharge 02/22/23 22:55 Blood Culture - Preliminary Blood - Venous No growth after 48 hours. 02/22/23 22:55 Blood Culture - Preliminary Blood - Venous No growth after 48 hours. Discharge Plan Discharge Anticipated Discharge Date/Time: 02/26/23 13:12 Patient Disposition: Xfer SNF Discharge Diagnosis: Acute respiratory failure, pneumonia and Rhinovirus Referrals: David Mckeon MD [Primary Care Provider] - 1 Week Discharge Medications: New cefuroxime axetil 500 mg tablet 500 mg PO BID 3 Days Qty: 6 0RF Continued tamsulosin 0.4 mg Capsule 0.4 mg PO DAILY apixaban 5 mg Tablet 5 mg PO BID aspirin 81 mg Tablet,Chewable 81 mg PO DAILY carvedilol 6.25 mg Tablet 6.25 mg PO BID cholecalciferol (vitamin D3) 50 mcg (2,000 unit) Tablet 50 mcg PO DAILY lisinopril 2.5 mg Tablet 2.5 mg PO DAILY simvastatin 20 mg Tablet 20 mg PO BEDTIME sennosides [senna] 8.6 mg Tablet 17.2 mg PO BEDTIME metformin 500 mg Tablet 500 mg BEDTIME metformin 1,000 mg Tablet 1,000 mg PO DAILY insulin glargine 100 unit/mL Solution 18 unit SUBCUT DAILY dexamethasone 6 mg tablet 6 mg PO DAILY Qty: 7 0RF multivitamin Tablet 1 tab PO DAILY acetaminophen 325 mg Tablet 650 mg PO BID PRN (Reason: Fever Or Pain) acetaminophen 325 mg Tablet 650 mg PO Q4H PRN (Reason: Fever Or Pain) loperamide 2 mg Tablet 2 mg PO Q3H PRN (Reason: Loose Stool) Rx Instructions: administer after each loose stool until symptoms controlled; do not exceed 8 mg per 24 hrs magnesium hydroxide 400 mg/5 mL Suspension 30 ml PO BEDTIME PRN (Reason: FOR NO BM IN 3 DAYS) bisacodyl 10 mg Suppository 10 mg HI DAILY PRN (Reason: FOR NO BM IN 3 DAYS) Fleet Enema 19-7 gram/118 mL Enema 118 ml HI BEDTIME PRN (Reason: FOR NO BM IN 3 DAYS) polyethylene glycol 3350 17 gram/dose Powder 17 g PO Q2D Discharge Orders: Discharge Order (Routine); Ordered 02/26/23 Ordered By: Tyrel Headley Diet: Advance to usual diet Activity on Discharge: As tolerated Stand Alone Forms: Patient Portal Discharge page Care Plan Goals: Full recovery from pneumonia and rhinov/entero virus Health Concerns: pneumonia rhinovirus and enterovirus Plan of Treatment: You were treated for pneumonia and respiratory failure that needed oxygen supplementation. respiratory failure has resolved. You were also found to have entero/rhino virus and this doesn't need any specific treatment. You are to take Ceftin 500 mg to complete treatment for pneumonia. You no longer need treatment for heart failure Diet recommendation by Speech Pathology: Recommend continue diet of Puree (NDD1) with HONEY THICK liquid by tsp only, pills Crushed in Puree. Liquid Consistency and Strategies for Safe Swallow: Liquid Intake Recommendation: Honey Thick Liquid Intake Strategies: Small SipsNo Straws Liquids by Teaspoon Only Solid Food Consistency: Dietary Recommendations: Pureed (NDD1) Additional Modifications to Solid Foods: Patient must have head of bed at 90 degrees during all PO administration. Patient will need to be carefully positioned for meals as he currently lists to one side (R). DO NOT ATTEMPT if patient is lethargic or not engaged in meal. Liquids by TSP only, NO STRAWS. Discontinue if patient evidences clinical signs of aspiration (coughing, throat clearing, wet voice, increased upper airway noise, drop in 02 sats without rebound). Assessment: as abov
--- NOTE | 2023-02-26 13:54 | MHC.CM.PN ---
Second IMM given 02/26. Pts daughter/HCP Kajal notified. Pt is medically cleared for D/C back to the [facility]. D/C summary faxed to [facility] at # [phone]. Transport set up via BLS/[facility] at 3:30pm.
[2023-02-26 14:00] VITALS: O2SAT 96
[2023-02-27 16:03] LABS: Strep Pneumo Ag urine Not Detected (Not Detected)
--- NOTE | 2023-02-28 00:35 | P.CDIM_ITS ---
PROVIDER RESPONSE TEXT: To clarify, the appropriate diagnosis supported by the clinical indicators: Alzheimer's Dementia QUERY TEXT: PHYSICIAN'S DOCUMENTATION REQUEST Date of Query: 02/23/2023 10:46 AM EDT Patient Name: Enmanuel Stephenson Admit Date: 02/23/2023 Dear Tyrel Headley, A review of the medical record indicates additional documentation may be needed. Please review below and update the documentation accordingly. Clinical Indicators: Per ER Physician Documentation 02/22/23: altered/change in mental status, history of Alzheimer's disea se Per H&P 02/23/23: nonverbal at baseline Based on the above, could you clarify if any of the following, is the most likely etiology of the con fusion/altered mental status? Encephalopathy Indicate type such as metabolic, toxic, septic, alcoholic, hypertensive, etc. Alzheimer's Dementia Acute or subacute confusional state due to Specify known or suspected etiology Other (explain)Clinically unable to determine (explain)Thank you, Britni Jones RN Use of terms such as suspected, likely, concern for, or probable (associated with a specific diagnosi s that is being evaluated, monitored, or treated as if it exists) are acceptable and can be coded in the inpatient se tting, when documented at the time of discharge. Please use your independent medical judgment in providing your response. THIS QUERY IS PART OF THE PERMANENT MEDICAL RECORD
[2023-02-28 15:09] LABS: Legionella Ag Urine Not Detected (Not Detected)
== END 2023-02-26 16:20 | disposition intermediate care facility (04) | DRG 193 ==
LOC: HO.ED 23:26 → HO.EDOVER 02-23 01:42 → HO.IMC 02-23 06:57
PROVIDERS: Admitting Provider Internal Medicine; Emergency Provider Emergency Medicine; PCP Internal Medicine; Visit Provider Internal Medicine
DX: J18.9 Pneumonia, unspecified organism (principal); G93.41 Metabolic encephalopathy; I50.23 Acute on chronic systolic (congestive) heart failure; J96.01 Acute respiratory failure with hypoxia; I48.20 Chronic atrial fibrillation, unspecified; G30.9 Alzheimer's disease, unspecified; F02.80 Dementia in other diseases classified elsewhere, unspecified severity, without behavioral disturbance, psychotic disturbance, mood disturbance, and anxiety; I11.0 Hypertensive heart disease with heart failure; I25.10 Atherosclerotic heart disease of native coronary artery without angina pectoris; N40.0 Benign prostatic hyperplasia without lower urinary tract symptoms; Z66 Do not resuscitate; E11.51 Type 2 diabetes mellitus with diabetic peripheral angiopathy without gangrene; B97.89 Other viral agents as the cause of diseases classified elsewhere; B97.10 Unspecified enterovirus as the cause of diseases classified elsewhere; Z20.822 Contact with and (suspected) exposure to COVID-19; Z79.4 Long term (current) use of insulin; Z79.01 Long term (current) use of anticoagulants; Z79.82 Long term (current) use of aspirin; Z79.84 Long term (current) use of oral hypoglycemic drugs; Z79.899 Other long term (current) drug therapy
CPT/HCPCS: 36415; 71045; 71275; 80048; 80053; 80202; 82565; 82803; 82947; 83605; 83880; 84145; 84484; 85025; 85027; 87040; 87449; 87502; 87633; 87635; 87899; 92526; 92610; 93005; 93306; 99285; J0696; J1650; J1940; J3370; Q9957; Q9967

== ENCOUNTER 2023-02-23 01:19 | Outpatient (BNV) | payer MEDICARE, SELFPAY | END 2023-02-23 07:00 | PROVIDERS: Admitting Provider Internal Medicine; Emergency Provider Emergency Medicine; PCP Internal Medicine; Visit Provider Internal Medicine Cardiovascular Disease | DX: I35.0 Nonrheumatic aortic (valve) stenosis (principal) | CPT/HCPCS: 93306 ==

== ENCOUNTER → 2023-02-23 01:19 | Outpatient (BNV) | payer MEDICARE, SELFPAY | PROVIDERS: Admitting Provider Internal Medicine; Emergency Provider Emergency Medicine; Visit Provider Internal Medicine | DX: J18.9 Pneumonia, unspecified organism (principal); Y95 Nosocomial condition | CPT/HCPCS: 99223; 99232; 99239; 99499 ==

== ENCOUNTER 2023-04-03 08:38 | Outpatient (AMB) | payer MEDICARE, SELFPAY ==
--- NOTE | 2023-04-03 08:45 | A.OFFVIS_ITS ---
Intake Intake Visit Reasons: [employer]/ referral for PAD Intake Note: [employer] for PAD, [facility],Pt arrived on stretcher. per pt referral, Left LE TOPHER's done at facility and resulted at 0.4. Also referral notes state Left foot 3rd toe eschar and Left heel has blister w/ serous fluid. Right Foot is cold per documentation, Left foot warm. Pt not speaking today. Pt family states that wound has been re-occurring for months. 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 He presents to us for vascular evaluation with daughter at bedside. Of note he is nonambulatory. He has not been ambulating for several years. Mostly bedside. In addition he does respond to commands but is not verbal. Daughter reports that he is hard of hearing. He now presents to us for vascular evaluation. Of note patient has a prior history of congestive heart failure, Alzheimer's, CVA. [facility] Medical History CVA (cerebral vascular accident) Depression HTN (hypertension), benign BPH (benign prostatic hyperplasia) A-fib CAD (coronary artery disease) Peripheral vascular disease AD (Alzheimer's disease) Congestive heart failure Social History Household Members: Unknown / Unable to assess Housing: [facility] Unable to assess alcohol history related to: Unable to respond Patient Tobacco Use Status: Tobacco use Unknown service: Yes Current occupational status: retired Review of Systems Const All systems reviewed & are unremarkable except as noted in HPI and below Reports no additional complaints ENT Reports Normal hearing present Card Denies chest pain, Denies chest pain at rest, Denies chest pain with activity and Denies pedal edema Resp Denies cough GI Denies abdominal pain Musc Denies abnormal gait, Denies muscle cramps and Denies radiating pain into limb Skin/Breast Denies skin ulcer and Denies wounds Neuro Reports Normal hearing present and Denies abnormal gait Psych Reports no additional complaints Physical Exam Const General: cooperative, healthy appearing and comfortable Orientation/consciousness: oriented to person, oriented to place and oriented to time HEENT Head: Yes normal to inspection Neck Neck: Yes normal visual inspection Carotids: no bruits Chest Chest palpation & inspection: normal inspection of the chest Resp Effort & Inspection: normal respiratory effort and able to speak in complete sentences Auscultation: clear to auscultation bilaterally, no crackles, no rales, no rhonchi and no wheezes Cardio Other: Bilateral DP signals Rate: regular rate Rhythm: regular rhythm Heart sounds: S1 normal heart sound present and S2 normal heart sound present Bruits: no carotid bruits Peripheral pulses: Peripheral pulses 2+ throughout GI Inspection: Yes normal to inspection Skin Other: Left heel ulcer approximately E 6 cm in diameter. Dry and hard. No evidence of cellulitis. No evidence of infection. Wounds: no wounds Hair: normal Neuro General: oriented to person, oriented to place and oriented to time Cranial nerves: Yes CN's II-XII intact bilaterally and Yes Normal hearing present Cognition (Neuro): normal cognition Motor exam (neuro): 5/5 motor strength present throughout Extrem Other: venous exam: No significant superficial varicosities or spider telangiectasias, minimal edema General: No clubbing, No cyanosis and No edema Psych Appearance: grossly normal Mental Status: mental status grossly normal Speech and movement: Normal speech and movement present Results Reviewed Results Reviewed: Reported TOPHER on chart of 0.4. We did reach out to the facility and this was not a formal test but a bedside TOPHER performed by a nurse. This was on a written report from 03/08/2023. Assessment & Plan Assessment & Plan (1) Ulcer of left heel: Code(s): L97.429 - Non-pressure chronic ulcer of left heel and midfoot with unspecified severity Qualifiers: Non-pressure ulcer stage: unspecified non-pressure ulcer stage Qualified Code(s): L97.429 - Non-pressure chronic ulcer of left heel and midfoot with unspecified severity Plan: In short patient has left heel pressure ulcer. At the current time it is stable. I do not believe he is a candidate for any aggressive endovascular intervention. I do recommend offloading as much as possible. Should this progress the only thing I would offer this unfortunate gentleman is an amputation. The patient will follow up with us on an as-needed basis. Thank you for allowing us to assist in his care. Coding Level of Care Code New Pt Level 4 (55512) Diagnoses Heel ulceration, left, with unspecified severity L97.429 Non-pressure ulcer stage: unspecified non-pressure ulcer stage
== END 2023-04-03 09:31 | disposition home or self-care (01) ==
PROVIDERS: PCP Internal Medicine; Visit Provider Surgery Vascular Surgery
DX: L97.429 Non-pressure chronic ulcer of left heel and midfoot with unspecified severity (principal)
CPT/HCPCS: 99204

== ENCOUNTER → 2023-04-03 08:38 | Outpatient (BNVA) | payer MEDICARE, OTHER, SELFPAY | PROVIDERS: PCP Internal Medicine; Visit Provider Surgery Vascular Surgery | DX: I73.9 Peripheral vascular disease, unspecified (principal); L97.429 Non-pressure chronic ulcer of left heel and midfoot with unspecified severity | CPT/HCPCS: 99202 ==

== ENCOUNTER 2023-08-17 08:15 | Outpatient (REF) | payer MEDICARE, SELFPAY ==
[2023-08-17 08:22] LABS: MANUAL DIFF FLAG NO
[2023-08-17 08:54] LABS: Basophils Percent Auto 0.4 % (0-2); Eosinophils Absolute Auto 0.3 X10*3/uL (0.0-0.4); Eosinophils Percent Auto 3.5 % (0-4); Hematocrit 36.1 % (42.0-52.0); Hemoglobin 11.6 g/dl (14.0-18.0); Imm Gran Abs Auto 0.02 X10*3/uL (0.00-0.03); Imm Gran Pct Auto 0.3 % (0.0-0.4); Lymphocytes Absolute Auto 2.4 X10*3/uL (1.2-4.9); Mean Corpuscular HGB Conc 32.1 g/dl (31.0-36.0); Mean Corpuscular Hemoglobin 28.5 pg (27.0-33.0); Mean Corpuscular Volume 88.7 fL (80.0-98.0); Mean Platelet Volume 9.4 fL (9.4-12.4); Monocytes Absolute Auto 0.8 X10*3/uL (0.1-1.2); Monocytes Percent Auto 10.8 % (2-11); Neutrophils Absolute Auto 3.7 x10*3/uL (2.0-8.3); Platelet Count 204 X10*3/uL (160-400); Red Blood Count 4.07 X10*6/uL (4.60-5.80); Red Cell Distribution Width 14.9 % (11.0-16.0); White Blood Count 7.2 X10*3/uL (4.8-10.8)
[2023-08-17 09:11] LABS: Alanine Aminotransferase 7 U/L (0-40); Alkaline Phosphatase 48 U/L (39-117); Anion Gap 12 (12-20); Aspartate Amino Transferase 15 U/L (5-37); Bilirubin Total 0.5 mg/dL (0.0-1.0); Blood Urea Nitrogen 17 mg/dL (9-16); Calcium 8.6 mg/dL (8.4-10.2); Carbon Dioxide 26 mmol/L (22-29); Chloride 105 mmol/L (96-108); Estimated Glomerular Filt Rate > 60; Glucose Fasting 114 mg/dL (60-99); Potassium 4.4 mmol/L (3.3-5.1); Sodium 139 mmol/L (135-145); Total Protein 5.5 g/dL (6.5-8.0)
== END 2023-08-17 08:16 | disposition home or self-care (01) ==
LOC: HO.HSH3E 08:15
PROVIDERS: Visit Provider Internal Medicine Medical Oncology
DX: J10.1 Influenza due to other identified influenza virus with other respiratory manifestations (principal)
CPT/HCPCS: 36415; 80053; 85025

== ENCOUNTER 2023-10-24 06:52 | Outpatient (REF) | payer MEDICARE, SELFPAY ==
[2023-10-24 06:57] LABS: MANUAL DIFF FLAG NO
[2023-10-24 07:44] LABS: Basophils Percent Auto 0.6 % (0-2); Eosinophils Absolute Auto 0.4 X10*3/uL (0.0-0.4); Eosinophils Percent Auto 6.3 % (0-4); Hematocrit 35.8 % (42.0-52.0); Hemoglobin 11.6 g/dl (14.0-18.0); Imm Gran Abs Auto 0.02 X10*3/uL (0.00-0.03); Imm Gran Pct Auto 0.3 % (0.0-0.4); Lymphocytes Absolute Auto 2.2 X10*3/uL (1.2-4.9); Lymphocytes Percent Auto 31.4 % (20-40); Mean Corpuscular HGB Conc 32.4 g/dl (31.0-36.0); Mean Corpuscular Hemoglobin 28.7 pg (27.0-33.0); Mean Corpuscular Volume 88.6 fL (80.0-98.0); Mean Platelet Volume 8.9 fL (9.4-12.4); Monocytes Absolute Auto 0.8 X10*3/uL (0.1-1.2); Monocytes Percent Auto 11.7 % (2-11); Neutrophils Absolute Auto 3.5 x10*3/uL (2.0-8.3); Neutrophils Percent Auto 49.7 % (45-73); Platelet Count 161 X10*3/uL (160-400); Red Blood Count 4.04 X10*6/uL (4.60-5.80); Red Cell Distribution Width 15.3 % (11.0-16.0); White Blood Count 6.9 X10*3/uL (4.8-10.8)
[2023-10-24 08:01] LABS: Alanine Aminotransferase 6 U/L (0-40); Albumin Level 3.2 g/dL (3.5-5.0); Alkaline Phosphatase 46 U/L (39-117); Anion Gap 12 (12-20); Aspartate Amino Transferase 14 U/L (5-37); Bilirubin Total 0.4 mg/dL (0.0-1.0); Blood Urea Nitrogen 14 mg/dL (9-16); Calcium 8.6 mg/dL (8.4-10.2); Carbon Dioxide 25 mmol/L (22-29); Chloride 105 mmol/L (96-108); Estimated Glomerular Filt Rate > 60; Glucose Random 96 mg/dL (60-115); Potassium 4.4 mmol/L (3.3-5.1); Sodium 138 mmol/L (135-145); Total Protein 5.5 g/dL (6.5-8.0)
[2023-10-24 08:23] LABS: Erythrocyte Sedimentation Rate 12 MM/HR (0-15)
[2023-10-24 08:34] LABS: Estimated Average Glucose 151 mg/dL; Hemoglobin A1c % 6.9 % (<6.0)
== END 2023-10-24 06:53 | disposition home or self-care (01) ==
LOC: HO.HSH3E 06:52
PROVIDERS: Visit Provider Internal Medicine Medical Oncology
DX: E11.9 Type 2 diabetes mellitus without complications (principal)
CPT/HCPCS: 36415; 80053; 83036; 85025; 85652

== ENCOUNTER 2023-10-26 12:46 | Outpatient (REF) | payer MEDICARE, SELFPAY ==
[2023-10-26 13:29] LABS: Alanine Aminotransferase 8 U/L (0-40); Albumin Level 3.1 g/dL (3.5-5.0); Alkaline Phosphatase 52 U/L (39-117); Anion Gap 12 (12-20); Aspartate Amino Transferase 24 U/L (5-37); Bilirubin Total 0.4 mg/dL (0.0-1.0); Blood Urea Nitrogen 20 mg/dL (9-16); Carbon Dioxide 27 mmol/L (22-29); Chloride 104 mmol/L (96-108); Estimated Glomerular Filt Rate > 60; Glucose Random 203 mg/dL (60-115); Potassium 4.2 mmol/L (3.3-5.1); Sodium 139 mmol/L (135-145); Total Protein 5.7 g/dL (6.5-8.0)
== END 2023-10-26 12:47 | disposition home or self-care (01) ==
LOC: HO.HSH3E 12:46
PROVIDERS: Visit Provider Internal Medicine Medical Oncology
DX: Z13.89 Encounter for screening for other disorder (principal)
CPT/HCPCS: 36415; 80053

== ENCOUNTER 2023-11-13 11:23 | Outpatient (REF) | payer MEDICARE, SELFPAY ==
[2023-11-13 11:37] LABS: Basophils Percent Auto 0.2 % (0-2); Hematocrit 38.4 % (42.0-52.0); Hemoglobin 12.3 g/dl (14.0-18.0); Imm Gran Abs Auto 0.11 X10*3/uL (0.00-0.03); Imm Gran Pct Auto 0.7 % (0.0-0.4); Lymphocytes Absolute Auto 0.6 X10*3/uL (1.2-4.9); MANUAL DIFF FLAG SCAN; Mean Corpuscular Hemoglobin 27.9 pg (27.0-33.0); Mean Corpuscular Volume 87.1 fL (80.0-98.0); Mean Platelet Volume 9.5 fL (9.4-12.4); Monocytes Absolute Auto 1.6 X10*3/uL (0.1-1.2); Monocytes Percent Auto 10.1 % (2-11); Neutrophils Absolute Auto 13.7 x10*3/uL (2.0-8.3); Platelet Count 325 X10*3/uL (160-400); Red Blood Count 4.41 X10*6/uL (4.60-5.80); SCAN SMEAR FLAG 1; White Blood Count 16.1 X10*3/uL (4.8-10.8)
[2023-11-13 11:55] LABS: Alanine Aminotransferase 8 U/L (0-40); Albumin Level 2.9 g/dL (3.5-5.0); Alkaline Phosphatase 68 U/L (39-117); Anion Gap 14 (12-20); Aspartate Amino Transferase 19 U/L (5-37); Bilirubin Total 0.6 mg/dL (0.0-1.0); Blood Urea Nitrogen 39 mg/dL (9-16); Calcium 9.6 mg/dL (8.4-10.2); Carbon Dioxide 28 mmol/L (22-29); Chloride 103 mmol/L (96-108); Estimated Glomerular Filt Rate > 60; Glucose Random 287 mg/dL (60-115); Potassium 5.3 mmol/L (3.3-5.1); Sodium 140 mmol/L (135-145); Total Protein 6.4 g/dL (6.5-8.0)
[2023-11-13 11:56] LABS: SLIDE REVIEW VERIFIED
[2023-11-13 12:32] LABS: Thyroid Stimulating Hormone 1.08 uIU/mL (0.32-4.0)
[2023-11-13 19:57] LABS: Appearance Urine Cloudy; Color Urine Dark Yellow; Glucose Urine UA 500 mg/dL (Negative); Leukocyte Esterase Urine Small (1+) (Negative); Nitrite Urine Negative (Negative); PH 5.5 (5.0-9.0); UMIC TRIGGER UA YES; Urine Blood Large (3+) (Negative); Urine Ketones Negative (Negative); Urine Protein Negative (Neg-Trace)
[2023-11-13 20:39] LABS: Bacteria Urine None Seen (None Seen); Hyaline Casts Urine 0-2 /LPF (0-2); RBC Urine >20 /HPF (0-2); Squamous Epithelial Cell Urine 0-2 /HPF (0-2); WBC Urine 0-5 /HPF (0-5)
== END 2023-11-13 11:24 | disposition home or self-care (01) ==
LOC: HO.HSH3E 11:23
PROVIDERS: Visit Provider Internal Medicine Medical Oncology
DX: A41.9 Sepsis, unspecified organism (principal)
CPT/HCPCS: 36415; 80053; 81001; 81003; 84443; 85025; 87086

== ENCOUNTER 2023-11-16 06:57 | Outpatient (REF) | payer MEDICARE, SELFPAY ==
[2023-11-16 07:02] LABS: MANUAL DIFF FLAG NO
[2023-11-16 07:26] LABS: Basophils Absolute Auto 0.1 X10*3/uL (0.0-0.2); Basophils Percent Auto 0.5 % (0-2); Eosinophils Absolute Auto 0.3 X10*3/uL (0.0-0.4); Eosinophils Percent Auto 2.7 % (0-4); Hematocrit 35.4 % (42.0-52.0); Hemoglobin 11.3 g/dl (14.0-18.0); Imm Gran Abs Auto 0.04 X10*3/uL (0.00-0.03); Imm Gran Pct Auto 0.4 % (0.0-0.4); Lymphocytes Absolute Auto 1.7 X10*3/uL (1.2-4.9); Lymphocytes Percent Auto 18.1 % (20-40); Mean Corpuscular HGB Conc 31.9 g/dl (31.0-36.0); Mean Corpuscular Hemoglobin 28.3 pg (27.0-33.0); Mean Corpuscular Volume 88.7 fL (80.0-98.0); Mean Platelet Volume 9.3 fL (9.4-12.4); Monocytes Percent Auto 10.3 % (2-11); Neutrophils Absolute Auto 6.4 x10*3/uL (2.0-8.3); Platelet Count 311 X10*3/uL (160-400); Red Blood Count 3.99 X10*6/uL (4.60-5.80); Red Cell Distribution Width 15.5 % (11.0-16.0); White Blood Count 9.5 X10*3/uL (4.8-10.8)
[2023-11-16 07:42] LABS: Alanine Aminotransferase 11 U/L (0-40); Albumin Level 2.6 g/dL (3.5-5.0); Alkaline Phosphatase 63 U/L (39-117); Anion Gap 14 (12-20); Aspartate Amino Transferase 15 U/L (5-37); Bilirubin Total 0.3 mg/dL (0.0-1.0); Blood Urea Nitrogen 35 mg/dL (9-16); Calcium 9.2 mg/dL (8.4-10.2); Carbon Dioxide 27 mmol/L (22-29); Chloride 106 mmol/L (96-108); Estimated Glomerular Filt Rate > 60; Glucose Random 235 mg/dL (60-115); Potassium 4.2 mmol/L (3.3-5.1); Sodium 143 mmol/L (135-145); Total Protein 5.4 g/dL (6.5-8.0)
[2023-11-16 07:51] LABS: Lactic Acid 2.4 mmol/L (0.5-2.0)
[2023-11-16 09:00] LABS: Reflex Lactate? Lactic Acid Added
== END 2023-11-16 06:58 | disposition home or self-care (01) ==
LOC: HO.HSH3E 06:57
PROVIDERS: Visit Provider Nurse Practitioner Acute Care
DX: K80.20 Calculus of gallbladder without cholecystitis without obstruction (principal); E86.0 Dehydration
CPT/HCPCS: 36415; 80053; 83605; 85025

== ENCOUNTER 2023-11-17 12:57 | Outpatient (REF) | payer MEDICARE, MEDICAID, SELFPAY ==
[2023-11-17 13:08] LABS: MANUAL DIFF FLAG NO
[2023-11-17 13:21] LABS: Basophils Absolute Auto 0.1 X10*3/uL (0.0-0.2); Basophils Percent Auto 0.5 % (0-2); Eosinophils Absolute Auto 0.6 X10*3/uL (0.0-0.4); Eosinophils Percent Auto 6.4 % (0-4); Hematocrit 36.8 % (42.0-52.0); Hemoglobin 11.8 g/dl (14.0-18.0); Imm Gran Abs Auto 0.03 X10*3/uL (0.00-0.03); Imm Gran Pct Auto 0.3 % (0.0-0.4); Lymphocytes Absolute Auto 1.7 X10*3/uL (1.2-4.9); Lymphocytes Percent Auto 18.1 % (20-40); Mean Corpuscular HGB Conc 32.1 g/dl (31.0-36.0); Mean Corpuscular Hemoglobin 28.4 pg (27.0-33.0); Mean Corpuscular Volume 88.7 fL (80.0-98.0); Mean Platelet Volume 8.9 fL (9.4-12.4); Monocytes Absolute Auto 0.8 X10*3/uL (0.1-1.2); Monocytes Percent Auto 9.1 % (2-11); Neutrophils Percent Auto 65.6 % (45-73); Platelet Count 311 X10*3/uL (160-400); Red Blood Count 4.15 X10*6/uL (4.60-5.80); Red Cell Distribution Width 15.4 % (11.0-16.0); White Blood Count 9.2 X10*3/uL (4.8-10.8)
[2023-11-17 13:46] LABS: Lactic Acid 3.5 mmol/L (0.5-2.0)
[2023-11-17 15:05] LABS: Reflex Lactate? Lactic Acid Added
== END 2023-11-17 12:58 | disposition home or self-care (01) ==
LOC: HO.HSH3E 12:57
PROVIDERS: Visit Provider Internal Medicine Medical Oncology
DX: E11.9 Type 2 diabetes mellitus without complications (principal)
CPT/HCPCS: 36415; 83605; 85025

== ENCOUNTER 2023-11-17 14:51 | Emergency (ER) | payer OTHER, MEDICARE, SELFPAY ==
--- NOTE | ~2023-11-17 | CT_ITS ---
EXAMINATION: CT ABDOMEN AND PELVIS WITH CONTRAST CLINICAL INFORMATION: Lower abdominal pain. COMPARISON: None available. TECHNIQUE: Multidetector volumetric images were obtained from the superior aspect of the liver through the pubic symphysis following administration 85 mL of Omnipaque 350 intravenous contrast. Sagittal and coronal reformatted images were obtained on the technologist's workstation. Oral contrast: No This CT examination was performed using dose optimization techniques as appropriate, variously including the following: *Automated exposure control *Adjustment of mA and/or kV according to patient size (this includes techniques or standardized protocols for targeted exams where dose is matched to indication/reason for exam; i.e. extremities or head) *Use of iterative reconstruction technique DLP: 647 mGy-cm FINDINGS: The exam is limited secondary to patient breathing motion. LUNG BASES: There is minimal right basilar pleural thickening. Heart size enlarged with extensive coronary artery calcifications. No pericardial or pleural effusion seen. There are median sternotomy sutures from previous intervention. LIVER, GALLBLADDER, AND BILIARY TREE: The liver is normal in size, shape, and attenuation. No focal hepatic lesion or biliary ductal dilatation is present. The gallbladder is distended with hypodense large but no wall thickening or surrounding fluid. PANCREAS: The pancreas is not well visualized due to blurring of images. No gross abnormality. SPLEEN: Unremarkable. ADRENAL GLANDS: Unremarkable. KIDNEYS AND URETERS: The kidneys are normal in size, shape, and attenuation. No hydronephrosis, hydroureter, or calculi seen. There is mild bilateral perinephric perinephric stranding. There is a large simple cyst upper pole left kidney measuring 7.5 x 6.9 x 7.0 cm. No further workup needed. BLADDER: There is diffuse bladder wall thickening with a Ibrahim's catheter within but no radiopaque calculi seen. Question cystitis. GASTROINTESTINAL TRACT: Scattered stool, diverticuli and gas is seen in the colon without distention or diverticulitis. Appendix is not seen. The stomach is distended with gas and fluid. Nonspecific mild wall thickening of the proximal stomach is noted. There is no free air or free fluid. ABDOMINAL WALL: No significant hernia is appreciated. LYMPH NODES: Normal. VASCULAR: Mild atherosclerosis of abdominal aorta but no aneurysmal dilatation. PELVIC VISCERA: The prostate gland is mildly enlarged. No free fluid. No abnormal pelvic or inguinal lymph nodes. No evidence of hernia. OSSEOUS STRUCTURES: Mild ventral spondylosis without visible acute fracture or dislocation. Mild degenerative facet joint arthropathy L5-S1 and L4-L5 and L3-L4 disc levels. CT/CT abdomen pelvis w IV con IMPRESSION: 1. Diffuse bladder wall thickening with a Ibrahim's catheter within. Question cystitis. Correlate with urinalysis. No further workup needed. 2. Mild constipation. Colonic diverticulosis without diverticulitis. 3. Mild prostate enlargement. 4. Enlarged gallbladder with hyperdense sludge. Fleischner guidelines were followed.
[2023-11-17 15:01] VITALS: PULSE 80; O2SAT 95
[2023-11-17 15:06] VITALS: BP 136/62; PULSE 81; RESP 16; TEMP 37; O2SAT 97; BMI 20.5
--- NOTE | 2023-11-17 16:11 | ED.RECABL ---
HPI - Recheck/Abnormal Lab/Rx General Chief Complaint: Recheck/Abnormal Lab/Rx Stated Complaint: ELEVATED LACTIC 3.5 Time Seen by Provider: 11/17/23 15:52 Source: EMS and other Mode of arrival: EMS History of Present Illness ED Provider: Dr Carrasquillo HPI narrative: 88-year-old male, nonverbal, chronic indwelling Ibrahim catheter is brought in by EMS from [facility], facility has concerned about arising lactic acid but otherwise no other issues noted. Related Data Home Medications ?Medication ?Instructions ?Recorded ?Confirmed apixaban 5 mg tablet 5 mg PO BID 06/17/21 02/23/23 aspirin 81 mg chewable tablet 81 mg PO DAILY 06/17/21 02/23/23 carvedilol 6.25 mg tablet 6.25 mg PO BID 06/17/21 02/23/23 cholecalciferol (vitamin D3) 50 50 mcg PO DAILY 06/17/21 02/23/23 mcg (2,000 unit) tablet insulin glargine 100 unit/mL 18 unit subcut DAILY 06/17/21 02/23/23 subcutaneous solution lisinopril 2.5 mg tablet 2.5 mg PO DAILY 06/17/21 02/23/23 metformin 1,000 mg tablet 1,000 mg PO DAILY 06/17/21 02/23/23 metformin 500 mg tablet 500 mg BEDTIME 06/17/21 02/23/23 sennosides 8.6 mg tablet (senna) 17.2 mg PO BEDTIME 06/17/21 02/23/23 simvastatin 20 mg tablet 20 mg PO BEDTIME 06/17/21 02/23/23 tamsulosin 0.4 mg capsule 0.4 mg PO DAILY 06/17/21 02/23/23 acetaminophen 325 mg tablet 650 mg PO BID PRN Fever Or Pain 02/23/23 02/23/23 acetaminophen 325 mg tablet 650 mg PO Q4H PRN Fever Or Pain 02/23/23 02/23/23 bisacodyl 10 mg rectal suppository 10 mg IL DAILY PRN FOR NO BM IN 3 02/23/23 02/23/23 DAYS loperamide 2 mg tablet 2 mg PO Q3H PRN Loose Stool 02/23/23 02/23/23 magnesium hydroxide 400 mg/5 mL 30 ml PO BEDTIME PRN FOR NO BM IN 02/23/23 02/23/23 oral suspension 3 DAYS multivitamin 1 tab PO DAILY 02/23/23 02/23/23 polyethylene glycol 3350 17 17 g PO Q2D 02/23/23 02/23/23 gram/dose oral powder sodium phosphates 19 gram-7 118 ml IL BEDTIME PRN FOR NO BM IN 02/23/23 02/23/23 gram/118 mL enema (Fleet Enema) 3 DAYS Previous Rx's ?Medication ?Instructions ?Recorded dexamethasone 6 mg tablet 6 mg PO DAILY #7 tabs 06/19/21 cefuroxime axetil 500 mg tablet 500 mg PO BID 3 days #6 tabs 02/26/23 Allergies Allergy/AdvReac Type Severity Reaction Status Date / Time No Known Allergies Allergy Verified 11/17/23 15:15 Review of Systems Review of Systems: Pertinent positives and negatives as stated in HPI, but otherwise further information unobtainable PMFSH Past Medical History Source: nursing notes reviewed Medical History CVA (cerebral vascular accident) Depression HTN (hypertension), benign BPH (benign prostatic hyperplasia) A-fib CAD (coronary artery disease) Peripheral vascular disease AD (Alzheimer's disease) Congestive heart failure Social History Social History Household Members: Unknown / Unable to assess Housing: Custodial Unable to assess alcohol history related to: Unable to respond Patient Tobacco Use Status: Tobacco use Unknown Advance Directives: Yes Advance Directives on File: Yes Advance Directives Date on File: 11/17/23 Do you have a plan to hurt others: No Plan service: Yes Current occupational status: retired Physical Exam Vital Signs: Vital Signs: Last Vital Signs Temp 98.3 F 11/17/23 19:46 Pulse 80 11/17/23 19:46 Resp 20 11/17/23 19:46 BP 120/55 L 11/17/23 19:46 Pulse Ox 97 11/17/23 19:46 O2 Del Method Room Air 11/17/23 19:46 BMI result Body Mass Index 20.5 VITAL SIGNS: Reviewed. GENERAL: Well developed, well nourished, in no acute distress. HEAD: Normocephalic/atraumatic EYES: PERRLA, EOMI EARS: Ext canals without abnormality NOSE: Nares patent bilateral OROPHARYNX: no oral lesions noted, posterior pharynx clear NECK: Supple, no adenopathy LUNGS: Normal breath sounds. No adventitious sounds or accessory muscle use. SpO2<97> CARDIOVASCULAR: Regular rate and rhythm without noted murmurs, no JVD or lower extremity edema. ABDOMEN: Soft, lower abdominal pain, non-distended with bowel sounds. : Ibrahim catheter patent and appears to be draining clear yellow urine MUSCULOSKELETAL: No tenderness, deformities, or effusions noted on gross inspection. EXTREMITIES: No cyanosis, clubbing or edema. SKIN: Inspection of the skin reveals no rashes NEUROLOGIC: Alert and Strength and sensation to light touch were grossly intact x 4. Medications Administered Discontinued Medications Generic Name Dose Route Start Last Admin Trade Name Freq PRN Reason Stop Dose Admin Sodium Chloride 1,000 mls @ 999 mls/hr 11/17/23 17:00 11/17/23 17:40 Ns IV 11/17/23 18:00 999 mls/hr .Q1H1M QUINCY Administration Iohexol 85 ml 11/17/23 18:18 11/17/23 18:18 Iohexol 350 Mg/Ml 100 Ml Infus..Btl IV 11/17/23 18:19 85 ml ONCE ONE Administration Medical Decision Making Medical Decision Making [facility] Narrative: 1605: 88-year-old male with history and clinical presentation, DDX: Underlying infection, possibly diverticulitis/urinary tract infection/renal colic lower clinical suspicion for SBO, possible component of dehydration. I reviewed all investigations and there is no leukocytosis or thrombocytopenia but there is a stable normocytic anemia. Chemistry indices do not demonstrate an PEARL or electrolyte/liver enzyme derangements, lactic acid is noted to be elevated and given abdominal pain proceeded with CT scan which strictly shows some bladder wall thickening but otherwise no acute abnormalities. Patient was hydrated with 1 L of fluids with down trending lactic acid and suspect that these values may have been contributed to by a component of dehydration. There is no evidence other associated metabolic derangements to better explain patient's lactic acidosis. Could be medication related as well. Urinalysis is negative for UTI. Patient is otherwise stable for discharge back to the [facility] and further management by the supervising provider. Differential Diagnosis Differential Diagnoses: The differential diagnosis associated with the presentation includes Please see the discussion above Admission/Observation Consideration of admission/observation: Escalation of care including admission/observation considered Please see the discussion above Lab Data MDM Lab Attestation statement: I reviewed the patient's lab results. Please see the discussion above 11/17/23 17:34 11/17/23 17:34 Labs: Lab Results 11/17/23 11/17/23 11/17/23 Range/Units 16:06 17:34 19:30 WBC 9.2 (4.8-10.8) X10*3/uL RBC 4.09 L (4.60-5.80) X10*6/uL Hgb 11.6 L (14.0-18.0) g/dl Hct 36.4 L (42.0-52.0) % MCV 89.0 (80.0-98.0) fL MCH 28.4 (27.0-33.0) pg MCHC 31.9 (31.0-36.0) g/dl RDW 15.3 (11.0-16.0) % Plt Count 311 (160-400) X10*3/uL MPV 8.8 L (9.4-12.4) fL Immature Gran % (Auto) 0.2 (0.0-0.4) % Neut % (Auto) 64.9 (45-73) % Lymph % (Auto) 20.7 (20-40) % [place] % (Auto) 7.6 (2-11) % Eos % (Auto) 6.2 H (0-4) % Baso % (Auto) 0.4 (0-2) % Lymph # (Auto) 1.9 (1.2-4.9) X10*3/uL [place] # (Auto) 0.7 (0.1-1.2) X10*3/uL Eos # (Auto) 0.6 H (0.0-0.4) X10*3/uL Baso # (Auto) 0.0 (0.0-0.2) X10*3/uL Abs Immat Gran (auto) 0.02 (0.00-0.03) X10*3/uL Absolute Neuts (auto) 6.0 (2.0-8.3) x10*3/uL Absolute Nucleated RBC 0.000 (0.0-0.012) X10*3/uL Nucleated RBC % (auto) 0.0 (0.0-0.2) /100WBC Sodium 144 (135-145) mmol/L Potassium 4.4 (3.3-5.1) mmol/L Chloride 104 (96-108) mmol/L Carbon Dioxide 31 H (22-29) mmol/L Anion Gap 13 (12-20) BUN 23 H (9-16) mg/dL Creatinine 0.48 L (0.5-1.4) mg/dL Estim Creat Clear Calc 100.2 Estimated GFR > 60 Random Glucose 123 H (60-115) mg/dL Lactic Acid 4.4 H* (0.5-2.0) mmol/L Lactic Acid F/U @ 2Hr (0.5-2.0) mmol/L Calcium 9.1 (8.4-10.2) mg/dL Total Bilirubin 0.3 (0.0-1.0) mg/dL AST 16 (5-37) U/L ALT 13 (0-40) U/L Alkaline Phosphatase 63 (39-117) U/L Total Protein 5.8 L (6.5-8.0) g/dL Albumin 2.9 L (3.5-5.0) g/dL Urine Color Yellow Urine Appearance Clear Urine pH 8.0 (5.0-9.0) Ur Specific [place] >= 1.030 H (1.005-1.025) Urine Protein Trace (Neg-Trace) mg/dL Urine Glucose (UA) Negative (Negative) mg/dL Urine Ketones Negative (Negative) mg/dL Urine Blood Trace H (Negative) Urine Nitrite Negative (Negative) Ur Leukocyte Esterase Negative (Negative) Urine RBC 3-5 H (0-2) /HPF Urine WBC 0-5 (0-5) /HPF Ur Squamous Epith Cells 0-2 (0-2) /HPF Urine Bacteria None Seen (None Seen) Hyaline Casts 0-2 (0-2) /LPF 11/17/23 Range/Units 20:00 WBC (4.8-10.8) X10*3/uL RBC (4.60-5.80) X10*6/uL Hgb (14.0-18.0) g/dl Hct (42.0-52.0) % MCV (80.0-98.0) fL MCH (27.0-33.0) pg MCHC (31.0-36.0) g/dl RDW (11.0-16.0) % Plt Count (160-400) X10*3/uL MPV (9.4-12.4) fL Immature Gran % (Auto) (0.0-0.4) % Neut % (Auto) (45-73) % Lymph % (Auto) (20-40) % [place] % (Auto) (2-11) % Eos % (Auto) (0-4) % Baso % (Auto) (0-2) % Lymph # (Auto) (1.2-4.9) X10*3/uL [place] # (Auto) (0.1-1.2) X10*3/uL Eos # (Auto) (0.0-0.4) X10*3/uL Baso # (Auto) (0.0-0.2) X10*3/uL Abs Immat Gran (auto) (0.00-0.03) X10*3/uL Absolute Neuts (auto) (2.0-8.3) x10*3/uL Absolute Nucleated RBC (0.0-0.012) X10*3/uL Nucleated RBC % (auto) (0.0-0.2) /100WBC Sodium (135-145) mmol/L Potassium (3.3-5.1) mmol/L Chloride (96-108) mmol/L Carbon Dioxide (22-29) mmol/L Anion Gap (12-20) BUN (9-16) mg/dL Creatinine (0.5-1.4) mg/dL Estim Creat Clear Calc Estimated GFR Random Glucose (60-115) mg/dL Lactic Acid (0.5-2.0) mmol/L Lactic Acid F/U @ 2Hr 2.2 H* (0.5-2.0) mmol/L Calcium (8.4-10.2) mg/dL Total Bilirubin (0.0-1.0) mg/dL AST (5-37) U/L ALT (0-40) U/L Alkaline Phosphatase (39-117) U/L Total Protein (6.5-8.0) g/dL Albumin (3.5-5.0) g/dL Urine Color Urine Appearance Urine pH (5.0-9.0) Ur Specific [place] (1.005-1.025) Urine Protein (Neg-Trace) mg/dL Urine Glucose (UA) (Negative) mg/dL Urine Ketones (Negative) mg/dL Urine Blood (Negative) Urine Nitrite (Negative) Ur Leukocyte Esterase (Negative) Urine RBC (0-2) /HPF Urine WBC (0-5) /HPF Ur Squamous Epith Cells (0-2) /HPF Urine Bacteria (None Seen) Hyaline Casts (0-2) /LPF Radiology Impression Discussion of test interpretation with radiology: I have reviewed the radiologist's reading. Radiologist Impression: Please see the discussion above External Record Review External record reviewed: Outpatient record and Prior outpatient labs Chronic Conditions Patient?s care impacted by: Diabetes and Hypertension Chronic anticoagulation Critical Care Time Critical Care Time Critical Care Time: Yes Total Critical Care Time: 45 Attestation: I personally attest to this time spent taking care of the patient. Discharge Plan Discharge Clinical Impression: Elevated lactic acid level, Dehydration Patient Disposition: Xfer SNF Instructions: Dehydration (ED) Additional Instructions: Resume all prescribed medication. Evaluation by supervising provider and further outpatient management. Prescriptions: No Action tamsulosin 0.4 mg Capsule 0.4 mg PO DAILY apixaban 5 mg Tablet 5 mg PO BID aspirin 81 mg Tablet,Chewable 81 mg PO DAILY carvedilol 6.25 mg Tablet 6.25 mg PO BID cholecalciferol (vitamin D3) 50 mcg (2,000 unit) Tablet 50 mcg PO DAILY lisinopril 2.5 mg Tablet 2.5 mg PO DAILY simvastatin 20 mg Tablet 20 mg PO BEDTIME sennosides [senna] 8.6 mg Tablet 17.2 mg PO BEDTIME metformin 500 mg Tablet 500 mg BEDTIME metformin 1,000 mg Tablet 1,000 mg PO DAILY insulin glargine 100 unit/mL Solution 18 unit SUBCUT DAILY dexamethasone 6 mg tablet 6 mg PO DAILY Qty: 7 0RF multivitamin Tablet 1 tab PO DAILY acetaminophen 325 mg Tablet 650 mg PO BID PRN (Reason: Fever Or Pain) acetaminophen 325 mg Tablet 650 mg PO Q4H PRN (Reason: Fever Or Pain) loperamide 2 mg Tablet 2 mg PO Q3H PRN (Reason: Loose Stool) Rx Instructions: administer after each loose stool until symptoms controlled; do not exceed 8 mg per 24 hrs magnesium hydroxide 400 mg/5 mL Suspension 30 ml PO BEDTIME PRN (Reason: FOR NO BM IN 3 DAYS) bisacodyl 10 mg Suppository 10 mg IL DAILY PRN (Reason: FOR NO BM IN 3 DAYS) Fleet Enema 19-7 gram/118 mL Enema 118 ml IL BEDTIME PRN (Reason: FOR NO BM IN 3 DAYS) polyethylene glycol 3350 17 gram/dose Powder 17 g PO Q2D cefuroxime axetil 500 mg tablet 500 mg PO BID 3 Days Qty: 6 0RF Print Language: Turkmen
[2023-11-17 16:52] LABS: Lactic Acid 4.4 mmol/L (0.5-2.0)
[2023-11-17 17:36] LABS: MANUAL DIFF FLAG NO
[2023-11-17 17:38] LABS: Basophils Percent Auto 0.4 % (0-2); Eosinophils Absolute Auto 0.6 X10*3/uL (0.0-0.4); Eosinophils Percent Auto 6.2 % (0-4); Hematocrit 36.4 % (42.0-52.0); Hemoglobin 11.6 g/dl (14.0-18.0); Imm Gran Abs Auto 0.02 X10*3/uL (0.00-0.03); Imm Gran Pct Auto 0.2 % (0.0-0.4); Lymphocytes Absolute Auto 1.9 X10*3/uL (1.2-4.9); Lymphocytes Percent Auto 20.7 % (20-40); Mean Corpuscular HGB Conc 31.9 g/dl (31.0-36.0); Mean Corpuscular Hemoglobin 28.4 pg (27.0-33.0); Mean Platelet Volume 8.8 fL (9.4-12.4); Monocytes Absolute Auto 0.7 X10*3/uL (0.1-1.2); Monocytes Percent Auto 7.6 % (2-11); Neutrophils Percent Auto 64.9 % (45-73); Platelet Count 311 X10*3/uL (160-400); Red Blood Count 4.09 X10*6/uL (4.60-5.80); Red Cell Distribution Width 15.3 % (11.0-16.0); White Blood Count 9.2 X10*3/uL (4.8-10.8)
[2023-11-17] MEDS: 0.9 % Sodium Chloride 1,000 ML 999 ML IV (17:40)
[2023-11-17 17:43] VITALS: BP 142/64; PULSE 81; RESP 14; O2SAT 96
[2023-11-17 17:54] LABS: Alanine Aminotransferase 13 U/L (0-40); Albumin Level 2.9 g/dL (3.5-5.0); Alkaline Phosphatase 63 U/L (39-117); Anion Gap 13 (12-20); Aspartate Amino Transferase 16 U/L (5-37); Bilirubin Total 0.3 mg/dL (0.0-1.0); Blood Urea Nitrogen 23 mg/dL (9-16); Calcium 9.1 mg/dL (8.4-10.2); Carbon Dioxide 31 mmol/L (22-29); Chloride 104 mmol/L (96-108); Creatinine Clr Calc Pharmacy 100.2; Estimated Glomerular Filt Rate > 60; Glucose Random 123 mg/dL (60-115); Potassium 4.4 mmol/L (3.3-5.1); Sodium 144 mmol/L (135-145); Total Protein 5.8 g/dL (6.5-8.0)
[2023-11-17 18:09] LABS: Reflex Lactate? Lactic Acid Added
[2023-11-17] MEDS: iohexoL 350 MG/ML 100 ML INFUS..BTL 85 ML IV (18:18)
--- NOTE | 2023-11-17 19:31 | PC.NURSE ---
assumed care of pt at this time. urine obtained via mcdaniel port and sent to lab. fluids clamped upon entering room, pt received approx 100mL normal saline. Dr. Carrasquillo made aware, ok for repeat lactic being drawn now. pt resting comfortably in stretcher at this time. awaiting ua results.
[2023-11-17 19:35] LABS: Appearance Urine Clear; Color Urine Yellow; Glucose Urine UA Negative (Negative); Leukocyte Esterase Urine Negative (Negative); Nitrite Urine Negative (Negative); Specific Gravity - Urine >= 1.030 (1.005-1.025); UMIC TRIGGER UACC YES; Urine Blood Trace (Negative); Urine Ketones Negative (Negative); Urine Protein Trace mg/dL (Neg-Trace)
[2023-11-17 19:40] LABS: Bacteria Urine None Seen (None Seen); Hyaline Casts Urine 0-2 /LPF (0-2); Squamous Epithelial Cell Urine 0-2 /HPF (0-2); WBC Urine 0-5 /HPF (0-5)
[2023-11-17 19:46] VITALS: BP 120/55; PULSE 80; RESP 20; TEMP 36.8; O2SAT 97
--- NOTE | 2023-11-17 20:20 | PC.NURSE ---
labs drawn. mcdaniel is draining clear yellow urine. ivf infusing. vss. pt appears comfortable in stretcher nad. skin wpd. awaiting lab results/assessment for d/c.
[2023-11-17 20:30] LABS: ~Lactic Acid-LAB USE ONLY 2.2 mmol/L (0.5-2.0)
--- NOTE | 2023-11-17 21:07 | PC.NURSE ---
report given to nursing steffen house supervisor and RN at [facility].
[2023-11-17 21:26] VITALS: BP 120/55; PULSE 80; RESP 20; TEMP 36.8; O2SAT 97
[2023-11-17 22:04] LABS: Reflex Lactate? 2 Y
== END 2023-11-17 21:27 | disposition skilled nursing facility (03) ==
PROVIDERS: Emergency Provider Student in an Organized Health Care Education/Training Program
DX: R74.02 Elevation of levels of lactic acid dehydrogenase [LDH] (principal); E86.0 Dehydration; I11.0 Hypertensive heart disease with heart failure; I50.9 Heart failure, unspecified; I48.91 Unspecified atrial fibrillation; Z86.73 Personal history of transient ischemic attack (TIA), and cerebral infarction without residual deficits; Z79.01 Long term (current) use of anticoagulants; Z79.82 Long term (current) use of aspirin; Z79.4 Long term (current) use of insulin; Z79.84 Long term (current) use of oral hypoglycemic drugs; Z79.02 Long term (current) use of antithrombotics/antiplatelets
CPT/HCPCS: 36415; 74177; 80053; 81001; 83605; 85025; 87040; 96360; 96361; 99284; Q9967

== ENCOUNTER 2023-11-19 06:26 | Outpatient (REF) | payer MEDICARE, SELFPAY ==
[2023-11-19 07:25] LABS: Lactic Acid 1.9 mmol/L (0.5-2.0)
== END 2023-11-19 06:27 | disposition home or self-care (01) ==
LOC: HO.HSH3E 06:26
PROVIDERS: Visit Provider Internal Medicine Medical Oncology
DX: E87.20 Acidosis, unspecified (principal)
CPT/HCPCS: 36415; 83605

== ENCOUNTER 2023-11-28 13:17 | Outpatient (AMB) | payer OTHER, MEDICARE, SELFPAY ==
--- NOTE | 2023-11-28 13:30 | HO.VETSHOME ---
Intake Intake Visit Reasons: bladder calculi/enlarged prostate Intake Note: Patient is Present for Follow Up Urology Medication: Tamsulosin Antibiotic Allergies:None Blood Thinners: Apixaban, Aspirin Internal Security Manager Required: No Allergies No Known Allergies Allergy (Verified 11/28/23 13:31) [facility] HPI Comments History of Present Illness Details Enmanuel is a pleasant male. He has seen for the following urologic conditions - lower urinary tract symptoms - urinary retention Ibrahim catheter placed 11/15/23 Seen at emergency room 11/16 with possible dehydration Background diabetic Recommendation start prostate medications including finasteride 5 mg tamsulosin 0.4 mg Ibrahim to remain until 12/15/23 4 4 weeks of bladder rest at that point voiding trial could be performed Additionally suggest for valve to empty bladder q.4 hr with large bag at night PFSH Medical History CVA (cerebral vascular accident) Depression HTN (hypertension), benign BPH (benign prostatic hyperplasia) A-fib CAD (coronary artery disease) Peripheral vascular disease AD (Alzheimer's disease) Congestive heart failure Social History Household Members: Unknown / Unable to assess Housing: Long-Term Unable to assess alcohol history related to: Unable to respond Patient Tobacco Use Status: Tobacco use Unknown Advance Directives Date on File: 11/17/23 service: Yes Current occupational status: retired Review of Systems Const Reports as per HPI and Reports no additional complaints Card Reports as per HPI and Reports no additional complaints Resp Reports as per HPI and Reports no additional complaints GI Reports as per HPI and Reports no additional complaints Reports as per HPI Musc Reports no additional complaints and Reports as per HPI Neuro Reports no additional complaints and Reports as per HPI Physical Exam Const General: cooperative, healthy appearing, comfortable and no acute distress Orientation/consciousness: patient oriented x3 HEENT Face and sinus: Yes normal facial exam Mouth: moist mucous membranes Neck Neck: Yes normal visual inspection, Yes full ROM and Yes trachea midline Chest Chest palpation & inspection: normal inspection of the chest Resp Effort & Inspection: normal respiratory effort, able to speak in complete sentences and no respiratory distress GI Inspection: Yes normal to inspection Back/Spine/Pelvis Cervical Spine: normal cervical lordosis Thoracic/Lumbar Spine: thoracic and lumbar spine normal to inspection Skin General skin exam: no rashes or lesions noted Neuro General: patient oriented x3, tone normal and moves all extremities Extrem General: Yes normal to inspection and Yes capillary refill normal Assessment & Plan Assessment & Plan (1) Bladder outlet obstruction: Code(s): N32.0 - Bladder-neck obstruction (2) Urinary retention with incomplete bladder emptying: Code(s): R33.9 - Retention of urine, unspecified Plan Voiding trial in 1 month. Review Patient Instructions: Imaging studies, laboratory and physical exam results were discussed and reviewed in detail. No major barriers to patient understanding were identified. An opportunity to ask questions regarding the treatment plan was provided. All questions were answered. The patient expressed understanding and agreement with the above treatment plan. The patient is aware they should contact our office by phone for worsening of their current condition or the appearance of new urologic symptoms. Compliance is encouraged with any medications and followup testing that is ordered. It is a privilege to participate in the urologic care of your patient. If you have any questions or concerns regarding treatment for the above conditions, or other urologic issues, please do not hesitate to contact me. The office telephone contact is [phone]. This note is constructed using voice recognition software. While every effort has been made to ensure accuracy winding inspector errors may have been included. Yours sincerely, Dr Tomi Harkins MD, [facility] - Urology Providers of Expert, Compassionate Care for the Genitourinary System Coding Level of Care Code [id number] Fac initial, high Diagnoses Bladder outlet obstruction N32.0 Urinary retention with incomplete bladder emptying R33.9
== END 2023-11-28 15:57 | disposition home or self-care (01) ==
LOC: HO.HUSV 13:17
PROVIDERS: Visit Provider Urology
DX: N32.0 Bladder-neck obstruction (principal); R33.9 Retention of urine, unspecified
CPT/HCPCS: 99306

== ENCOUNTER 2024-03-11 06:02 | Outpatient (REF) | payer OTHER, MEDICARE, SELFPAY ==
[2024-03-11 06:05] LABS: MANUAL DIFF FLAG NO
[2024-03-11 06:30] LABS: Basophils Absolute Auto 0.1 X10*3/uL (0.0-0.2); Basophils Percent Auto 0.5 % (0-2); Eosinophils Percent Auto 0.3 % (0-4); Hematocrit 41.7 % (42.0-52.0); Hemoglobin 12.6 g/dl (14.0-18.0); Imm Gran Abs Auto 0.07 X10*3/uL (0.00-0.03); Imm Gran Pct Auto 0.6 % (0.0-0.4); Lymphocytes Percent Auto 16.8 % (20-40); Mean Corpuscular HGB Conc 30.2 g/dl (31.0-36.0); Mean Platelet Volume 9.8 fL (9.4-12.4); Monocytes Absolute Auto 1.4 X10*3/uL (0.1-1.2); Monocytes Percent Auto 11.6 % (2-11); Neutrophils Absolute Auto 8.5 x10*3/uL (2.0-8.3); Neutrophils Percent Auto 70.2 % (45-73); Platelet Count 270 X10*3/uL (160-400); Red Blood Count 4.85 X10*6/uL (4.60-5.80); Red Cell Distribution Width 16.4 % (11.0-16.0); White Blood Count 12.1 X10*3/uL (4.8-10.8)
[2024-03-11 06:31] LABS: Anion Gap 16 (12-20); Blood Urea Nitrogen 37 mg/dL (9-16); Calcium 9.9 mg/dL (8.4-10.2); Carbon Dioxide 28 mmol/L (22-29); Chloride 115 mmol/L (96-108); Estimated Glomerular Filt Rate > 60; Glucose Random 359 mg/dL (60-115); Potassium 4.1 mmol/L (3.3-5.1); Sodium 155 mmol/L (135-145)
[2024-03-11 14:55] LABS: Appearance Urine Turbid; Color Urine Dark Yellow; Glucose Urine UA >=1000 mg/dL (Negative); Leukocyte Esterase Urine Moderate (2+) (Negative); Nitrite Urine Positive (Negative); PH 5.5 (5.0-9.0); Specific Gravity - Urine >= 1.030 (1.005-1.025); UMIC TRIGGER UA YES; Urine Blood Large (3+) (Negative); Urine Ketones Trace mg/dL (Negative); Urine Protein 100 (2+) mg/dL (Neg-Trace)
[2024-03-11 15:06] LABS: Bacteria Urine 4+ (None Seen); RBC Urine >20 /HPF (0-2); Squamous Epithelial Cell Urine 0-2 /HPF (0-2); WBC Urine >50 /HPF (0-5)
== END 2024-03-11 06:03 | disposition home or self-care (01) ==
LOC: HO.HSH3E 06:02
PROVIDERS: Visit Provider Nurse Practitioner Acute Care
DX: R50.9 Fever, unspecified (principal)
CPT/HCPCS: 36415; 80048; 81001; 85025; 87086